=== PATIENT | female | born 1955 | race Caucasian/White ===

== ENCOUNTER 2019-11-04 17:05 | Inpatient (IN) | payer MEDICARE ==
--- NOTE | 2019-11-04 20:03 | ER Document Report ---
ED General - General Chief Complaint: Altered Mental Status Stated Complaint: NAUSEA VOMITTING DIARRHEA Time Seen by Provider: 11/04/19 19:54 Mode of Arrival: Ambulatory Information source: Patient TRAVEL OUTSIDE OF THE [place] IN LAST 30 DAYS: No - HPI Onset: Other - over the last several days Onset/Duration: Gradual Severity: Moderate Pain Level: 1 Associated symptoms: Diarrhea, Nausea, Vomiting, Weakness, Other - confusion Exacerbated by: Denies Relieved by: Denies Similar symptoms previously: No Recently seen / treated by doctor: No Notes: 64 year old female with a history of DM, HTN, COPD presents to the ER for nausea, vomiting, diarrhea, weakness, confusion for the last several days. The patient's daughter apparently told nursing staff the patient is not ever confused so this is very different for her. The patient is able to answer questions but will frequently tell me she just feels sick. The patient denies known sick contacts or recent travel. Past Medical History - General Information source: Patient Cannot obtain history due to: Altered mental status - Social History Smoking Status: Current Every Day Smoker Frequency of alcohol use: None Drug Abuse: None Lives with: Family Family History: Reviewed & Not Pertinent - Past Medical History Cardiac Medical History: Reports: Hx Hypertension Pulmonary Medical History: Reports: Hx COPD Endocrine Medical History: Reports: Hx Diabetes Mellitus Type 2 Psychiatric Medical History: Reports: Hx Depression Past Surgical History: Reports: Hx Cholecystectomy, Hx Hysterectomy - Immunizations Hx Diphtheria, Pertussis, Tetanus Vaccination: No Review of Systems - Review of Systems Constitutional: Weakness, Other - confusion EENT: No symptoms reported Cardiovascular: No symptoms reported Respiratory: No symptoms reported Gastrointestinal: Diarrhea, Nausea, Vomiting Genitourinary: No symptoms reported Female Genitourinary: No symptoms reported Musculoskeletal: No symptoms reported Skin: No symptoms reported Hematologic/Lymphatic: No symptoms reported Neurological/Psychological: Confusion -: Yes All other systems reviewed and negative Physical Exam - Vital signs Vitals: Temp Pulse Resp BP Pulse Ox 98.2 F 113 H 20 131/64 H 91 L 11/04/19 19:08 11/04/19 19:08 11/04/19 19:08 11/04/19 19:08 11/04/19 19:08 - Notes Notes: GENERAL: Somewhat ill-appearing, well-nourished, somewhat confused HEAD: Atraumatic, normocephalic. EYES: Pupils equal round and reactive to light, extraocular movements intact, sclera anicteric, conjunctiva are normal. ENT: External ears normal, nares patent, oropharynx clear without exudates. Moist mucous membranes. NECK: Normal range of motion, supple without lymphadenopathy or JVD. LUNGS: Breath sounds clear to auscultation bilaterally and equal. No wheezes rales or rhonchi. HEART: Regular rate and rhythm without murmurs, rubs or gallops. ABDOMEN: Soft, nontender, normoactive bowel sounds. No guarding, no rebound. No masses appreciated. EXTREMITIES: Normal range of motion, no pitting or edema. No clubbing or cyanosis. NEUROLOGICAL: Oriented to person, place but not to time. Cranial nerves II through XII grossly intact. Normal speech, normal gait. PSYCH: Normal mood, normal affect. SKIN: Warm, Dry, normal turgor, no rashes or lesions noted. Course - Re-evaluation Re-evalutation: 11/05/19 00:29 The patient was found to have hyperglycemia, hypercalcemia, and possible m etastatic changes of the skull on head CT. Patient was is somewhat altered in the ER but her vital signs of fairly stable. Patient treated with IV fluids and an insulin infusion. I had the ICU midlevel provider evaluate the patient due to her hyperglycemia and hypercalcemia and he did so. The ICU midlevel provider feels the patient can be safely managed on the IMCU floor. Dr. Singh was therefore consulted and he accepted the patient. Critical care time was spent speaking to consultants, managing the patient's treatment, and frequent re- evaluations. - Vital Signs Vital signs: Temp Pulse Resp BP Pulse Ox 98.2 F 80 25 H 166/87 H 94 11/04/19 19:56 11/04/19 23:00 11/04/19 23:05 11/04/19 23:05 11/04/19 23:05 - Laboratory Result Diagrams: 11/04/19 20:07 11/04/19 21:27 Laboratory results interpreted by me: 11/04/19 11/04/19 11/04/19 20:07 20:07 21:27 WBC 17.9 H RDW 16.7 H Plt Count 104 L Seg Neuts % (Manual) 95 H Lymphocytes % (Manual) 4 L Monocytes % (Manual) 1 L Abs Neuts (Manual) 17.0 H Sodium 130.1 L Chloride 89 L BUN 37 H Creatinine 1.78 H Est GFR ( Amer) 35 L Est GFR (MDRD) Non-Af 29 L Glucose 578 H* Lactic Acid 3.7 H Calcium 18.9 H* Alkaline Phosphatase 160 H Total Protein 6.2 L - Diagnostic Test Radiology reviewed: Image reviewed, Reports reviewed - EKG Interpretation by Me EKG shows normal: Sinus rhythm, [place], Intervals, QRS Complexes, ST-T Waves Rate: Tachycardia Rhythm: NSR Additional EKG results interpreted by me: 11/04/19 20:13 LVH, borderline inferior q waves Discharge - Discharge Clinical Impression: Hypercalcemia, Hyperglycemia Altered mental status Qualifiers: Altered mental status type: unspecified Qualified Code(s): R41.82 - Altered mental status, unspecified Condition: Stable Disposition: ADMITTED INPATIENT Admitting Provider: Samantha (Hospitalist) Unit Admitted: [facility]
[2019-11-04 20:37] LABS: HEMOGLOBIN 13.1 g/dL (12.0-15.5); MEAN CORPUSCULAR HGB CONC 32.8 g/dL (32.0-36.0); MEAN CORPUSCULAR VOLUME 86 fl (80-97); PLATELET COUNT 104 10^3/uL (150-450); RED BLOOD COUNT 4.68 10^6/uL (3.72-5.28); RED CELL DISTRIBUTION WIDTH 16.7 % (11.5-14.0); WHITE BLOOD COUNT 17.9 10^3/uL (4.0-10.5)
--- NOTE | 2019-11-04 20:43 | RADIOLOGY REPORT (SQ) ---
EXAM DESCRIPTION: CT HEAD WITHOUT IV CONTRAST COMPLETED DATE/TME: 11/04/2019 00:00 CLINICAL HISTORY: 64 years, Female, AMS COMPARISON: None. TECHNIQUE: Noncontrast CT head was acquired. Coronal and sagittal reformations were created. Images stored on PACS. All CT scanners at this facility use dose modulation, iterative reconstruction, and/or weight based dosing when appropriate to reduce radiation dose to as low as reasonably achievable (ALARA). [facility]: Dose Right [facility]: CareDose [facility]: Dose Right [facility]: Teradose 4D [facility]: CURRENT LIMITATIONS: None. FINDINGS: Evaluation of the brain parenchyma reveals mild periventricular and patchy subcortical white matter low attenuation. A more focal area of hypodensity is noted about the anterior aspect of the left lentiform nucleus extending into the myles radiata. No acute intracranial hemorrhage, mass effect, or extra-axial fluid is seen. Ventricles and sulcal spaces are normal in size and configuration. The sella is nearly completely empty. Globes and orbits show no acute abnormality. Paranasal sinuses and mastoid air cells are clear. Innumerable lucent foci are noted throughout the calvarium and skull base. This includes the clivus. In addition, these findings are most conspicuous on the sagittal reformations. IMPRESSION: No acute intracranial hemorrhage or mass effect. Mild chronic microvascular ischemic change with remote lacunar infarct about the anterior aspect of the left lentiform nucleus extending into the myles radiata. Widespread lucent lesions throughout the calvarium and skull base, concerning for either metastatic disease or multiple myeloma. Correlate. TECHNICAL DOCUMENTATION: Quality ID # 436: Final reports with documentation of one or more dose reduction techniques (e.g., Automated exposure control, adjustment of the mA and/or kV according to patient size, use of iterative reconstruction technique) copyright 2011 [employer]- All Rights Reserved
--- NOTE | 2019-11-04 20:48 | RADIOLOGY REPORT (SQ) ---
EXAM DESCRIPTION: XR CHEST 1 VIEW COMPLETED DATE/TME: 11/04/2019 20:01 CLINICAL HISTORY: 64 years, Female, eval for pneumonia COMPARISON: Prior study from 06/13/2014 NUMBER OF VIEWS: One TECHNIQUE: Single frontal view of the chest was obtained portably LIMITATIONS: None. FINDINGS: Cardiac and mediastinal contours are stable. Lungs are clear. No pleural effusion or pneumothorax. The descending thoracic aorta is tortuous. IMPRESSION: No acute disease. copyright 2010 [employer]- All Rights Reserved
[2019-11-04 21:02] LABS: ABSOLUTE LYMPHOCYTES# (MANUAL) 0.7 10^3/uL (0.5-4.7); ABSOLUTE MONOCYTES # (MANUAL) 0.2 10^3/uL (0.1-1.4); BASOPHILS % (MANUAL) 0 % (0-2); EOSINOPHILS % (MANUAL) 0 % (0-6); LYMPHOCYTES % (MANUAL) 4 % (13-45); MONOCYTES % (MANUAL) 1 % (3-13); SEGMENTED NEUTROPHILS % (MAN) 95 % (42-78); TOTAL CELLS COUNTED 100
[2019-11-04 21:03] LABS: ANISOCYTOSIS 1+; POIKILOCYTOSIS 1+
[2019-11-04 21:04] LABS: OVALOCYTES 1+; PLATELET COMMENT DECREASED
[2019-11-04] MEDS: NORMAL SALINE 1000 ML 1,000 ML IV PRN ×2 (21:17→22:47)
[2019-11-04 22:09] LABS: ALBUMIN 3.5 g/dL (3.5-5.0); ALKALINE PHOSPHATASE 160 U/L (38-126); ANION GAP 11 (5-19); ASPARTATE AMINO TRANSFERASE 30 U/L (14-36); BILIRUBIN,DIRECT 0.3 mg/dL (0.0-0.4); BILIRUBIN,TOTAL 1.2 mg/dL (0.2-1.3); BLOOD UREA NITROGEN 37 mg/dL (7-20); CARBON DIOXIDE 30 mmol/L (22-30); CHLORIDE 89 mmol/L (98-107); POTASSIUM 3.8 mmol/L (3.6-5.0); TOTAL PROTEIN 6.2 g/dL (6.3-8.2)
[2019-11-04 22:23] LABS: ALCOHOL < 10 mg/dL (NONE DETECTED); CALCIUM 18.9 mg/dL (8.4-10.2)
[2019-11-04] MEDS ORDERED: DEXTROSE 40% GEL 15 GM TUBE PO PRN ×2 (22:32)
[2019-11-04] MEDS ORDERED: DEXTROSE 50%-WATER 25 GM/50 ML DISP.SYRIN IV PRN ×2 (22:32)
[2019-11-04] MEDS ORDERED: NORMAL SALINE 100 ML with INSULIN REGULAR, HUMAN 100 UNIT IV PRN ×2 (22:32)
[2019-11-04] MEDS ORDERED: GLUCAGON,HUMAN RECOMB 1 MG INJ IM PRN (22:32)
[2019-11-04] MEDS ORDERED: INSULIN REG, HUMAN 100 UNIT/ML 3 ML VIAL (PYX) ONE (23:27)
[2019-11-05] MEDS ORDERED: MAGNESIUM HYDROXIDE SUSP 30 ML UDCUP PO PRN (00:31)
[2019-11-05] MEDS ORDERED: LEVALBUTEROL HCL NEB 0.63 MG/3 ML AMPUL NEB PRN (00:31)
[2019-11-05] MEDS ORDERED: MAG HYDROX/AL HYDROX/SIMETH SUSP 30 ML UDCUP PO PRN (00:31)
[2019-11-05] MEDS ORDERED: PROMETHAZINE HCL INJ 25 MG/1 ML VIAL IV PRN (00:31)
[2019-11-05] MEDS ORDERED: HYDRALAZINE HCL INJ/PF 20 MG/1 ML SDV IV PRN (00:40)
[2019-11-05] MEDS ORDERED: LORAZEPAM INJ 2 MG/1 ML VIAL IV PRN (00:40)
[2019-11-05] MEDS ORDERED: ACETAMINOPHEN 325 MG TABLET PO PRN ×2 (00:40→23:46)
[2019-11-05] MEDS ORDERED: GUAIFENESIN SYRP 200 MG/10 ML UDC PO PRN (00:40)
[2019-11-05] MEDS ORDERED: ACETAMINOPHEN 650 MG SUPP.RECT PR PRN (00:40)
[2019-11-05] MEDS ORDERED: DEXTROSE 40% GEL 15 GM TUBE PO PRN ×2 (00:41)
[2019-11-05] MEDS ORDERED: NORMAL SALINE 100 ML with INSULIN REGULAR, HUMAN 100 UNIT IV PRN ×2 (00:41)
[2019-11-05] MEDS ORDERED: DEXTROSE 50%-WATER 25 GM/50 ML DISP.SYRIN IV PRN ×2 (00:41)
[2019-11-05] MEDS ORDERED: GLUCAGON,HUMAN RECOMB 1 MG INJ IM PRN (00:41)
[2019-11-05 03:33] LABS: FREE T3 1.99 pg/mL (2.77-5.27)
--- NOTE | 2019-11-05 03:37 | PDOC H&P ---
History of Present Illness Admission Date/PCP: 11/05/2019 00:01 INES HUNT MD Patient complains of: Altered mental status History of Present Illness: MELISSA SAM is a 64 year old female who presented to the emergency room with her family complaining of a 5-day history of altered mental status. Patient's daughter admitted the patient's mental status has gradually worsened over the l ast 5 days to the point where she is now continuously moderately confused. The patient is pleasant and affable, but confused and unable to provide any input into her medical history. Her altered mental status has been associated with nausea, vomiting and diarrhea over the same 5-day interval. Her altered mental status has been accompanied by generalized weakness and lethargy. Her daughter denies any additional associated or accompanying signs and symptoms. Her daughter denies prior similar episodes. Her daughter has not identified any aggravating or ameliorating factors for her mother's altered mental status. In the emergency room she was found to have a leukocytosis, hyperglycemia, severe hypercalcemia and an acute kidney injury. She was subsequently admitted to the hospital for further evaluation treatment. Past Medical History Past Medical History: Patient is unable to provide medical history due to her acute confusion. The information presented for past medical history, past surgical history, social history and family medical history are obtained from the best available reliable source. Cardiac Medical History: Reports: Hypertension Denies: Coronary Artery Disease, Myocardial Infarction, Hyperlipidema Pulmonary Medical History: Reports: Chronic Obstructive Pulmonary Disease (COPD) Denies: Asthma, Pneumonia EENT Medical History: Denies: Cataracts, Ears - Hearing aids Neurological Medical History: Denies: Hemorrhagic CVA, Ischemic CVA, Seizures Endocrine Medical History: Reports: Diabetes Mellitus Type 2 Denies: Diabetes Mellitus Type 1, Hyperthyroidism, Hypothyroidism Renal/ Medical History: Denies: Chronic Kidney Disease, Nephrolithiasis Malignancy Medical History: Reports: None GI Medical History: Denies: Cirrhosis, Hepatitis Musculoskeltal Medical History: Denies: Arthritis, Fibromyalgia Skin Medical History: Denies: Eczema, Psoriasis Psychiatric Medical History: Reports: Depression, Tobacco Dependency Denies: Alcohol Dependency, Substance Abuse Traumatic Medical History: Reports: None Hematology: Denies: Anemia, Bleeding Tendencies Infectious Medical History: Reports: None Past Surgical History Past Surgical History: Patient is unable to provide medical history due to her acute confusion. The information presented for past medical history, past surgical history, social history and family medical history are obtained from the best available reliable source. Past Surgical History: Reports: Cholecystectomy, Hysterectomy Social History Information Source: Relative Lives with: Family, Spouse/Significant other Smoking Status: Current Every Day Smoker Electronic Cigarette use?: No Frequency of Alcohol Use: None Hx Recreational Drug Use: No Drugs: None Hx Prescription Drug Abuse: No Past Social History Note: Patient is unable to provide medical history due to her acute confusion. The information presented for past medical history, past surgical history, social history and family medical history are obtained from the best available reliable source. - Advance Directive Resuscitation Status: Full Code Surrogate healthcare decision maker:: Leonadr Sam Family History Family History: No family medical history information is available in the medical record. Parental Family History Reviewed: No Children Family History Reviewed: No Sibling(s) Family History Reviewed.: No Medication/Allergy Home Medications: Azithromycin [Zithromax 250 mg Tablet] 250 mg PO ASDIR PRN #6 tablet 08/01/12 Hydrocodone Bit/Homatropine [Hycodan Syrup 5-1.5 mg/ 5 ml Ud Cup] 5 ml PO ASDIR PRN #100 ml 08/01/12 Polymyxin B Sulfate/Tmp [Polytrim Oph Soln 10 Ml Bottle] 1 drop OD QID #1 bottle 08/01/12 Review of Systems ROS unobtainable: Due to mental status - Acute confusion Physical Exam Vital Signs: Temp Pulse Resp BP Pulse Ox 98.2 F 80 25 H 166/87 H 94 11/04/19 19:56 11/04/19 23:00 11/04/19 23:05 11/04/19 23:05 11/04/19 23:05 Intake & Output 11/02/19 11/03/19 11/04/19 23:59 23:59 23:59 Intake Total 1000 Balance 1000 General appearance: PRESENT: no acute distress, cooperative, other - Confused Head exam: PRESENT: atraumatic, normocephalic Eye exam: PRESENT: conjunctiva pink. ABSENT: conjunctival injection, scleral icterus Ear exam: PRESENT: normal external ear exam. ABSENT: bleeding, drainage Mouth exam: PRESENT: dry mucosa, neck supple Neck exam: ABSENT: thyromegaly, tracheal deviation Respiratory exam: PRESENT: prolonged expiratory phas - Minimally prolonged expiratory phase noted in all gaspar, symmetrical, unlabored, wheezes - Minimal expiratory wheezes noted throughout all gaspar Cardiovascular exam: PRESENT: RRR. ABSENT: clicks, gallop, rubs Pulses: PRESENT: normal radial pulses, normal dorsalis pedis pul Vascular exam: PRESENT: normal capillary refill. ABSENT: pallor GI/Abdominal exam: PRESENT: normal bowel sounds, soft Rectal exam: PRESENT: deferred Extremities exam: ABSENT: joint swelling, pedal edema Musculoskeletal exam: ABSENT: deformity, dislocation Neurological exam: PRESENT: altered - Mental confusion with mild lethargy, somewhat irritable when initially aroused. Psychiatric exam: PRESENT: other - Confused, irritability noted on arousal Skin exam: PRESENT: dry, intact, warm. ABSENT: jaundice, rash, urticaria Results Laboratory Results: 11/04/19 20:07 11/04/19 21:27 11/04/19 11/04/19 11/04/19 20:07 20:07 20:07 WBC 17.9 H RBC 4.68 Hgb 13.1 Hct 40.0 MCV 86 MCH 28.0 MCHC 32.8 RDW 16.7 H Plt Count 104 L Seg Neutrophils % Not Reportable Sodium Cancelled Potassium Cancelled Chloride Cancelled Carbon Dioxide Cancelled Anion Gap Cancelled BUN Cancelled Creatinine Cancelled Est GFR ( Amer) Cancelled Est GFR (Non-Af Amer) Cancelled Glucose Cancelled Lactic Acid 3.7 H Calcium Cancelled Magnesium Cancelled Total Bilirubin Cancelled AST Cancelled Alkaline Phosphatase Cancelled Total Protein Cancelled Albumin Cancelled 11/04/19 21:27 WBC RBC Hgb Hct MCV MCH MCHC RDW Plt Count Seg Neutrophils % Sodium 130.1 L Potassium 3.8 Chloride 89 L Carbon Dioxide 30 Anion Gap 11 BUN 37 H Creatinine 1.78 H Est GFR ( Amer) 35 L Est GFR (Non-Af Amer) Glucose 578 H* Lactic Acid Calcium 18.9 H* Magnesium 1.9 Total Bilirubin 1.2 AST 30 Alkaline Phosphatase 160 H Total Protein 6.2 L Albumin 3.5 Impressions: Head CT 11/04/19 00:00 IMPRESSION: No acute intracranial hemorrhage or mass effect. Mild chronic microvascular ischemic change with remote lacunar infarct about the anterior aspect of the left lentiform nucleus extending into the myles radiata. Widespread lucent lesions throughout the calvarium and skull base, concerning for either metastatic disease or multiple myeloma. Correlate. TECHNICAL DOCUMENTATION: Quality ID # 436: Final reports with documentation of one or more dose reduction techniques (e.g., Automated exposure control, adjustment of the mA and/or kV according to patient size, use of iterative reconstruction technique) copyright 2011 [email or web address]- All Rights Reserved Chest X-Ray 11/04/19 20:01 IMPRESSION: No acute disease. copyright 2011 [email or web address]- All Rights Reserved Assessment and Plan - Diagnosis (2) Acute kidney injury (nontraumatic) Is this a current diagnosis for this admission?: Yes (3) Hypercalcemia Is this a current diagnosis for this admission?: Yes (4) Hyperglycemia Is this a current diagnosis for this admission?: Yes (5) Leukocytosis Qualifiers: Leukocytosis type: unspecified Qualified Code(s): D72.829 - Elevated white blood cell count, unspecified Is this a current diagnosis for this admission?: Yes (6) Diabetes mellitus type 2 in nonobese Is this a current diagnosis for this admission?: Yes (7) Hypertension Is this a current diagnosis for this admission?: Yes (8) Chronic obstructive pulmonary disease Is this a current diagnosis for this admission?: Yes (9) Tobacco use disorder, severe, dependence Is this a current diagnosis for this admission?: Yes - Plan Summary Summary: Patient is admitted to [facility] where she will receive routine supportive and symptomatic cares. She will be on continuous telemetry monitoring. She will receive high-volume IV fluids, as well as a titrated IV insulin infusion per protocol. Her renal function and electrolytes will be monitored closely with serial basic metabolic profiles and magnesium levels. She will receive Ativan 1 mg IV every 4 hours as needed for anxiety or restlessness. She will be on a cardiac and diabetic restricted diet. Her usual medications will be continued, as appropriate, once her medication list has been verified and reconciled. CBCs and other laboratory and/or radiographic evaluations will be obtained as appropriate. A nicotine replacement patch will be available for the patient's use, if desired. - Time Time Spent with patient: Less than 15 minutes Medications reviewed and adjusted accordingly: Yes Anticipated discharge: Home with Homehealth - Inpatient Certification Based on my medical assessment, after consideration of the patient's comorbi dities, presenting symptoms, or acuity I expect that the services needed warrant INPATIENT care.: Yes I certify that my determination is in accordance with my understanding of Medicare's requirements for reasonable and necessary INPATIENT services [42 CFR 412.3e].: Yes Medical Necessity: Need Close Monitoring Due to Risk of Patient Decompensation, Need For IV Fluids, Need For Continuous Telemetry Monitoring, Need for Neurological Checks, Risk of Complication if Not Cared For in Hospital
[2019-11-05 03:47] LABS: THYROID STIMULATING HORMONE 0.67 uIU/mL (0.47-4.68)
[2019-11-05 04:01] LABS: ARTERIAL BLOOD BASE EXCESS -1.7 mmol/L; ARTERIAL BLOOD FIO2 3L; ARTERIAL BLOOD H2CO3 1.15 mmol/L (1.05-1.35); ARTERIAL BLOOD HCO3 22.8 mmol/L (20-24); ARTERIAL BLOOD O2 SATURATION 92.5 % (94-98); ARTERIAL BLOOD PCO2 38.1 mmHg (35-45); ARTERIAL BLOOD PO2 64.2 mmHg (80-100)
[2019-11-05] MEDS: POTASSI CL 20 MEQ/NS 1L 1,000 ML IV PRN ×2 (04:05→08:28)
[2019-11-05] MEDS ORDERED: POTASSIUM CHLORIDE 20 MEQ/50 ML RTU IV ONE (05:30)
[2019-11-05] MEDS ORDERED: DILTIAZEM HCL INJ 25 MG/5 ML VIAL IV ONE ×2 (05:30→07:00)
[2019-11-05 05:39] LABS: HEMATOCRIT 37.6 % (36.0-47.0); HEMOGLOBIN 12.5 g/dL (12.0-15.5); MEAN CORPUSCULAR HEMOGLOBIN 27.8 pg (27.0-33.4); MEAN CORPUSCULAR HGB CONC 33.2 g/dL (32.0-36.0); MEAN CORPUSCULAR VOLUME 84 fl (80-97); RED BLOOD COUNT 4.49 10^6/uL (3.72-5.28); RED CELL DISTRIBUTION WIDTH 16.8 % (11.5-14.0); WHITE BLOOD COUNT 14.1 10^3/uL (4.0-10.5)
[2019-11-05] MEDS: HEPARIN SOD (PORCINE) 5,000 UNIT/ML 1 ML VIAL SUBCUT SCH ×3 (05:39→23:38)
[2019-11-05 05:50] LABS: ANION GAP 9 (5-19); BLOOD UREA NITROGEN 36 mg/dL (7-20); CARBON DIOXIDE 26 mmol/L (22-30); CHLORIDE 99 mmol/L (98-107); GLUCOSE 376 mg/dL (75-110); PHOSPHORUS 3.6 mg/dL (2.5-4.5); POTASSIUM 3.7 mmol/L (3.6-5.0)
[2019-11-05 05:50] LABS: APPEARANCE,URINE SLIGHTLY-CLOUDY; BILIRUBIN,URINE NEGATIVE (NEGATIVE); COLOR,URINE YELLOW; GLUCOSE, URINE >=500 mg/dL (NEGATIVE); KETONES,URINE NEGATIVE (NEGATIVE); PROTEIN,URINE 30 mg/dL (NEGATIVE); URINE SPECIFIC GRAVITY 1.014; UROBILINOGEN,URINE NEGATIVE mg/dL (<2.0)
[2019-11-05 05:58] LABS: PLATELET COUNT 84 10^3/uL (150-450)
[2019-11-05 06:36] LABS: CALCIUM 18.9 mg/dL (8.4-10.2)
[2019-11-05] MEDS: DILTIAZEM HCL/D5W 125 MG/125 ML RTUINJ IV PRN ×3 (07:30→10:02)
[2019-11-05] MEDS ORDERED: ZOLEDRONIC ACID 4 MG/100 ML RTU IV ONE ×3 (07:35→08:00)
--- NOTE | 2019-11-05 07:48 | EKG REPORT ---
SEVERITY:- ABNORMAL ECG - SINUS TACHYCARDIA PROBABLE LEFT ATRIAL ABNORMALITY LVH WITH SECONDARY REPOLARIZATION ABNORMALITY BORDERLINE INFERIOR Q WAVES : Confirmed by: Noble Kelley MD 05-Nov-2019 07:47:46
[2019-11-05] MEDS ORDERED: METOCLOPRAMIDE HCL INJ/PF 10 MG/2 ML SDV IV SCH (08:00)
[2019-11-05] MEDS ORDERED: CALCITONIN,SALMON,SYNTHETIC 400 UNIT/2 ML VIAL IM ONE ×2 (08:15→18:00)
[2019-11-05] MEDS ORDERED: NORMAL SALINE 1000 ML 1,000 ML IV ONE (08:41)
[2019-11-05] MEDS ORDERED: NORMAL SALINE 1000 ML 1,000 ML IV PRN (08:41)
[2019-11-05] MEDS ORDERED: INSULIN NPH (ISOPHANE), HUMAN 100 UNIT/ML 3 ML SUBCUT ONE (09:00)
[2019-11-05] MEDS ORDERED: DILTIAZEM HCL/D5W 125 MG/125 ML RTUINJ IV ONE (09:33)
[2019-11-05 09:42] LABS: ARTERIAL BLOOD BASE EXCESS 1.2 mmol/L; ARTERIAL BLOOD H2CO3 1.21 mmol/L (1.05-1.35); ARTERIAL BLOOD HCO3 25.7 mmol/L (20-24); ARTERIAL BLOOD O2 SATURATION 99.2 % (94-98); ARTERIAL BLOOD PCO2 40.3 mmHg (35-45); ARTERIAL BLOOD PH 7.42 (7.35-7.45); ARTERIAL BLOOD PO2 173.2 mmHg (80-100)
[2019-11-05 09:43] LABS: ARTERIAL BLOOD FIO2 15L
[2019-11-05] MEDS ORDERED: DEXAMETHASONE SOD PHOS INJ 10 MG/1 ML VIAL IV ONE (10:00)
[2019-11-05] MEDS ORDERED: PANTOPRAZOLE SODIUM 40 MG VIAL IV SCH (10:00)
[2019-11-05] MEDS ORDERED: DOCUSATE SODIUM 100 MG CAPSULE PO SCH (10:00)
--- NOTE | 2019-11-05 10:13 | RADIOLOGY REPORT (SQ) ---
EXAM DESCRIPTION: CHEST SINGLE VIEW IMAGES COMPLETED DATE/TIME: 11/05/2019 10:04 am REASON FOR STUDY: hypoxia COMPARISON: 11/04/2019. EXAM PARAMETERS: NUMBER OF VIEWS: One view. TECHNIQUE: Single frontal radiographic view of the chest acquired. RADIATION DOSE: NA LIMITATIONS: None. FINDINGS: LUNGS AND PLEURA: No opacities, masses or pneumothorax. No pleural effusion. MEDIASTINUM AND HILAR STRUCTURES: No masses. Contour normal. HEART AND VASCULAR STRUCTURES: Mild cardiomegaly. Mild vascular prominence. BONES: No acute findings. HARDWARE: None in the chest. OTHER: No other significant finding. IMPRESSION: STABLE APPEARANCE. MILD CARDIOMEGALY AND MILD VASCULAR PROMINENCE. TECHNICAL DOCUMENTATION: JOB ID: [id number] 2010 [email or web address]- All Rights Reserved Reading location - IP/workstation name: [email or web address]
--- NOTE | 2019-11-05 12:03 | PDOC CONSULTATION ---
Consultation Consult Date: 11/05/19 Provider Consulted: Jayden HERNANDEZ Consult reason:: hypercalcemia and MELA History of Present Illness Admission Date/PCP: 11/05/19 00:00 INES HUNT MD History of Present Illness: MELISSA SAM is a 64 year old female with unknown past medical history was as ked to be seen by the hospitalist for evaluation of her hypercalcemia and MELA. The patient is currently sleeping or rather unresponsive even to loud oral commands and shaking. She is breathing normally and looks comfortable. She does respond to painful stimuli. History was also gathered by discussions with the treating nurse as well as review of chart. As per chart review the patient was brought to the emergency room by her family complaining of a 5-day history of altered mental status. Patient's daughter admitted the patient's mental status has gradually worsened over the last 5 days to the point where she is now continuously moderately confused. Her altered mental status has been associated with nausea, vomiting and diarrhea over the same 5-day interval. Her altered mental status has been accompanied by generalized weakness and lethargy. Her daughter denies any additional asso ciated or accompanying signs and symptoms. Her daughter denies prior similar episodes. Her daughter has not identified any aggravating or ameliorating factors for her mother's altered mental status. In the emergency room she was found to have a leukocytosis, hyperglycemia, severe hypercalcemia of 18.9, slightly elevated ALP of 160, low PTH of 9.9, and an acute kidney injury with a creatinine of 1.7 which has dropped to 1.2 as of this AM. She has been begun on IV fluid resuscitation along with administration of calcitonin and bisphosphonates. She is making relatively good amounts of barrera k-colored urine. Other relevant labs and studies shows that her sugars were high and A1c was 9.9, CO2 was 30 and has dropped down to [address] hydration and a CT scan done showed multiple translucent lesions in the skull. Past Medical History Cardiac Medical History: Denies: Coronary Artery Disease, Hyperlipidemia, Myocardial Infarction Pulmonary Medical History: Reports: Chronic Obstructive Pulmonary Disease (COPD) Denies: Asthma, Pneumonia EENT Medical History: Denies: Cataracts, Ears - Hearing aids Neurological Medical History: Denies: Hemorrhagic CVA, Ischemic CVA, Seizures Endocrine Medical History: Reports: Diabetes Mellitus Type 2 Denies: Diabetes Mellitus Type 1, Hyperthyroidism, Hypothyroidism Complications of Diabetes: Reports: None Renal/ Medical History: Denies: Nephrolithiasis Malignancy Medical History: Reports: None GI Medical History: Denies: Cirrhosis, Hepatitis Musculoskeltal Medical History: Denies: Arthritis, Fibromyalgia Skin Medical History: Denies: Eczema, Psoriasis Psychiatric Medical History: Reports: Depression, Tobacco Dependency Denies: Alcohol Dependency, Substance Abuse Traumatic Medical History: Reports: None Infectious Medical History: Reports: None Past Surgical History Past Surgical History: Reports: Cholecystectomy, Hysterectomy Social History Lives with: Family, Spouse/Significant other Smoking Status: Current Every Day Smoker Electronic Cigarette use?: No Frequency of Alcohol Use: None Hx Recreational Drug Use: No Drugs: None Hx Prescription Drug Abuse: No - Advance Directive Resuscitation Status: Full Code Family History Parental Family History Reviewed: No Children Family History Reviewed: No Sibling(s) Family History Reviewed.: No Medication/Allergy Home Medications: Azithromycin [Zithromax 250 mg Tablet] 250 mg PO ASDIR PRN #6 tablet 08/01/12 Hydrocodone Bit/Homatropine [Hycodan Syrup 5-1.5 mg/ 5 ml Ud Cup] 5 ml PO ASDIR PRN #100 ml 08/01/12 Polymyxin B Sulfate/Tmp [Polytrim Oph Soln 10 Ml Bottle] 1 drop OD QID #1 bottle 08/01/12 Allergies/Adverse Reactions: No Known Allergies Allergy (Unverified 11/05/19 03:41) Review of Systems ROS unobtainable: Due to mental status Physical Exam Vital Signs: Temp Pulse Resp BP Pulse Ox 100.2 F 104 H 19 127/71 H 86 L 11/05/19 08:05 11/05/19 09:56 11/05/19 08:05 11/05/19 09:56 11/05/19 08:05 Intake & Output 11/04/19 11/05/19 11/06/19 06:59 06:59 06:59 Intake Total 2018 1974 Balance 2018 1974 Weight 86.4 kg Exam: She is not responding to loud oral commands but responds to painful stimuli. She is breathing comfortably and looks in no distress. Eye exam: PRESENT: EOMI, PERRLA. ABSENT: scleral icterus Ear exam: PRESENT: normal external ear exam Neck exam: ABSENT: lymphadenopathy, meningismus, tenderness, thyromegaly, tracheal deviation Respiratory exam: PRESENT: clear to auscultation paula, decreased breath sounds. ABSENT: crackles Cardiovascular exam: PRESENT: +S1, +S2 GI/Abdominal exam: PRESENT: normal bowel sounds, soft. ABSENT: organomegaly, tenderness Extremities exam: ABSENT: pedal edema Neurological exam: PRESENT: altered Skin exam: PRESENT: dry. ABSENT: cyanosis, erythema, mottled, rash Results Laboratory Results: 11/05/19 05:14 11/05/19 05:14 11/04/19 11/04/19 11/04/19 20:07 20:07 20:07 WBC 17.9 H RBC 4.68 Hgb 13.1 Hct 40.0 MCV 86 MCH 28.0 MCHC 32.8 RDW 16.7 H Plt Count 104 L Seg Neutrophils % Not Reportable Carbonic Acid HCO3/H2CO3 Ratio ABG pH ABG pCO2 ABG pO2 ABG HCO3 ABG O2 Saturation ABG Base Excess FiO2 Sodium Cancelled Potassium Cancelled Chloride Cancelled Carbon Dioxide Cancelled Anion Gap Cancelled BUN Cancelled Creatinine Cancelled Est GFR ( Amer) Cancelled Est GFR (Non-Af Amer) Cancelled Glucose Cancelled Lactic Acid 3.7 H Calcium Cancelled Phosphorus Magnesium Cancelled Total Bilirubin Cancelled AST Cancelled Alkaline Phosphatase Cancelled Ammonia Total Protein Cancelled Albumin Cancelled TSH Free T4 Free T3 pg/mL PTH Intact Urine Color Urine Appearance Urine pH Ur Specific [place] Urine Protein Urine Glucose (UA) Urine Ketones Urine Blood Urine RBC (Auto) 11/04/19 11/04/19 11/05/19 21:27 21:27 02:05 WBC RBC Hgb Hct MCV MCH MCHC RDW Plt Count Seg Neutrophils % Carbonic Acid HCO3/H2CO3 Ratio ABG pH ABG pCO2 ABG pO2 ABG HCO3 ABG O2 Saturation ABG Base Excess FiO2 Sodium 130.1 L Potassium 3.8 Chloride 89 L Carbon Dioxide 30 Anion Gap 11 BUN 37 H Creatinine 1.78 H Est GFR ( Amer) 35 L Est GFR (Non-Af Amer) Glucose 578 H* Lactic Acid Calcium 18.9 H* Phosphorus Magnesium 1.9 Total Bilirubin 1.2 AST 30 Alkaline Phosphatase 160 H Ammonia Total Protein 6.2 L Albumin 3.5 TSH 0.67 Free T4 Free T3 pg/mL 1.99 L PTH Intact Urine Color YELLOW Urine Appearance SLIGHTLY-CLOUDY Urine pH 5.0 Ur Specific [place] 1.014 Urine Protein 30 H Urine Glucose (UA) >=500 H Urine Ketones NEGATIVE Urine Blood SMALL H Urine RBC (Auto) 0 11/05/19 11/05/19 11/05/19 03:20 03:52 05:14 WBC 14.1 H RBC 4.49 Hgb 12.5 Hct 37.6 MCV 84 MCH 27.8 MCHC 33.2 RDW 16.8 H Plt Count 84 L Seg Neutrophils % Carbonic Acid Cancelled 1.15 HCO3/H2CO3 Ratio Cancelled 19:1 ABG pH Cancelled 7.40 ABG pCO2 Cancelled 38.1 ABG pO2 Cancelled 64.2 L ABG HCO3 Cancelled 22.8 ABG O2 Saturation Cancelled 92.5 L ABG Base Excess Cancelled -1.7 FiO2 Cancelled 3L Sodium Potassium Chloride Carbon Dioxide Anion Gap BUN Creatinine Est GFR ( Amer) Est GFR (Non-Af Amer) Glucose Lactic Acid Calcium Phosphorus Magnesium Total Bilirubin AST Alkaline Phosphatase Ammonia Total Protein Albumin TSH Free T4 Free T3 pg/mL PTH Intact Urine Color Urine Appearance Urine pH Ur Specific [place] Urine Protein Urine Glucose (UA) Urine Ketones Urine Blood Urine RBC (Auto) 11/05/19 11/05/19 11/05/19 05:14 05:14 08:59 WBC RBC Hgb Hct MCV MCH MCHC RDW Plt Count Seg Neutrophils % Carbonic Acid HCO3/H2CO3 Ratio ABG pH ABG pCO2 ABG pO2 ABG HCO3 ABG O2 Saturation ABG Base Excess FiO2 Sodium 134.1 L Potassium 3.7 Chloride 99 Carbon Dioxide 26 Anion Gap 9 BUN 36 H Creatinine 1.29 H Est GFR ( Amer) 50 L Est GFR (Non-Af Amer) Glucose 376 H Lactic Acid 3.2 H 2.3 H Calcium 18.9 H* Phosphorus 3.6 Magnesium 2.0 Total Bilirubin AST Alkaline Phosphatase Ammonia Total Protein Albumin TSH Free T4 Free T3 pg/mL PTH Intact Urine Color Urine Appearance Urine pH Ur Specific [place] Urine Protein Urine Glucose (UA) Urine Ketones Urine Blood Urine RBC (Auto) 11/05/19 11/05/19 11/05/19 08:59 08:59 09:25 WBC RBC Hgb Hct MCV MCH MCHC RDW Plt Count Seg Neutrophils % Carbonic Acid 1.21 HCO3/H2CO3 Ratio 21:1 ABG pH 7.42 ABG pCO2 40.3 ABG pO2 173.2 H ABG HCO3 25.7 H ABG O2 Saturation 99.2 H ABG Base Excess 1.2 FiO2 15L Sodium Potassium Chloride Carbon Dioxide Anion Gap BUN Creatinine Est GFR ( Amer) Est GFR (Non-Af Amer) Glucose Lactic Acid Calcium Phosphorus Magnesium Total Bilirubin AST Alkaline Phosphatase Ammonia Total Protein Albumin TSH Free T4 1.07 Free T3 pg/mL PTH Intact 9.9 L Urine Color Urine Appearance Urine pH Ur Specific [place] Urine Protein Urine Glucose (UA) Urine Ketones Urine Blood Urine RBC (Auto) 11/05/19 10:00 WBC RBC Hgb Hct MCV MCH MCHC RDW Plt Count Seg Neutrophils % Carbonic Acid HCO3/H2CO3 Ratio ABG pH ABG pCO2 ABG pO2 ABG HCO3 ABG O2 Saturation ABG Base Excess FiO2 Sodium Potassium Chloride Carbon Dioxide Anion Gap BUN Creatinine Est GFR ( Amer) Est GFR (Non-Af Amer) Glucose Lactic Acid Calcium Phosphorus Magnesium Total Bilirubin AST Alkaline Phosphatase Ammonia 10.4 Total Protein Albumin TSH Free T4 Free T3 pg/mL PTH Intact Urine Color Urine Appearance Urine pH Ur Specific [place] Urine Protein Urine Glucose (UA) Urine Ketones Urine Blood Urine RBC (Auto) 11/05/19 08:59 NT-Pro-B Natriuret Pep 2270 H Impressions: Head CT 11/04/19 00:00 IMPRESSION: No acute intracranial hemorrhage or mass effect. Mild chronic microvascular ischemic change with remote lacunar infarct about the anterior aspect of the left lentiform nucleus extending into the myles radiata. Widespread lucent lesions throughout the calvarium and skull base, concerning for either metastatic disease or multiple myeloma. Correlate. TECHNICAL DOCUMENTATION: Quality ID # 436: Final reports with documentation of one or more dose reduction techniques (e.g., Automated exposure control, adjustment of the mA and/or kV according to patient size, use of iterative reconstruction technique) copyright 2011 [employer]- All Rights Reserved Chest X-Ray 11/05/19 00:00 IMPRESSION: STABLE APPEARANCE. MILD CARDIOMEGALY AND MILD VASCULAR PROMINENCE. Assessment & Plan - Diagnosis (1) Hypercalcemia Is this a current diagnosis for this admission?: Yes Plan: She has very severe hypercalcemia of 18.9 with a low PTH, slightly elevated alkaline phosphatase and multiple trans-lucencies in the skull on CT scan.Differential diagnosis would be leading with multiple myeloma followed by other malignancies especially cancer of the breast,lungs etc. However, surprisingly her hemoglobin is normal even though this could be partly from hemoconcentration. Currently her renal compromise which is mild has responded very well to the fluid resuscitation and she is making relatively good amounts of urine. She has also been administered IV calcitonin and bisphosphonates. At this moment, I do not see the need for hemodialysis. I would follow-up with serial labs and see how she does over the next 24 hours. (2) Acute kidney injury (nontraumatic) Is this a current diagnosis for this admission?: Yes Plan: Nonoliguric. Seems to be responding to IV fluid resuscitation. Monitor. (3) Acute metabolic encephalopathy Plan: Secondary to severe hypercalcemia.See how she responds to current measures that has been instituted.I would avoid sedatives as much as possible. (4) Diabetes mellitus type 2 in nonobese Is this a current diagnosis for this admission?: Yes Plan: As per hospitalist. (5) Tobacco use disorder, severe, dependence Is this a current diagnosis for this admission?: Yes Plan: Which brings in the possibility of malignancy even higher.
[2019-11-05 12:21] LABS: ANION GAP 5 (5-19); BLOOD UREA NITROGEN 38 mg/dL (7-20); CARBON DIOXIDE 25 mmol/L (22-30); CHLORIDE 105 mmol/L (98-107); GLUCOSE 230 mg/dL (75-110); POTASSIUM 3.8 mmol/L (3.6-5.0)
--- NOTE | 2019-11-05 12:25 | EKG REPORT ---
SEVERITY:- ABNORMAL ECG - ATRIAL FIBRILLATION LVH WITH SECONDARY REPOLARIZATION ABNORMALITY INFERIOR INFARCT, AGE INDETERMINATE (NEW) : Confirmed by: Noble Kelley MD 05-Nov-2019 12:23:42
[2019-11-05 12:57] LABS: CALCIUM 18.2 mg/dL (8.4-10.2)
[2019-11-05] MEDS: NORMAL SALINE 1000 ML 1,000 ML IV PRN ×2 (13:27→21:15)
--- NOTE | 2019-11-05 13:27 | PDOC PROGRESS REPORT ---
Subjective Progress Note for:: 11/05/19 Subjective:: Unable to obtain subjective due to mental status Reason For Visit: HYPERCALCEMIA,ACUTE METABOLIC ENCEPHALOPATHY, Physical Exam Vital Signs: Temp Pulse Resp BP Pulse Ox 100.6 F H 102 H 24 H 111/51 L 94 11/05/19 11:19 11/05/19 11:39 11/05/19 11:19 11/05/19 11:39 11/05/19 11:19 Intake & Output 11/04/19 11/05/19 11/06/19 06:59 06:59 06:59 Intake Total 2018 1974 Balance 2018 1974 Weight 86.4 kg General appearance: PRESENT: mild distress. ABSENT: cooperative Neck exam: ABSENT: JVD - Hard to appreciate given patient's body habitus Respiratory exam: PRESENT: clear to auscultation paula, symmetrical, tachypnea, unlabored. ABSENT: crackles, wheezes Cardiovascular exam: PRESENT: irregular rhythm, +S1, +S2, tachycardia GI/Abdominal exam: PRESENT: soft. ABSENT: rebound, rigid, tenderness Extremities exam: PRESENT: pedal edema Neurological exam: PRESENT: altered - Obtunded during time of encounter. GCS T8 E1 V2 M5. ABSENT: alert, awake, CN II-XII grossly intact Results Laboratory Results: 11/05/19 05:14 11/05/19 11:50 11/04/19 11/04/19 11/04/19 20:07 20:07 20:07 WBC 17.9 H RBC 4.68 Hgb 13.1 Hct 40.0 MCV 86 MCH 28.0 MCHC 32.8 RDW 16.7 H Plt Count 104 L Seg Neutrophils % Not Reportable Carbonic Acid HCO3/H2CO3 Ratio ABG pH ABG pCO2 ABG pO2 ABG HCO3 ABG O2 Saturation ABG Base Excess FiO2 Sodium Cancelled Potassium Cancelled Chloride Cancelled Carbon Dioxide Cancelled Anion Gap Cancelled BUN Cancelled Creatinine Cancelled Est GFR ( Amer) Cancelled Est GFR (Non-Af Amer) Cancelled Glucose Cancelled Lactic Acid 3.7 H Calcium Cancelled Phosphorus Magnesium Cancelled Total Bilirubin Cancelled AST Cancelled Alkaline Phosphatase Cancelled Ammonia Total Protein Cancelled Albumin Cancelled TSH Free T4 Free T3 pg/mL PTH Intact Urine Color Urine Appearance Urine pH Ur Specific [place] Urine Protein Urine Glucose (UA) Urine Ketones Urine Blood Urine RBC (Auto) 11/04/19 11/04/19 11/05/19 21:27 21:27 02:05 WBC RBC Hgb Hct MCV MCH MCHC RDW Plt Count Seg Neutrophils % Carbonic Acid HCO3/H2CO3 Ratio ABG pH ABG pCO2 ABG pO2 ABG HCO3 ABG O2 Saturation ABG Base Excess FiO2 Sodium 130.1 L Potassium 3.8 Chloride 89 L Carbon Dioxide 30 Anion Gap 11 BUN 37 H Creatinine 1.78 H Est GFR ( Amer) 35 L Est GFR (Non-Af Amer) Glucose 578 H* Lactic Acid Calcium 18.9 H* Phosphorus Magnesium 1.9 Total Bilirubin 1.2 AST 30 Alkaline Phosphatase 160 H Ammonia Total Protein 6.2 L Albumin 3.5 TSH 0.67 Free T4 Free T3 pg/mL 1.99 L PTH Intact Urine Color YELLOW Urine Appearance SLIGHTLY-CLOUDY Urine pH 5.0 Ur Specific [place] 1.014 Urine Protein 30 H Urine Glucose (UA) >=500 H Urine Ketones NEGATIVE Urine Blood SMALL H Urine RBC (Auto) 0 11/05/19 11/05/19 11/05/19 03:20 03:52 05:14 WBC 14.1 H RBC 4.49 Hgb 12.5 Hct 37.6 MCV 84 MCH 27.8 MCHC 33.2 RDW 16.8 H Plt Count 84 L Seg Neutrophils % Carbonic Acid Cancelled 1.15 HCO3/H2CO3 Ratio Cancelled 19:1 ABG pH Cancelled 7.40 ABG pCO2 Cancelled 38.1 ABG pO2 Cancelled 64.2 L ABG HCO3 Cancelled 22.8 ABG O2 Saturation Cancelled 92.5 L ABG Base Excess Cancelled -1.7 FiO2 Cancelled 3L Sodium Potassium Chloride Carbon Dioxide Anion Gap BUN Creatinine Est GFR ( Amer) Est GFR (Non-Af Amer) Glucose Lactic Acid Calcium Phosphorus Magnesium Total Bilirubin AST Alkaline Phosphatase Ammonia Total Protein Albumin TSH Free T4 Free T3 pg/mL PTH Intact Urine Color Urine Appearance Urine pH Ur Specific [place] Urine Protein Urine Glucose (UA) Urine Ketones Urine Blood Urine RBC (Auto) 11/05/19 11/05/19 11/05/19 05:14 05:14 08:59 WBC RBC Hgb Hct MCV MCH MCHC RDW Plt Count Seg Neutrophils % Carbonic Acid HCO3/H2CO3 Ratio ABG pH ABG pCO2 ABG pO2 ABG HCO3 ABG O2 Saturation ABG Base Excess FiO2 Sodium 134.1 L Potassium 3.7 Chloride 99 Carbon Dioxide 26 Anion Gap 9 BUN 36 H Creatinine 1.29 H Est GFR ( Amer) 50 L Est GFR (Non-Af Amer) Glucose 376 H Lactic Acid 3.2 H 2.3 H Calcium 18.9 H* Phosphorus 3.6 Magnesium 2.0 Total Bilirubin AST Alkaline Phosphatase Ammonia Total Protein Albumin TSH Free T4 Free T3 pg/mL PTH Intact Urine Color Urine Appearance Urine pH Ur Specific [place] Urine Protein Urine Glucose (UA) Urine Ketones Urine Blood Urine RBC (Auto) 11/05/19 11/05/19 11/05/19 08:59 08:59 09:25 WBC RBC Hgb Hct MCV MCH MCHC RDW Plt Count Seg Neutrophils % Carbonic Acid 1.21 HCO3/H2CO3 Ratio 21:1 ABG pH 7.42 ABG pCO2 40.3 ABG pO2 173.2 H ABG HCO3 25.7 H ABG O2 Saturation 99.2 H ABG Base Excess 1.2 FiO2 15L Sodium Potassium Chloride Carbon Dioxide Anion Gap BUN Creatinine Est GFR ( Amer) Est GFR (Non-Af Amer) Glucose Lactic Acid Calcium Phosphorus Magnesium Total Bilirubin AST Alkaline Phosphatase Ammonia Total Protein Albumin TSH Free T4 1.07 Free T3 pg/mL PTH Intact 9.9 L Urine Color Urine Appearance Urine pH Ur Specific [place] Urine Protein Urine Glucose (UA) Urine Ketones Urine Blood Urine RBC (Auto) 11/05/19 11/05/19 10:00 11:50 WBC RBC Hgb Hct MCV MCH MCHC RDW Plt Count Seg Neutrophils % Carbonic Acid HCO3/H2CO3 Ratio ABG pH ABG pCO2 ABG pO2 ABG HCO3 ABG O2 Saturation ABG Base Excess FiO2 Sodium 134.7 L Potassium 3.8 Chloride 105 Carbon Dioxide 25 Anion Gap 5 BUN 38 H Creatinine 1.41 H Est GFR ( Amer) 45 L Est GFR (Non-Af Amer) Glucose 230 H Lactic Acid Calcium 18.2 H* Phosphorus Magnesium 1.9 Total Bilirubin AST Alkaline Phosphatase Ammonia 10.4 Total Protein Albumin TSH Free T4 Free T3 pg/mL PTH Intact Urine Color Urine Appearance Urine pH Ur Specific [place] Urine Protein Urine Glucose (UA) Urine Ketones Urine Blood Urine RBC (Auto) 11/05/19 08:59 NT-Pro-B Natriuret Pep 2270 H Impressions: Head CT 11/04/19 00:00 IMPRESSION: No acute intracranial hemorrhage or mass effect. Mild chronic microvascular ischemic change with remote lacunar infarct about the anterior aspect of the left lentiform nucleus extending into the myles radiata. Widespread lucent lesions throughout the calvarium and skull base, concerning for either metastatic disease or multiple myeloma. Correlate. TECHNICAL DOCUMENTATION: Quality ID # 436: Final reports with documentation of one or more dose reduction techniques (e.g., Automated exposure control, adjustment of the mA and/or kV according to patient size, use of iterative reconstruction technique) copyright 2011 [employer]- All Rights Reserved Chest X-Ray 11/05/19 00:00 IMPRESSION: STABLE APPEARANCE. MILD CARDIOMEGALY AND MILD VASCULAR PROMINENCE. Assessment and Plan - Diagnosis (1) Acute metabolic encephalopathy Is this a current diagnosis for this admission?: Yes Plan: Patient obtunded during encounter this morning. GCS T8 E1 V2 M5 initially this morning but starting to show only mild improvement with treatment. Suspect metabolic encephalopathy secondary to severe hypercalcemia. Will aggressively treat patient's hypercalcemia will continue to monitor patient's mental status. She will need close monitoring in the ICU and her level of care has been upgraded. (2) Hypercalcemia Is this a current diagnosis for this admission?: Yes Plan: Etiology unknown. Multiple calvarium lesions noted on head CT raises my suspicion for multiple myeloma. Calcitonin 300 administered IM and zoledronic acid 4 mg given. Also received Decadron. Aggressive IV fluid hydration. Lasix IV 40 mg will be given especially in light of cardiomegaly on chest x-ray. Will check serial metabolic panels. Next CMP at 2 PM. May consider repeating calcitonin administration later today if no significant change. Vitamin D 25 is appropriately low. Work-up for etiology sent including SPEP w/ SU, UPEP, free light chains, vitamin D 125, PTH, PTH RP and vitamin A. (3) Atrial fibrillation with RVR Is this a current diagnosis for this admission?: Yes Plan: No prior history of atrial fibrillation. May be due to electrolyte disturbances. Currently on diltiazem drip. Continue to monitor on telemetry. Echocardiogram order placed. Will need to get more history from family to determine true chads vasc score but seems to be at least 2. Likely will require anticoagulation however best to follow-up with family first about any prior history of bleeding especially given thrombocytopenia. (4) HHNC (hyperglycemic hyperosmolar nonketotic coma) Is this a current diagnosis for this admission?: Yes Plan: Hemoglobin A1c of 9.9 indicating of diabetes. Was initially placed on an insulin drip which have discontinued this morning given improvement of her blood sugars. No ketosis, acidosis or anion gap noted on admission. I I have given NPH 15 units this morning has overlap therapy. Uncertain if patient has been taking any diabetic meds at home but her medic reconciliation by pharmacy does not seem to indicate such. Plan to start her on Lantus tonight. Sliding scale and Accu-Cheks every 6 hours. (5) Fever Is this a current diagnosis for this admission?: Yes Plan: Low-grade fever began suddenly while patient was in the hospital. Absent unit patient. Chest x-ray shows no evidence of pneumonia. Urinalysis is negative. Unclear if there is any intra-abdominal etiology but patient does not seem to flinch much upon palpation of her abdomen. May need further evaluation with CT if no clear cause can be ascertained. Check blood cultures now. Another possible etiology could be occult underlying malignancy. Will discuss with family further about recent events. (6) Cardiomegaly Is this a current diagnosis for this admission?: Yes Plan: Chest x-ray reveals cardiomegaly. BNP also elevated. Given that we are administering high amounts of IV fluid for hypercalcemia, I will order an echo to evaluate for any underlying cardiomyopathy. Patient's daughter states that she has no history of CHF. (7) Acute kidney injury (nontraumatic) Is this a current diagnosis for this admission?: Yes Plan: Elevated creatinine may be secondary to MELA versus CKD. Baseline unknown for patient. Monitor response to IV fluids. (8) Nausea vomiting and diarrhea Is this a current diagnosis for this admission?: Yes Plan: Per documentation, this was her initial presentation at home. Her GI symptoms may be a manifestation of her hypercalcemia. I doubt that her severe hypercalcemia is as a result of dehydration from this. (9) Skull lesion Is this a current diagnosis for this admission?: Yes Plan: Multiple lesions noted incidentally on CT. Plan as above. - Time Time Spent with patient: 35 or more minutes
[2019-11-05] MEDS ORDERED: FUROSEMIDE INJ/PF 40 MG/4 ML SDV IV ONE (13:30)
[2019-11-05 14:52] LABS: ALBUMIN 2.7 g/dL (3.5-5.0); ALKALINE PHOSPHATASE 123 U/L (38-126); ANION GAP 8 (5-19); ASPARTATE AMINO TRANSFERASE 33 U/L (14-36); BILIRUBIN,DIRECT 0.2 mg/dL (0.0-0.4); BILIRUBIN,TOTAL 1.1 mg/dL (0.2-1.3); BLOOD UREA NITROGEN 37 mg/dL (7-20); CARBON DIOXIDE 24 mmol/L (22-30); CHLORIDE 104 mmol/L (98-107); GLUCOSE 307 mg/dL (75-110); POTASSIUM 3.9 mmol/L (3.6-5.0); TOTAL PROTEIN 5.3 g/dL (6.3-8.2)
[2019-11-05 15:07] LABS: CALCIUM 17.9 mg/dL (8.4-10.2)
[2019-11-05] MEDS: INSULIN LISPRO 100 UNIT/ML 3 ML VIAL SUBCUT SCH (18:08)
[2019-11-05 18:25] LABS: ANION GAP 8 (5-19); BLOOD UREA NITROGEN 40 mg/dL (7-20); CARBON DIOXIDE 25 mmol/L (22-30); CHLORIDE 103 mmol/L (98-107); GLUCOSE 379 mg/dL (75-110); POTASSIUM 3.8 mmol/L (3.6-5.0)
[2019-11-05 18:38] LABS: CALCIUM 16.8 mg/dL (8.4-10.2)
[2019-11-05] MEDS ORDERED: INSULIN GLARGINE,HUM.REC.ANLOG 1,000 UNIT/10 ML VIAL SUBCUT SCH (22:00)
[2019-11-05] MEDS ORDERED: ACETAMINOPHEN 325 MG SUPP.RECT PR ONE ×2 (23:32→23:40)
[2019-11-06] MEDS: NORMAL SALINE 1000 ML 1,000 ML IV PRN ×2 (03:35→12:46)
[2019-11-06] MEDS: INSULIN LISPRO 100 UNIT/ML 3 ML VIAL SUBCUT SCH ×2 (03:35→17:43)
[2019-11-06] MEDS: DILTIAZEM HCL/D5W 125 MG/125 ML RTUINJ IV PRN ×2 (03:36→17:43)
[2019-11-06] MEDS ORDERED: INSULIN GLARGINE,HUM.REC.ANLOG 1,000 UNIT/10 ML VIAL SUBCUT SCH ×2 (06:00→10:00)
[2019-11-06] MEDS: HEPARIN SOD (PORCINE) 5,000 UNIT/ML 1 ML VIAL SUBCUT SCH ×3 (06:24→23:06)
[2019-11-06] MEDS ORDERED: INSULIN REG, HUMAN 100 UNIT/ML 3 ML VIAL (PYX) ONE (06:40)
[2019-11-06] MEDS: INSULIN REG, HUMAN 100 UNIT/ML 3 ML VIAL (PYX) SUBCUT SCH ×4 (06:49→23:59)
[2019-11-06 06:55] LABS: HEMATOCRIT 34.7 % (36.0-47.0); HEMOGLOBIN 11.6 g/dL (12.0-15.5); MEAN CORPUSCULAR HGB CONC 33.4 g/dL (32.0-36.0); MEAN CORPUSCULAR VOLUME 84 fl (80-97); RED BLOOD COUNT 4.14 10^6/uL (3.72-5.28); RED CELL DISTRIBUTION WIDTH 16.6 % (11.5-14.0); WHITE BLOOD COUNT 12.2 10^3/uL (4.0-10.5)
[2019-11-06 07:13] LABS: PLATELET COUNT 80 10^3/uL (150-450)
[2019-11-06 07:19] LABS: ANION GAP 6 (5-19); BLOOD UREA NITROGEN 39 mg/dL (7-20); CARBON DIOXIDE 27 mmol/L (22-30); CHLORIDE 108 mmol/L (98-107); GLUCOSE 372 mg/dL (75-110); PHOSPHORUS 2.3 mg/dL (2.5-4.5); POTASSIUM 3.4 mmol/L (3.6-5.0)
[2019-11-06 07:32] LABS: CALCIUM 14.4 mg/dL (8.4-10.2)
[2019-11-06] MEDS ORDERED: METOPROLOL TARTRATE PF/INJ 5 MG/5 ML SDV IV PRN (08:01)
[2019-11-06] MEDS ORDERED: KETOROLAC TROMETHAMINE INJ/PF 30 MG/1 ML SDV ONE (08:38)
[2019-11-06] MEDS ORDERED: FUROSEMIDE INJ/PF 40 MG/4 ML SDV IV ONE (08:43)
[2019-11-06] MEDS ORDERED: KETOROLAC TROMETHAMINE INJ/PF 30 MG/1 ML SDV IV ONE (08:45)
[2019-11-06] MEDS ORDERED: VANCOMYCIN HCL INJ 1000 MG VIAL IV SCH (08:45)
[2019-11-06] MEDS ORDERED: FUROSEMIDE INJ/PF 40 MG/4 ML SDV ONE (08:45)
--- NOTE | 2019-11-06 08:50 | RADIOLOGY REPORT (SQ) ---
EXAM DESCRIPTION: CHEST SINGLE VIEW IMAGES COMPLETED DATE/TIME: 11/06/2019 8:30 am REASON FOR STUDY: hypoxia COMPARISON: AP view of the chest from 11/05/2019. EXAM PARAMETERS: NUMBER OF VIEWS: One view. TECHNIQUE: An AP view of the chest was obtained. RADIATION DOSE: NA LIMITATIONS: None. FINDINGS: LUNGS AND PLEURA: Unchanged radiographic appearance of the lungs and pleura. MEDIASTINUM AND HILAR STRUCTURES: Stable mediastinal and hilar contours. HEART AND VASCULAR STRUCTURES: Stable enlarged cardiac silhouette. BONES: No acute findings. HARDWARE: None in the chest. OTHER: No other finding. IMPRESSION: Unchanged radiographic appearance of the chest. TECHNICAL DOCUMENTATION: JOB ID: [id number] 2010 [employer]- All Rights Reserved Reading location - IP/workstation name: [email or web address]
--- NOTE | 2019-11-06 09:17 | XCELERA REPORT ---
[address] [address] Transthoracic Echocardiogram Report Name: MELISSA SAM Age: 64 yrs Gender: Female : 1955 Patient Status: Inpatient Patient Location: [address] [place] [address] Study Date: 11/05/2019 01:16 PM Height: 68 in Weight: 190 lb BSA: 2.0 m2 Procedure: A complete two-dimensional transthoracic echocardiogram was performed (2D, M-mode, spectral and color flow Doppler). Study Quality: Fair. The study was technically limited with all images being suboptimal in quality. The patient was in sinus tachycardia during the study. Reason For Study: cardiomegaly. Cardiomyopathy? Ordering Physician: IDALIA WADE Performed By: Adenike Rodriguez Interpretation Summary The patient was in sinus tachycardia during the study. Cannot comment on MR, doppler interrogation of the valve was suboptimal. The left ventricle is normal in size, thickness and function. Left ventricular systolic function is normal. The Ejection Fraction estimate is 60-65%. The left ventricle is hyperdynamic. Doppler measurements suggest impaired left ventricular relaxation, which is associated with grade I/IV or mild diastolic dysfunction. Trace TR. Pulmonic and mitral valves not well visualized. No prior studies for comparison. MMode/2D Measurements & Calculations RVDd: 2.7 cm LVIDd: 5.7 cm FS: 31.1 % Ao root diam: 2.6 cm IVSd: 1.0 cm LVIDs: 3.9 cm EDV(Teich): 159.6 ml Ao root area: 5.5 cm2 LVPWd: 1.1 cm ESV(Teich): 66.9 ml EF(Teich): 58.1 % Doppler Measurements & Calculations MV E max fortunato: MV dec slope: Ao V2 max: LV V1 max P.4 cm/sec 571.6 cm/sec2 181.2 cm/sec 4.7 mmHg MV A max fortunato: MV dec time: 0.17 secAo max PG: LV V1 max: 141.0 cm/sec 13.1 mmHg 108.3 cm/sec MV E/A: 0.67 PA V2 max: TR max fortunato: 126.1 cm/sec 262.9 cm/sec PA max P.4 mmHg TR max P.6 mmHg Left Ventricle The left ventricle is normal in size, thickness and function. Left ventricular systolic function is normal. The Ejection Fraction estimate is 60-65%. The left ventricle is hyperdynamic. Doppler measurements suggest impaired left ventricular relaxation, which is associated with grade I/IV or mild diastolic dysfunction. Right Ventricle The right ventricle is normal in size, thickness and function. The right ventricular systolic function is normal. Atria The right atrium is normal in size. The left atrium is mildly dilated. The interatrial septum is intact with no evidence for an atrial septal defect. Mitral Valve The mitral valve is not well visualized. Cannot comment on MR, doppler interrogation of the valve was suboptimal. Aortic Valve The aortic valve is normal in structure and functions normally. There is no aortic valve stenosis. No aortic regurgitation is present. Tricuspid Valve The tricuspid valve is not well visualized secondary to technical limitations. There is a trace or physiologic amount of tricuspid regurgitation. Pulmonic Valve The pulmonic valve is not well visualized. Effusions There is no pericardial effusion. There is no pleural effusion. : IDALIA WADE Antonio
[2019-11-06] MEDS: INSULIN GLARGINE,HUM.REC.ANLOG 1,000 UNIT/10 ML VIAL SUBCUT SCH ×2 (09:20→17:48)
[2019-11-06] MEDS ORDERED: VANCOMYCIN HCL 750 MG in DEXTROSE 5%-WATER 250 ML IV SCH (10:00)
--- NOTE | 2019-11-06 10:40 | PDOC CONSULTATION ---
Consultation Consult Date: 11/06/19 Attending physician:: IDALIA WADE Provider Consulted: KARON GALVAN Consult reason:: A-fib History of Present Illness Admission Date/PCP: 11/05/19 00:00 INES HUNT MD History of Present Illness: Please note that the patient is unable to give any history as she does not respond to verbal commands or nonpainful stimuli. All the history is obtained from chart review. She is a 64 year old female with a history of DM, HTN, COPD who presented to our emergency department for nausea, vomiting, diarrhea, weakness, confusion for at least 5 days. The patient's daughter apparently told nursing staff the patient is not ever confused so this is very different for her. During her evaluation she was noted to be extremely hypercalcemic and with acute kidney injury. Since admission she had been fluid resuscitated and developed rapid atrial fibrillation reason why she was begun on a diltiazem drip. She is currently in sinus tachycardia on maximum doses of diltiazem infusion. She is obtunded and not able to answer any questions although she grimaces to the touch. She is also followed by nephrology. Physical exam on 11/06/2019: GENERAL: Disheveled. Unresponsive to verbal commands or nonpainful stimuli. HEENT: Normocephalic, atraumatic. Pupils equal. Sclerae anicteric. Oropharynx is dry. NECK: No JVD. No carotid bruits. LUNGS: Clear to auscultation bilaterally. Normal respiratory effort without the use of accessory muscles or intercostal retractions. CARDIOVASCULAR: Regular rate and rhythm, tachycardic, normal S1 and S2 without murmurs, rubs, or gallops. PMI not displaced. ABDOMEN: No masses or tenderness to palpation. No bruit. No splenomegaly or hepatomegaly. No abdominal aorta bruit noted. EXTREMITIES: No edema, no cyanosis, no clubbing. +2 pulses femoral and pedal pulses bilaterally. SKIN: No lesions or rashes. MUSCULOSKELETAL: No chest tenderness to palpation. NEUROLOGIC: Nonfocal. No gross sensory or motor deficits bilateral upper or lower extremities. Past Medical History Cardiac Medical History: Reports: Hypertension Denies: Coronary Artery Disease, Myocardial Infarction, Hyperlipidema Pulmonary Medical History: Reports: Chronic Obstructive Pulmonary Disease (COPD) Denies: Asthma, Pneumonia EENT Medical History: Denies: Cataracts, Ears - Hearing aids Neurological Medical History: Denies: Hemorrhagic CVA, Ischemic CVA, Seizures Endocrine Medical History: Reports: Diabetes Mellitus Type 2 Denies: Diabetes Mellitus Type 1, Hyperthyroidism, Hypothyroidism Renal/ Medical History: Denies: Chronic Kidney Disease, Nephrolithiasis Malignancy Medical History: Reports: None GI Medical History: Denies: Cirrhosis, Hepatitis Musculoskeltal Medical History: Denies: Arthritis, Fibromyalgia Skin Medical History: Denies: Eczema, Psoriasis Psychiatric Medical History: Reports: Depression, Tobacco Dependency Denies: Alcohol Dependency, Substance Abuse Traumatic Medical History: Reports: None Hematology: Denies: Anemia, Bleeding Tendencies Infectious Medical History: Reports: None Past Surgical History Past Surgical History: Reports: Cholecystectomy, Hysterectomy Social History Lives with: Family, Spouse/Significant other Smoking Status: Current Every Day Smoker Electronic Cigarette use?: No Frequency of Alcohol Use: None Hx Recreational Drug Use: No Drugs: None Hx Prescription Drug Abuse: No - Advance Directive Resuscitation Status: Full Code Family History Family History: Reviewed & Not Pertinent Parental Family History Reviewed: Yes Children Family History Reviewed: Yes Sibling(s) Family History Reviewed.: Yes Medication/Allergy Home Medications: Amlodipine Besylate/Benazepril [Amlodipine-Benazepril 10-40 mg] 1 cap PO QPM 11/05/19 Gabapentin [Neurontin] 800 mg PO Q8 11/05/19 Hydrocodone/Acetaminophen [[place] 10-325 mg Tablet] 2 tab PO Q8 11/05/19 Lorazepam [Ativan 1 mg Tablet] 2 mg PO Q6HP PRN 11/05/19 Sulfamethoxazole/Trimethoprim [Bactrim Ds Tablet] 1 tab PO BID 11/05/19 Allergies/Adverse Reactions: No Known Allergies Allergy (Unverified 11/05/19 03:41) Physical Exam Vital Signs: Temp Pulse Resp BP Pulse Ox 100.7 F H 107 H 22 H 129/61 H 96 11/06/19 08:04 11/06/19 09:31 11/06/19 09:31 11/06/19 08:04 11/06/19 09:31 Intake & Output 11/05/19 11/06/19 11/07/19 06:59 06:59 06:59 Intake Total 2018 76 Output Total 5034 Balance 2018 Weight 86.4 kg 85.6 kg Results Laboratory Results: 11/06/19 05:53 11/06/19 05:53 11/05/19 11/05/19 11/05/19 10:00 11:50 14:21 WBC RBC Hgb Hct MCV MCH MCHC RDW Plt Count Sodium 134.7 L 135.8 L Potassium 3.8 3.9 Chloride 105 104 Carbon Dioxide 25 24 Anion Gap 5 8 BUN 38 H 37 H Creatinine 1.41 H 1.41 H Est GFR ( Amer) 45 L 45 L Glucose 230 H 307 H Lactic Acid Calcium 18.2 H* 17.9 H* Phosphorus Magnesium 1.9 Total Bilirubin 1.1 AST 33 Alkaline Phosphatase 123 Ammonia 10.4 Total Protein 5.3 L Albumin 2.7 L 11/05/19 11/05/19 11/06/19 14:21 17:48 05:53 WBC 12.2 H RBC 4.14 Hgb 11.6 L Hct 34.7 L MCV 84 MCH 28.0 MCHC 33.4 RDW 16.6 H Plt Count 80 L Sodium 136.3 L Potassium 3.8 Chloride 103 Carbon Dioxide 25 Anion Gap 8 BUN 40 H Creatinine 1.41 H Est GFR ( Amer) 45 L Glucose 379 H Lactic Acid 1.1 Calcium 16.8 H* Phosphorus Magnesium 1.7 Total Bilirubin AST Alkaline Phosphatase Ammonia Total Protein Albumin 11/06/19 05:53 WBC RBC Hgb Hct MCV MCH MCHC RDW Plt Count Sodium 140.7 Potassium 3.4 L Chloride 108 H Carbon Dioxide 27 Anion Gap 6 BUN 39 H Creatinine 1.18 Est GFR ( Amer) 56 L Glucose 372 H Lactic Acid Calcium 14.4 H* Phosphorus 2.3 L Magnesium Total Bilirubin AST Alkaline Phosphatase Ammonia Total Protein Albumin 11/05/19 08:59 NT-Pro-B Natriuret Pep 2270 H Impressions: Head CT 11/04/19 00:00 IMPRESSION: No acute intracranial hemorrhage or mass effect. Mild chronic microvascular ischemic change with remote lacunar infarct about the anterior aspect of the left lentiform nucleus extending into the myles radiata. Widespread lucent lesions throughout the calvarium and skull base, concerning for either metastatic disease or multiple myeloma. Correlate. TECHNICAL DOCUMENTATION: Quality ID # [id number]: Final reports with documentation of one or more dose reduction techniques (e.g., Automated exposure control, adjustment of the mA and/or kV according to patient size, use of iterative reconstruction technique) copyright 2011 [employer]- All Rights Reserved Chest X-Ray 11/06/19 08:04 IMPRESSION: Unchanged radiographic appearance of the chest. 11/06/19 05:53 11/06/19 05:53 MCV 84 fl (80-97) 11/06/19 05:53 MCH 28.0 pg (27.0-33.4) 11/06/19 05:53 MCHC 33.4 g/dL (32.0-36.0) 11/06/19 05:53 RDW 16.6 % (11.5-14.0) H 11/06/19 05:53 Seg Neutrophils % Not Reportable 11/04/19 20:07 Carbonic Acid 1.21 mmol/L (1.05-1.35) 11/05/19 09:25 HCO3/H2CO3 Ratio 21:1 11/05/19 09:25 ABG pH 7.42 (7.35-7.45) 11/05/19 09:25 ABG pCO2 40.3 mmHg (35-45) 11/05/19 09:25 ABG pO2 173.2 mmHg (80-100) H 11/05/19 09:25 ABG HCO3 25.7 mmol/L (20-24) H 11/05/19 09:25 ABG O2 Saturation 99.2 % (94-98) H 11/05/19 09:25 ABG Base Excess 1.2 mmol/L 11/05/19 09:25 FiO2 15L 11/05/19 09:25 Chloride 108 mmol/L (98-107) H 11/06/19 05:53 Carbon Dioxide 27 mmol/L (22-30) 11/06/19 05:53 Anion Gap 6 (5-19) 11/06/19 05:53 Est GFR ( Amer) 56 (>60) L 11/06/19 05:53 Est GFR (Non-Af Amer) Cancelled 11/04/19 20:07 Glucose 372 mg/dL (75-110) H 11/06/19 05:53 Lactic Acid 1.1 mmol/L (0.7-2.1) 11/05/19 14:21 Calcium 14.4 mg/dL (8.4-10.2) H* 11/06/19 05:53 Phosphorus 2.3 mg/dL (2.5-4.5) L 11/06/19 05:53 Magnesium 1.7 mg/dL (1.6-2.3) 11/05/19 17:48 Total Bilirubin 1.1 mg/dL (0.2-1.3) 11/05/19 14:21 AST 33 U/L (14-36) 11/05/19 14:21 Alkaline Phosphatase 123 U/L (38-126) 11/05/19 14:21 Ammonia 10.4 umol/L (9-33) 11/05/19 10:00 Total Protein 5.3 g/dL (6.3-8.2) L 11/05/19 14:21 Albumin 2.7 g/dL (3.5-5.0) L 11/05/19 14:21 TSH 0.67 uIU/mL (0.47-4.68) 11/04/19 21:27 Free T4 1.07 ng/dL (0.78-2.19) 11/05/19 08:59 Free T3 pg/mL 1.99 pg/mL (2.77-5.27) L 11/04/19 21:27 PTH Intact 9.9 pg/mL (10.0-65.0) L 11/05/19 08:59 Urine Color YELLOW 11/05/19 02:05 Urine Appearance SLIGHTLY-CLOUDY 11/05/19 02:05 Urine pH 5.0 (5.0-9.0) 11/05/19 02:05 Ur Specific [place] 1.014 11/05/19 02:05 Urine Protein 30 mg/dL (NEGATIVE) H 11/05/19 02:05 Urine Glucose (UA) >=500 mg/dL (NEGATIVE) H 11/05/19 02:05 Urine Ketones NEGATIVE mg/dL (NEGATIVE) 11/05/19 02:05 Urine Blood SMALL (NEGATIVE) H 11/05/19 02:05 Urine RBC (Auto) 0 /HPF 11/05/19 02:05 11/05/19 08:59 NT-Pro-B Natriuret Pep 2270 H Current Medication List Generic Name Dose Route Start Last Admin Trade Name Freq PRN Reason Stop Dose Admin Acetaminophen 650 mg 11/05/19 23:46 Tylenol 325 Mg Tablet PO 12/05/19 23:45 Q4HP PRN FOR PAIN OR TEMP Acetaminophen 650 mg 11/05/19 23:47 Tylenol 650 Mg Supp VT 12/05/19 23:46 Q4HP PRN FOR PAIN OR TEMP Dextrose 12.5 gm 11/05/19 00:41 Dextrose Inj 50% Syringe (25 Gm/50 Ml) IV 12/05/19 00:40 PRN PRN FOR BG 50-69 IN ALERT PATIENT Protocol Dextrose 25 gm 11/05/19 00:41 Dextrose Inj 50% Syringe (25 Gm/50 Ml) IV 12/05/19 00:40 PRN PRN PER PROTOCOL Protocol Glucagon 1 mg 11/05/19 00:41 Glucagen Inj 1 Mg Vial IM 12/05/19 00:40 PRN PRN Evaluate for BG < 70 Protocol Glucose 15 gm 11/05/19 00:41 Glutose 40% Gel 15 Gm Tube PO 12/05/19 00:40 PRN PRN FOR BG 50-69 IN ALERT PATIENT Protocol Glucose 30 gm 11/05/19 00:41 Glutose 40% Gel 15 Gm Tube PO 12/05/19 00:40 PRN PRN FOR BG < 50 IN ALERT PATIENT Protocol Guaifenesin 200 mg 11/05/19 00:40 Robitussin Syrup 200 Mg/10 Ml Ud Cup PO 12/05/19 00:39 Q4HP PRN COUGH Heparin Sodium (Porcine) 5,000 unit 11/05/19 06:00 11/06/19 06:24 Heparin Inj 5,000 Units/Ml 1 Ml Vial SUBCUT 12/05/19 05:59 Not Given Q8 MONTSE Hydralazine HCl 20 mg 11/05/19 00:40 Apresoline Inj/Pf 20 Mg/1 Ml Sdv IV 12/05/19 00:39 Q4HP PRN Give For Sbp > 160 / Dbp > 100 Diltiazem HCl 125 mg in 125 mls @ 0 mls/hr 11/05/19 10:37 11/06/19 03:36 Cardizem Rtu Inj 125 Mg-D5w 125 Ml Premix IV 12/05/19 10:36 5 mls/hr CONTINUOUS PRN 5 mls/hr THIS MED IS NOT "PRN" Administration Protocol Titrate Sodium Chloride 1,000 mls @ 150 mls/hr 11/05/19 12:58 11/06/19 03:35 Nacl 0.9% 1000 Ml Iv Soln IV 12/05/19 08:40 150 mls/hr CONTINUOUS PRN Administration THIS MED IS NOT "PRN" Potassium Chloride/Water 20 meq in 50 mls @ 25 mls/hr 11/06/19 09:00 Potassium Chloride Thierry 20 Meq/50 Ml IV 11/06/19 12:59 Q2H MONTSE Vancomycin HCl 750 mg/ 250 mls @ 166.667 mls/hr 11/06/19 10:00 11/06/19 09:22 Dextrose IV 11/13/19 09:59 166.67 mls/hr Q12 MONTSE 166.67 mls/hr Administration Insulin Glargine 20 unit 11/06/19 08:10 11/06/19 09:20 Lantus Insulin 100 Unit/1 Ml 10 Ml SUBCUT 12/06/19 08:09 20 unit Q12A MONTSE Administration Insulin Human Regular 0 - 30 unit 11/06/19 06:00 11/06/19 06:49 Humulin R (Pyxis) Insulin 100 Unit/Ml 3ml SUBCUT 12/06/19 05:59 25 unit Q6 MONTSE Administration Protocol Levalbuterol HCl 0.63 mg 11/05/19 00:31 Xopenex Neb 0.63 Mg/3 Ml Ampul NEB 12/05/19 00:30 RTQ2HP PRN SHORTNESS OF BREATH Metoprolol Tartrate 5 mg 11/06/19 08:01 Lopressor Inj/Pf 5 Mg/5 Ml Sdv IV 12/06/19 08:00 Q6HP PRN GIVE FOR HR > [] Nicotine 1 each 11/05/19 00:40 Nicoderm 21 Mg/24 Hr Transderm Patch TD 12/05/19 00:39 DAILYP PRN WITHDRAWAL SYMPTOMS Piperacillin Sod/Tazobactam Sod 3.375 gm 11/06/19 08:45 Zosyn Inj 3.375 Gm Vial IV 11/13/19 08:44 Q8 MONTSE Sodium Chloride 2.5 ml 11/05/19 06:00 11/05/19 23:38 Saline Flush 2.5 Ml Monoject Prefil Syrin IV 12/05/19 05:59 2.5 ml Q8 MONTSE Administration Discontinued Medications Generic Name Dose Route Start Last Admin Trade Name Freq PRN Reason Stop Dose Admin Acetaminophen 650 mg 11/05/19 00:40 Tylenol 325 Mg Tablet PO 07/18/20 00:39 Q4HP PRN For headache, pain or fever Acetaminophen 650 mg 11/05/19 00:40 Tylenol 650 Mg Supp VT 12/05/19 00:39 Q4HP PRN For headache, pain or fever Acetaminophen Confirm 11/05/19 23:32 11/05/19 23:39 Tylenol 325 Mg Supp Administered 11/05/19 23:33 325 mg Dose Administration 325 mg VT .STK-MED ONE Acetaminophen Confirm 11/05/19 23:40 11/05/19 23:39 Tylenol 325 Mg Supp Administered 11/05/19 23:41 325 mg Dose Administration 325 mg VT .STK-MED ONE Al Hydrox/Mg Hydrox/Simethicone 30 ml 11/05/19 00:31 Maalox Plus Susp 30 Udcup PO 12/05/19 00:30 Q6HP PRN HEARTBURN Calcitonin 300 unit 11/05/19 08:15 11/05/19 08:50 Miacalcin Inj 200 Unit/1 Ml 2 Ml Vial IM 11/05/19 08:16 300 unit STAT ONE Administration Calcitonin 400 unit 11/05/19 18:00 11/05/19 18:04 Miacalcin Inj 200 Unit/1 Ml 2 Ml Vial IM 11/05/19 18:01 400 unit ROCAEL ONE Administration Dexamethasone Sodium Phosphate 10 mg 11/05/19 10:00 11/05/19 10:01 Decadron Inj 10 Mg/1 Ml Vial IV 11/05/19 10:01 10 mg NOW ONE Administration Dextrose 12.5 gm 11/04/19 22:32 Dextrose Inj 50% Syringe (25 Gm/50 Ml) IV 12/04/19 22:31 PRN PRN FOR BG 50-69 IN ALERT PATIENT Protocol Dextrose 25 gm 11/04/19 22:32 Dextrose Inj 50% Syringe (25 Gm/50 Ml) IV 12/04/19 22:31 PRN PRN PER PROTOCOL Protocol Diltiazem HCl 20 mg 11/05/19 05:30 11/05/19 05:36 Cardizem Inj 25 Mg/5 Ml Vial IV 11/05/19 05:31 20 mg NOW ONE Administration Diltiazem HCl 10 mg 11/05/19 07:00 Cardizem Inj 25 Mg/5 Ml Vial IV 11/05/19 07:01 NOW ONE Docusate Sodium 100 mg 11/05/19 10:00 11/05/19 09:12 Colace 100 Mg Capsule PO 12/05/19 09:59 Not Given BID MONTSE Furosemide 40 mg 11/05/19 13:30 11/05/19 13:26 Lasix Inj/Pf 40 Mg/4 Ml Sdv IV 11/05/19 13:31 40 mg NOW ONE Administration Furosemide 40 mg 11/06/19 08:43 11/06/19 08:50 Lasix Inj/Pf 40 Mg/4 Ml Sdv IV 11/06/19 08:44 40 mg NOW ONE Administration Furosemide Confirm 11/06/19 08:45 11/06/19 08:56 Lasix Inj/Pf 40 Mg/4 Ml Sdv Administered 11/06/19 08:46 Not Given Dose 40 mg .ROUTE .STK-MED ONE Glucagon 1 mg 11/04/19 22:32 Glucagen Inj 1 Mg Vial IM 12/04/19 22:31 PRN PRN Evaluate for BG < 70 Protocol Glucose 15 gm 11/04/19 22:32 Glutose 40% Gel 15 Gm Tube PO 12/04/19 22:31 PRN PRN FOR BG 50-69 IN ALERT PATIENT Protocol Glucose 30 gm 11/04/19 22:32 Glutose 40% Gel 15 Gm Tube PO 12/04/19 22:31 PRN PRN FOR BG < 50 IN ALERT PATIENT Protocol Sodium Chloride 1,000 mls @ 0 mls/hr 11/04/19 20:03 11/04/19 23:48 Nacl 0.9% 1000 Ml Iv Soln IV Infused X 2 BAGS PRN Infusion THIS MED IS NOT "PRN" Wide Open Insulin Human Regular 100 unit 101 mls @ 0 mls/hr 11/04/19 22:32 11/05/19 01:26 / Sodium Chloride IV 12/04/19 22:31 3.1 mls/hr CONTINUOUS PRN 3.1 mls/hr THIS MED IS NOT "PRN" Titration Protocol Titrate Potassium Chloride/Sodium Chloride 1,000 mls @ 250 mls/hr 11/05/19 00:31 11/05/19 09:13 Nacl 0.9% 1000 Ml/Kcl 20 Meq Premix Bag IV Infused CONTINUOUS PRN Infusion THIS MED IS NOT "PRN" Insulin Human Regular 100 unit 101 mls @ 0 mls/hr 11/05/19 00:41 11/05/19 08:00 / Sodium Chloride IV 12/05/19 00:40 Infused CONTINUOUS PRN Titration THIS MED IS NOT "PRN" Protocol Titrate Potassium Chloride/Water 20 meq in 50 mls @ 25 mls/hr 11/05/19 05:30 11/05/19 08:02 Potassium Chloride Thierry 20 Meq/50 Ml IV 11/05/19 07:29 Infused NOW ONE Infusion Diltiazem HCl 125 mg in 125 mls @ 0 mls/hr 11/05/19 06:57 11/05/19 10:43 Cardizem Rtu Inj 125 Mg-D5w 125 Ml Premix IV 12/05/19 06:56 Infused CONTINUOUS PRN Titration THIS MED IS NOT "PRN" Protocol Titrate Zoledronic Acid 4 mg in 100 mls @ 400 mls/hr 11/05/19 08:00 11/05/19 08:54 Zometa Rtu 4 Mg/100 Ml Infus..Btl IV 11/05/19 08:14 400 mls/hr NOW ONE Administration Sodium Chloride 1,000 mls @ 200 mls/hr 11/05/19 08:41 11/05/19 13:28 Nacl 0.9% 1000 Ml Iv Soln IV 12/05/19 08:40 Infused CONTINUOUS PRN Infusion THIS MED IS NOT "PRN" Sodium Chloride 1,000 mls @ 0 mls/hr 11/05/19 08:41 11/05/19 09:55 Nacl 0.9% 1000 Ml Iv Soln IV 11/05/19 08:42 Infused BOLUS ONE Infusion Wide Open Diltiazem HCl Confirm 11/05/19 09:33 11/05/19 10:03 Cardizem Rtu Inj 125 Mg-D5w 125 Ml Premix Administered 11/05/19 09:34 Not Given Dose 125 mg in 125 mls @ ud IV .STK-MED ONE Insulin Glargine 10 unit 11/05/19 22:00 11/05/19 23:35 Lantus Insulin 100 Unit/1 Ml 10 Ml SUBCUT 12/05/19 21:59 10 unit Q12 MONTSE Administration Insulin Glargine 20 unit 11/06/19 06:00 Lantus Insulin 100 Unit/1 Ml 10 Ml SUBCUT 12/06/19 05:59 Q12A MONT[facility] Insulin Glargine 20 unit 11/06/19 10:00 Lantus Insulin 100 Unit/1 Ml 10 Ml SUBCUT 12/06/19 09:59 Q12 [facility] Insulin Human Lispro 0 - 12 unit 11/05/19 18:00 11/06/19 03:35 Humalog Insulin 100 Unit/1 Ml 3 Ml Vial SUBCUT 12/05/19 17:59 10 unit Q6 [facility] Administration Protocol Insulin Human NPH 15 unit 11/05/19 09:00 11/05/19 09:27 Humulin N (Nph) Insulin 100 Unit/1 Ml 3 Ml SUBCUT 11/05/19 09:01 15 unit ROCAEL ONE Administration Insulin Human Regular Confirm 11/04/19 23:27 Humulin R (Pyxis) Insulin 100 Unit/Ml 3ml Administered 11/04/19 23:28 Dose 1 unit .ROUTE .STK-MED ONE Insulin Human Regular Confirm 11/06/19 06:40 Humulin R (Pyxis) Insulin 100 Unit/Ml 3ml Administered 11/06/19 06:41 Dose 1 unit .ROUTE .STK-MED ONE Ketorolac Tromethamine 15 mg 11/06/19 08:45 11/06/19 08:35 Toradol Inj/Pf 30 Mg/1 Ml Sdv IV 11/06/19 08:46 15 mg NOW ONE Administration Ketorolac Tromethamine Confirm 11/06/19 08:38 11/06/19 08:53 Toradol Inj/Pf 30 Mg/1 Ml Sdv Administered 11/06/19 08:39 Not Given Dose 30 mg .ROUTE .STK-MED ONE Lorazepam 1 mg 11/05/19 00:40 Ativan Inj 2 Mg/1 Ml Vial IV 11/12/19 00:39 Q4HP PRN ANXIETY/AGITATION Magnesium Hydroxide 30 ml 11/05/19 00:31 Milk Of Magnesia 30 Ml Udcup PO 12/05/19 00:30 HSP PRN FOR CONSTIPATION Metoclopramide HCl 5 mg 11/05/19 08:00 11/05/19 09:21 Reglan Inj/Pf 10 Mg/2 Ml Sdv IV 12/05/19 07:59 Not Given ACHS [facility] Pantoprazole Sodium 40 mg 11/05/19 10:00 Protonix Iv Inj 40 Mg Vial IV 06/25/20 09:59 Q12 [facility] Promethazine HCl 12.5 mg 11/05/19 00:31 Phenergan Inj 25 Mg/1 Ml Vial IV 12/05/19 00:30 Q4HP PRN FOR NAUSEA/VOMITING Assessment & Plan - Diagnosis (1) Atrial fibrillation with RVR Is this a current diagnosis for this admission?: Yes Plan: Likely secondary to her underlying illness, multiple electrolyte abnormalities. Fortunately enough she spontaneously converted to sinus tachycardia. Her echocardiogram yesterday demonstrated a normal left ventricular systolic function among other findings however there was no significant pathology that could explain her atrial fibrillation. Recommendations: -Agree with withholding anticoagulation given her thrombocytopenia of unclear etiology. -Given her hypotension and the presence of sinus rhythm now may start weaning off diltiazem drip. -Continue to treat underlying medical illness as well as replacing electrolytes. -May consider amiodarone IV load followed by p.o. amiodarone if the atrial fibrillation recurs. -We will sign off the case for now, please reconsult as deemed necessary. (2) Acute kidney injury (nontraumatic) Is this a current diagnosis for this admission?: Yes Plan: Now resolving. She has been followed by nephrology. Further recommendations per nephrology and primary team. (3) Acute metabolic encephalopathy Is this a current diagnosis for this admission?: Yes Plan: Further treatment recommendations per primary team.
[2019-11-06] MEDS: POTASSI CL 20 MEQ/50 ML RIDER 20 MEQ/50 ML RTUPB IV SCH ×2 (11:30→12:48)
[2019-11-06] MEDS: ACETAMINOPHEN 650 MG SUPP.RECT PR PRN ×3 (11:31→23:58)
[2019-11-06] MEDS: PIPERACILLIN/TAZOBACTAM 3.375 GM VIAL IV SCH ×2 (11:32→17:44)
[2019-11-06] MEDS ORDERED: CALCITONIN,SALMON,SYNTHETIC 400 UNIT/2 ML VIAL IM ONE (12:00)
--- NOTE | 2019-11-06 12:46 | CRITICAL CARE ADMISSION REPORT ---
HPI Date:: 11/06/19 Time:: 12:00 Reason for ICU Reason:: Septic, obtunded, intubation risk, hypocalcemia. Admission Date/Time & PCP: Admission Date/Time: 11/05/19 00:00 Primary Care Provider: INES HUNT MD HPI: This patient is a 64 yo woman with afib and DM-II who has been septic since admission. Initially treated with fluids and then antibiotics. She was, and is, hypercalcemic to 14.1 further confusing the picture. She has a 1cmm X 1cmm perirectal decubitus with a significant inturation and purpulish discoloration around this site about 10cm in diameter. This was unroofed and cultured draining several cc of anearobic smelling pus. Dr. Mario is consulted surgically. She is febrile to 103.4, tachycardic to 125 on a cardizem drip. BG is 325 and on lantus. Her obtundation is such that she is protecting her airway but is both an aspiration risk and an intubation risk. The decubitus likely needs surgical intervention at least leyla debride. Less likely this could be a perirectal abcess for which the OR may be indicated. She has multiple abnormalities, least of all is her hypercalcemia of 14.1 History obtained from:: Dr. Morgan. Chart review. - Diagnosis/Plan (1) Sepsis Qualifiers: Sepsis acute organ dysfunction status: with acute organ dysfunction Severe sepsis acute organ dysfunction type: encephalopathy Severe sepsis shock status: without septic shock Is this a current diagnosis for this admission?: Yes Plan: Continue IVF and antibiotics. Dr. Mario to see in surgical consult. May need OR. (2) Decubitus skin ulcer Qualifiers: Pressure injury location: buttock Pressure injury stage: unspecified pressure injury stage Laterality: left Qualified Code(s): L89.329 - Pressure ulcer of left buttock, unspecified stage Is this a current diagnosis for this admission?: Yes Plan: This has been cultured and has been opened up somewhat draining foul smelling anaerobic pus. Needs further work perhaps in OR. (3) Altered mental status Qualifiers: Altered mental status type: delirium Qualified Code(s): R41.0 - Disorientation, unspecified Is this a current diagnosis for this admission?: Yes Plan: This is from sepsis and hypercalcemia. (4) Atrial fibrillation with RVR Is this a current diagnosis for this admission?: Yes Plan: She is on cardizem but I do not believe this will come under control until we get her sepsis under control. (5) Diabetes mellitus type 2 in nonobese Is this a current diagnosis for this admission?: Yes Plan: This is making the severity of the decubitus perhaps worse than it seems. (6) Fever Qualifiers: Fever type: due to other condition Qualified Code(s): R50.81 - Fever presenting with conditions classified elsewhere Is this a current diagnosis for this admission?: Yes Plan: This is part of the septic syndrome. (7) Leukocytosis Qualifiers: Leukocytosis type: unspecified Qualified Code(s): D72.829 - Elevated white blood cell count, unspecified Is this a current diagnosis for this admission?: Yes Plan: Again part of the septic picture. Plan Summary: She is best served in the ICU with so many dysfunctions and possible need for intubation. Past Medical History Cardiac Medical History: Reports: Hypertension Denies: Coronary Artery Disease, Myocardial Infarction, Hyperlipidema Pulmonary Medical History: Reports: Chronic Obstructive Pulmonary Disease (COPD) Denies: Asthma, Pneumonia EENT Medical History: Denies: Cataracts, Ears - Hearing aids Neurological Medical History: Denies: Hemorrhagic CVA, Ischemic CVA, Seizures Endocrine Medical History: Reports: Diabetes Mellitus Type 2 Denies: Diabetes Mellitus Type 1, Hyperthyroidism, Hypothyroidism Renal/ Medical History: Denies: Chronic Kidney Disease, Nephrolithiasis Malignancy Medical History: Reports: None GI Medical History: Denies: Cirrhosis, Hepatitis Musculoskeltal Medical History: Denies: Arthritis, Fibromyalgia Skin Medical History: Denies: Eczema, Psoriasis Psychiatric Medical History: Reports: Depression, Tobacco Dependency Denies: Alcohol Dependency, Substance Abuse Traumatic Medical History: Reports: None Hematology: Denies: Anemia, Bleeding Tendencies Infectious Medical History: Reports: None Past Surgical History Past Surgical History: Reports: Cholecystectomy, Hysterectomy Social/Family History - Social History Lives with: Family, Spouse/Significant other Smoking Status: Current Every Day Smoker Frequency of Alcohol Use: None Hx Recreational Drug Use: No Drugs: None Hx Prescription Drug Abuse: No - Medication/Allergies Home Medications: Amlodipine Besylate/Benazepril [Amlodipine-Benazepril 10-40 mg] 1 cap PO QPM 11/05/19 Gabapentin [Neurontin] 800 mg PO Q8 11/05/19 Hydrocodone/Acetaminophen [[place] 10-325 mg Tablet] 2 tab PO Q8 11/05/19 Lorazepam [Ativan 1 mg Tablet] 2 mg PO Q6HP PRN 11/05/19 Sulfamethoxazole/Trimethoprim [Bactrim Ds Tablet] 1 tab PO BID 11/05/19 Allergies/Adverse Reactions: No Known Allergies Allergy (Unverified 11/05/19 03:41) Review of Systems ROS unobtainable: Due to mental status Physical Exam Vital Signs: Temp Pulse Resp BP Pulse Ox 100.7 F H 107 H 22 H 129/61 H 96 11/06/19 08:04 11/06/19 09:31 11/06/19 09:31 11/06/19 08:04 11/06/19 09:31 Intake & Output 11/05/19 11/06/19 11/07/19 06:59 06:59 06:59 Intake Total 2018 47 Output Total 5027 Balance 2019 -993 Weight 86.4 kg 85.6 kg Weight/Height Weight 85.6 kg Height 5 ft 8 in General appearance: PRESENT: disheveled, other - Obtunded Head exam: PRESENT: atraumatic, normocephalic Eye exam: PRESENT: conjunctiva pink, EOMI, PERRLA. ABSENT: scleral icterus Ear exam: PRESENT: normal external ear exam Mouth exam: PRESENT: dry mucosa Respiratory exam: PRESENT: clear to auscultation paula, decreased breath sounds. ABSENT: rales, rhonchi, wheezes Cardiovascular exam: PRESENT: irregular rhythm, tachycardia GI/Abdominal exam: PRESENT: normal bowel sounds, soft. ABSENT: distended, guarding, mass, organolmegaly, rebound, tenderness Rectal exam: PRESENT: tenderness, other - No obvious perirectal involvement Gentrourinary exam: PRESENT: indwelling catheter Extremities exam: PRESENT: other - L buttock with small 1 X 1 cm eschar unroffed in room to express several cc of anaerobic smelling pus. 10 X 10 cm area of induration. Neurological exam: PRESENT: other - Obtunded. Skin exam: PRESENT: other Laboratory/Radiographs Laboratory Results: 11/06/19 05:53 11/06/19 05:53 11/05/19 11/05/19 11/05/19 11:50 14:21 14:21 WBC RBC Hgb Hct MCV MCH MCHC RDW Plt Count Sodium 134.7 L 135.8 L Potassium 3.8 3.9 Chloride 105 104 Carbon Dioxide 25 24 Anion Gap 5 8 BUN 38 H 37 H Creatinine 1.41 H 1.41 H Est GFR ( Amer) 45 L 45 L Glucose 230 H 307 H Lactic Acid 1.1 Calcium 18.2 H* 17.9 H* Phosphorus Magnesium 1.9 Total Bilirubin 1.1 AST 33 Alkaline Phosphatase 123 Total Protein 5.3 L Albumin 2.7 L 11/05/19 11/06/19 11/06/19 17:48 05:53 05:53 WBC 12.2 H RBC 4.14 Hgb 11.6 L Hct 34.7 L MCV 84 MCH 28.0 MCHC 33.4 RDW 16.6 H Plt Count 80 L Sodium 136.3 L 140.7 Potassium 3.8 3.4 L Chloride 103 108 H Carbon Dioxide 25 27 Anion Gap 8 6 BUN 40 H 39 H Creatinine 1.41 H 1.18 Est GFR ( Amer) 45 L 56 L Glucose 379 H 372 H Lactic Acid Calcium 16.8 H* 14.4 H* Phosphorus 2.3 L Magnesium 1.7 Total Bilirubin AST Alkaline Phosphatase Total Protein Albumin 11/05/19 08:59 NT-Pro-B Natriuret Pep 2270 H Impressions: Head CT 11/04/19 00:00 IMPRESSION: No acute intracranial hemorrhage or mass effect. Mild chronic microvascular ischemic change with remote lacunar infarct about the anterior aspect of the left lentiform nucleus extending into the myles radiata. Widespread lucent lesions throughout the calvarium and skull base, concerning for either metastatic disease or multiple myeloma. Correlate. TECHNICAL DOCUMENTATION: Quality ID # 436: Final reports with documentation of one or more dose reduction techniques (e.g., Automated exposure control, adjustment of the mA and/or kV according to patient size, use of iterative reconstruction technique) copyright 2011 [employer]- All Rights Reserved Chest X-Ray 11/06/19 08:04 IMPRESSION: Unchanged radiographic appearance of the chest. All labs, radiographs, diagnostic studies and EKGs were personally reviewed: Yes In addition, reports of radiographic and diagnostic studies were read: Yes Critical Time Critical Time (minutes): 40 -: The care of a critically ill patient is dynamic. This note represents a static moment in the admission process. Orders and treatments may be given simultaneously and urgently, and time is not player services representative of the treatment process. This patient requires Critical Care secondary to life threatening organ or limb dysfunction. Without Critical Care services, the patient is at risk for increased mortality and morbidity.
[2019-11-06] MEDS ORDERED: DEXAMETHASONE SOD PHOSPHATE INJ 4 MG/1 ML VIAL IV SCH (14:00)
--- NOTE | 2019-11-06 14:04 | PDOC PROGRESS REPORT ---
Subjective Progress Note for:: 11/06/19 Reason For Visit: Patient seen today on the floor. She is very obtunded and not responsive to either oral commands or very little to painful stimuli. Discussions were done with the treating nurse Brie as well as the treating hospitalist. Labs and medications were reviewed. Current creatinine dropped to 1.1 from 1.7 on admission and her calcium is now down to 14.4, phosphorus 2.3. I am also been told that she is got foul-smelling sacral decubitus ulcer that is been referred to surgical us for further evaluation. She has been begun on IV antibiotics after cultures. She has made good urine output and is actually net negative balance. Physical Exam Vital Signs: Temp Pulse Resp BP Pulse Ox 100.4 F 99 32 H 140/64 H 96 11/06/19 12:31 11/06/19 12:14 11/06/19 12:14 11/06/19 12:00 11/06/19 12:14 Intake & Output 11/05/19 11/06/19 11/07/19 06:59 06:59 06:59 Intake Total 2018 4726 1332 Output Total 5021 Balance 2019 -349 1332 Weight 86.4 kg 85.6 kg 102 kg General appearance: PRESENT: no acute distress, disheveled Exam: She is quite obtunded and does not respond to loud oral commands. She grimaces to painful stimuli. Eye exam: PRESENT: EOMI, PERRLA. ABSENT: scleral icterus Ear exam: PRESENT: normal external ear exam Mouth exam: PRESENT: moist Neck exam: ABSENT: lymphadenopathy, meningismus, tenderness, thyromegaly, tracheal deviation Respiratory exam: PRESENT: clear to auscultation paula, decreased breath sounds. ABSENT: crackles Cardiovascular exam: PRESENT: +S1, +S2 GI/Abdominal exam: PRESENT: normal bowel sounds, soft. ABSENT: organomegaly, tenderness Extremities exam: ABSENT: pedal edema Neurological exam: PRESENT: altered. ABSENT: awake Skin exam: ABSENT: cyanosis, intact, rash Results Laboratory Results: 11/06/19 05:53 11/06/19 05:53 11/05/19 11/05/19 11/05/19 14:21 14:21 17:48 WBC RBC Hgb Hct MCV MCH MCHC RDW Plt Count Sodium 135.8 L 136.3 L Potassium 3.9 3.8 Chloride 104 103 Carbon Dioxide 24 25 Anion Gap 8 8 BUN 37 H 40 H Creatinine 1.41 H 1.41 H Est GFR ( Amer) 45 L 45 L Glucose 307 H 379 H Lactic Acid 1.1 Calcium 17.9 H* 16.8 H* Phosphorus Magnesium 1.7 Total Bilirubin 1.1 AST 33 Alkaline Phosphatase 123 Total Protein 5.3 L Albumin 2.7 L 11/06/19 11/06/19 05:53 05:53 WBC 12.2 H RBC 4.14 Hgb 11.6 L Hct 34.7 L MCV 84 MCH 28.0 MCHC 33.4 RDW 16.6 H Plt Count 80 L Sodium 140.7 Potassium 3.4 L Chloride 108 H Carbon Dioxide 27 Anion Gap 6 BUN 39 H Creatinine 1.18 Est GFR ( Amer) 56 L Glucose 372 H Lactic Acid Calcium 14.4 H* Phosphorus 2.3 L Magnesium Total Bilirubin AST Alkaline Phosphatase Total Protein Albumin 11/05/19 08:59 NT-Pro-B Natriuret Pep 2270 H Impressions: Head CT 11/04/19 00:00 IMPRESSION: No acute intracranial hemorrhage or mass effect. Mild chronic microvascular ischemic change with remote lacunar infarct about the anterior aspect of the left lentiform nucleus extending into the myles radiata. Widespread lucent lesions throughout the calvarium and skull base, concerning for either metastatic disease or multiple myeloma. Correlate. TECHNICAL DOCUMENTATION: Quality ID # 436: Final reports with documentation of one or more dose reduction techniques (e.g., Automated exposure control, adjustment of the mA and/or kV according to patient size, use of iterative reconstruction technique) copyright 2011 [employer]- All Rights Reserved Chest X-Ray 11/06/19 08:04 IMPRESSION: Unchanged radiographic appearance of the chest. Assessment & Plan - Diagnosis (1) Hypercalcemia Is this a current diagnosis for this admission?: Yes Plan: Current calcium is now down to 14.4 from yesterday of close to 19. She is making good amounts of urine output as of MELA has resolved. Please monitor for her magnesium and phosphorus. I note that the phosphorus is dropped down to 2.3 and she might need that replaced. Suggest frequent phosphorus monitoring. (2) Acute kidney injury (nontraumatic) Is this a current diagnosis for this admission?: Yes Plan: Doing nicely. Nonoliguric. Advised cutting down the fluids to 150/hour. (3) Acute metabolic encephalopathy Is this a current diagnosis for this admission?: Yes Plan: Patient still quite obtunded and hardly responding to even painful stimuli. Discussed various differentials with hospitalist. Monitor for respiratory failure. (4) Diabetes mellitus type 2 in nonobese Is this a current diagnosis for this admission?: Yes Plan: Being managed by hospitalist (5) Tobacco use disorder, severe, dependence Is this a current diagnosis for this admission?: Yes Plan: Monitor later for nicotine withdrawal
[2019-11-06 14:12] LABS: VITAMIN D 1,25 DIHYDROXY 7.2 pg/mL (19.9-79.3)
--- NOTE | 2019-11-06 15:07 | Progress Note ---
Provider Note Provider Note: Patient remains obtunded today despite improvement in her calcium level to 14.4. She has been receiving a lot of IV fluids but she has diuresed very effectively. She is now spiking high fevers. We discovered the patient has a significantly indurated region in her decubitus region with significant fluctuance and purulent drainage. Persistent metabolic encephalopathy may be complicated by septic picture. Chest x-ray is, urinalysis were both negative for any infection. Blood cultures obtained yesterday also negative at 24 hours. I started patient on vancomycin and Zosyn. Also consulted surgery for incision and debridement. Ordered 1 dose of calcitonin today. Patient has received zoledronate yesterday so I expect calcium will continue to drop appreciably. Diagnostic labs including SPEP, UPEP, urine free light chains, PTH related peptide, vitamin D 125 and vitamin A as still pending. Vitamin D 25 and intact PTH levels appropriately low. High suspicion for multiple myeloma given calvarium lesions. I have discussed case with personnel security assistant Dr. Pagan this morning who has accepted patient for upgrade to ICU level care.
[2019-11-06 15:14] LABS: ALBUMIN 2.6 g/dL (3.5-5.0); ALKALINE PHOSPHATASE 100 U/L (38-126); ANION GAP 6 (5-19); ASPARTATE AMINO TRANSFERASE 37 U/L (14-36); BILIRUBIN,DIRECT 0.2 mg/dL (0.0-0.4); BILIRUBIN,TOTAL 0.8 mg/dL (0.2-1.3); BLOOD UREA NITROGEN 37 mg/dL (7-20); CARBON DIOXIDE 28 mmol/L (22-30); CHLORIDE 110 mmol/L (98-107); GLUCOSE 265 mg/dL (75-110); PHOSPHORUS 1.8 mg/dL (2.5-4.5); POTASSIUM 3.4 mmol/L (3.6-5.0); TOTAL PROTEIN 5.2 g/dL (6.3-8.2)
[2019-11-06 15:26] LABS: CALCIUM 13.3 mg/dL (8.4-10.2)
[2019-11-06 15:31] LABS: GLUCOSE 578 mg/dL (75-110)
--- NOTE | 2019-11-06 16:04 | PDOC CONSULTATION ---
Consultation Consult Date: 11/06/19 Provider Consulted: PATRICIA RUBIO Consult reason:: Evaluate buttocks abscess History of Present Illness Admission Date/PCP: 11/05/19 00:00 INES HUNT MD Patient complains of: Patient noted with mental status changes History of Present Illness: MELISSA SAM is a 64 year old female currently in the hospital for work-up of mental status changes along with diarrhea and nausea and vomiting. Noted with a left buttocks abscess with the drainage of foul-smelling material. She has been febrile in the hospital. Patient cannot give a history due to her mental status and it is uncertain how long she has had this process. She does have diabetes. Past Medical History Cardiac Medical History: Reports: Hypertension Denies: Coronary Artery Disease, Myocardial Infarction, Hyperlipidema Pulmonary Medical History: Reports: Chronic Obstructive Pulmonary Disease (COPD) Denies: Asthma, Pneumonia EENT Medical History: Denies: Cataracts, Ears - Hearing aids Neurological Medical History: Denies: Hemorrhagic CVA, Ischemic CVA, Seizures Endocrine Medical History: Reports: Diabetes Mellitus Type 2 Denies: Diabetes Mellitus Type 1, Hyperthyroidism, Hypothyroidism Renal/ Medical History: Denies: Chronic Kidney Disease, Nephrolithiasis Malignancy Medical History: Reports: None GI Medical History: Denies: Cirrhosis, Hepatitis Musculoskeltal Medical History: Denies: Arthritis, Fibromyalgia Skin Medical History: Denies: Eczema, Psoriasis Psychiatric Medical History: Reports: Depression, Tobacco Dependency Denies: Alcohol Dependency, Substance Abuse Traumatic Medical History: Reports: None Hematology: Denies: Anemia, Bleeding Tendencies Infectious Medical History: Reports: None Past Surgical History Past Surgical History: Reports: Cholecystectomy, Hysterectomy Social History Lives with: Family, Spouse/Significant other Smoking Status: Current Every Day Smoker Electronic Cigarette use?: No Frequency of Alcohol Use: None Hx Recreational Drug Use: No Drugs: None Hx Prescription Drug Abuse: No - Advance Directive Resuscitation Status: Full Code Family History Family History: Reviewed & Not Pertinent Parental Family History Reviewed: No Children Family History Reviewed: No Sibling(s) Family History Reviewed.: No Medication/Allergy Home Medications: Amlodipine Besylate/Benazepril [Amlodipine-Benazepril 10-40 mg] 1 cap PO QPM 11/05/19 Gabapentin [Neurontin] 800 mg PO Q8 11/05/19 Hydrocodone/Acetaminophen [[place] 10-325 mg Tablet] 2 tab PO Q8 11/05/19 Lorazepam [Ativan 1 mg Tablet] 2 mg PO Q6HP PRN 11/05/19 Sulfamethoxazole/Trimethoprim [Bactrim Ds Tablet] 1 tab PO BID 11/05/19 Allergies/Adverse Reactions: No Known Allergies Allergy (Unverified 11/05/19 03:41) Review of Systems ROS unobtainable: Due to mental status Physical Exam Vital Signs: Temp Pulse Resp BP Pulse Ox 100.4 F 99 34 H 135/64 H 96 11/06/19 12:31 11/06/19 12:14 11/06/19 14:47 11/06/19 14:47 11/06/19 14:47 Intake & Output 11/05/19 11/06/19 11/07/19 06:59 06:59 06:59 Intake Total 2018 6428 1331 Output Total 5066 Balance 2019 -834 1337 Weight 86.4 kg 85.6 kg 102 kg Respiratory exam: PRESENT: clear to auscultation paula Cardiovascular exam: PRESENT: RRR GI/Abdominal exam: PRESENT: other - Soft, nondistended, no apparent tenderness to palpation. Skin exam: PRESENT: other - At her left buttocks several centimeters away from the anus there is a approximately 4 x 8 cm region of fluctuance with overlying erythema with a small opening with some foul-smelling drainage. There is apparently some tenderness in this region. On digital rectal exam I am unable to feel any perianal fluctuance. Results Laboratory Results: 11/06/19 05:53 11/06/19 14:25 11/04/19 11/05/19 11/06/19 21:27 17:48 05:53 WBC 12.2 H RBC 4.14 Hgb 11.6 L Hct 34.7 L MCV 84 MCH 28.0 MCHC 33.4 RDW 16.6 H Plt Count 80 L Sodium 136.3 L Potassium 3.8 Chloride 103 Carbon Dioxide 25 Anion Gap 8 BUN 40 H Creatinine 1.41 H Est GFR ( Amer) 45 L Glucose 578 H* 379 H Calcium 16.8 H* Phosphorus Magnesium 1.7 Total Bilirubin AST Alkaline Phosphatase Total Protein Albumin 11/06/19 11/06/19 05:53 14:25 WBC RBC Hgb Hct MCV MCH MCHC RDW Plt Count Sodium 140.7 143.6 Potassium 3.4 L 3.4 L Chloride 108 H 110 H Carbon Dioxide 27 28 Anion Gap 6 6 BUN 39 H 37 H Creatinine 1.18 1.16 Est GFR ( Amer) 56 L 57 L Glucose 372 H 265 H Calcium 14.4 H* 13.3 H* Phosphorus 2.3 L 1.8 L Magnesium 1.3 L Total Bilirubin 0.8 AST 37 H Alkaline Phosphatase 100 Total Protein 5.2 L Albumin 2.6 L 11/05/19 08:59 NT-Pro-B Natriuret Pep 2270 H Impressions: Head CT 11/04/19 00:00 IMPRESSION: No acute intracranial hemorrhage or mass effect. Mild chronic microvascular ischemic change with remote lacunar infarct about the anterior aspect of the left lentiform nucleus extending into the myles radiata. Widespread lucent lesions throughout the calvarium and skull base, concerning for either metastatic disease or multiple myeloma. Correlate. TECHNICAL DOCUMENTATION: Quality ID # 436: Final reports with documentation of one or more dose reduction techniques (e.g., Automated exposure control, adjustment of the mA and/or kV according to patient size, use of iterative reconstruction technique) copyright 2011 [employer]- All Rights Reserved Chest X-Ray 11/06/19 08:04 IMPRESSION: Unchanged radiographic appearance of the chest. Assessment & Plan - Diagnosis (1) Abscess of left buttock Is this a current diagnosis for this admission?: Yes Plan: Patient will need surgical debridement in the OR. I will attempt to talk to her since patient is not able to provide consent with her mental status. I will discuss with him risk and benefits of the procedure including risk of infection, bleeding, prolonged wound healing and recurrence as well as cardiopulmonary risks. Provided he agrees to let me proceed I will plan this procedure tonight.
[2019-11-06 17:36] LABS: FREE KAPPA LIGHT CHAINS 5.7 mg/L (3.3-19.4); FREE LAMBDA LIGHT CHAINS 324.3 mg/L (5.7-26.3)
[2019-11-06] MEDS: PIPERACILLIN SODIUM/TAZOBACTAM 3.375 GM in NORMAL SALINE 100 ML IV SCH (17:41)
[2019-11-06] MEDS: NICOTINE 21 MG/24 HR PATCH.TD24 TD PRN (17:43)
--- NOTE | 2019-11-06 18:44 | Progress Note ---
Provider Note Provider Note: COVID test returned as negative.
[2019-11-06] MEDS ORDERED: BUPIVACAINE HCL 0.25 % INJ/PF (2.5 MG/1 ML) 30 ML VIAL ONE (19:29)
[2019-11-06] MEDS ORDERED: LIDOCAINE 2% INJ-PF (20 MG/ML) 10 ML AMPUL ONE (19:29)
[2019-11-06] MEDS ORDERED: LIDOCAINE 1% INJ-PF (10 MG/ML) 30 ML SDV ONE (19:29)
[2019-11-06] MEDS ORDERED: PROPOFOL INJ 200 MG/20 ML VIAL IV ONE (19:30)
[2019-11-06] MEDS ORDERED: ONDANSETRON HCL INJ/PF 4 MG/2 ML SDV ONE (19:30)
[2019-11-06] MEDS ORDERED: MIDAZOLAM 2 MG/2 ML INJ ONE (19:30)
[2019-11-06] MEDS ORDERED: FENTANYL CITRATE INJ/PF 100 MCG/2 ML AMPUL ONE (19:30)
[2019-11-06] MEDS ORDERED: DEXAMETHASONE SOD PHOSPHATE INJ 4 MG/1 ML VIAL ONE (19:30)
--- NOTE | 2019-11-06 20:19 | EKG REPORT ---
SEVERITY:- ABNORMAL ECG - SINUS RHYTHM PROBABLE LEFT ATRIAL ABNORMALITY LVH WITH SECONDARY REPOLARIZATION ABNORMALITY CONSIDER ANTERIOR INFARCT : Confirmed by: Noble Kelley MD 06-Nov-2019 20:18:39
[2019-11-06] MEDS ORDERED: DEXMEDETOMIDINE INJ 80 MCG/20 ML VIAL IV ONE (23:54)
[2019-11-07] MEDS ORDERED: FENTANYL CITRATE INJ/PF 100 MCG/2 ML AMPUL IV PRN ×3 (00:47)
[2019-11-07] MEDS ORDERED: MEPERIDINE HCL/PF INJ 25 MG/1 ML DISP.SYRIN IV PRN (00:47)
[2019-11-07] MEDS ORDERED: MORPHINE SULFATE 10 MG/ML INJ IV PRN (00:47)
[2019-11-07] MEDS ORDERED: PROMETHAZINE HCL INJ 25 MG/1 ML VIAL IV PRN ×2 (00:47)
[2019-11-07] MEDS ORDERED: OXYCODONE-ACETAMINOPHEN 5-325 MG TABLET PO PRN ×2 (00:47)
[2019-11-07] MEDS ORDERED: CLINDAMYCIN 600 MG/D5W RTU 600 MG/50 ML RTUPB IV ONE (00:47)
[2019-11-07] MEDS ORDERED: ONDANSETRON HCL INJ/PF 4 MG/2 ML SDV IV PRN (00:47)
[2019-11-07] MEDS ORDERED: DIPHENHYDRAMINE HCL 50 MG/ML VIAL IV PRN (00:47)
[2019-11-07] MEDS ORDERED: BACITRACIN INJ 50,000 UNIT VIAL ONE ×2 (01:36→01:46)
[2019-11-07] MEDS ORDERED: FENTANYL CITRATE INJ/PF 100 MCG/2 ML AMPUL ONE (01:39)
--- NOTE | 2019-11-07 02:08 | Operative Report ---
Operative Report DATE OF SURGERY: 11/07/19 PREOPERATIVE DIAGNOSIS: Left buttocks abscess. POSTOPERATIVE DIAGNOSIS: Necrotizing fasciitis OPERATION: Excisional debridement of left buttocks, pair of vulvar region and groin. Approximately 20 cm x 10 cm surface area of necrotic tissue excised SURGEON: PATRICIA RUBIO ANESTHESIA: LMAC TISSUE REMOVED OR ALTERED: Necrotic tissue submitted for Gram stain and culture COMPLICATIONS: None ESTIMATED BLOOD LOSS: 200 cc INTRAOPERATIVE FINDINGS: Evidence of necrotizing fasciitis with foul-smelling dishwater appearing fluid tracking along fascial planes with necrotic tissue. PROCEDURE: Informed consent was obtained. Patient was brought to the operating room placed on operating table in the supine position. Procedure was done of the LMAC. She was placed in the lithotomy position and her buttocks and perineum and groin were prepped and draped in usual sterile fashion. At her left buttocks several centimeters away from the perianal region there was open wound with foul- smelling drainage. This area was infiltrated with a local anesthetic. Of note copious amount of local anesthetic was used during the case. The wound was widened with a scalpel and I noted necrotic tissue with foul-smelling dishwater appearing drainage. Therefore the wound was widened. Again local anesthetic was administered as I progressed through the case. I encountered more necrotic tissue that appeared to track cephalad and somewhat laterally along tissue candice emmanuel. All of these necrotic planes were sharply excised with scissors. All necrotic tissue was excised. In the end the wound had to be extended cephalad at the delfin-vulvar region and up to the groin, with the wound length being about 20 cm long. I felt the track going to the left groin and a counterincision was made over this region but visualization of this region demonstrated no necrotic tissue in this area. All tracts were explored to ensure that it was adequately drained and all necrotic tissue was excised. There was blood loss during the case. Hemostasis was achieved with electrocautery. Hemostasis appeared good at the end of the case. The operative field was irrigated with antibiotic impregnated water. The wound appears very clean at the end of the case. The wound was then packed with antibiotic soaked Kerlix. Patient tolerated procedure well with no apparent complications and was taken to the recovery area in stable condition.
[2019-11-07] MEDS: PIPERACILLIN SODIUM/TAZOBACTAM 3.375 GM in NORMAL SALINE 100 ML IV SCH ×3 (03:22→18:24)
[2019-11-07] MEDS: NORMAL SALINE 1000 ML 1,000 ML IV PRN ×4 (03:23→23:11)
[2019-11-07] MEDS: HEPARIN SOD (PORCINE) 5,000 UNIT/ML 1 ML VIAL SUBCUT SCH ×3 (05:12→21:06)
[2019-11-07 05:13] LABS: HEMATOCRIT 33.4 % (36.0-47.0); MEAN CORPUSCULAR HEMOGLOBIN 28.1 pg (27.0-33.4); MEAN CORPUSCULAR HGB CONC 32.8 g/dL (32.0-36.0); MEAN CORPUSCULAR VOLUME 86 fl (80-97); RED BLOOD COUNT 3.91 10^6/uL (3.72-5.28); RED CELL DISTRIBUTION WIDTH 17.3 % (11.5-14.0); WHITE BLOOD COUNT 9.5 10^3/uL (4.0-10.5)
[2019-11-07 05:31] LABS: PLATELET COUNT 67 10^3/uL (150-450)
[2019-11-07] MEDS: INSULIN GLARGINE,HUM.REC.ANLOG 1,000 UNIT/10 ML VIAL SUBCUT SCH ×2 (05:44→18:24)
[2019-11-07] MEDS: INSULIN REG, HUMAN 100 UNIT/ML 3 ML VIAL (PYX) SUBCUT SCH ×4 (05:45→23:27)
[2019-11-07] MEDS ORDERED: CLINDAMYCIN PHOSPHATE 1,200 MG in DEXTROSE 5%-WATER 100 ML IV ONE (06:45)
[2019-11-07] MEDS ORDERED: CLINDAMYCIN 600 MG/D5W RTU 1,200 MG/100 ML RTUPB IV ONE (07:16)
[2019-11-07 07:29] LABS: BLOOD UREA NITROGEN 41 mg/dL (7-20); CALCIUM 11.9 mg/dL (8.4-10.2); GLUCOSE 227 mg/dL (75-110); POTASSIUM 3.6 mmol/L (3.6-5.0)
[2019-11-07 07:34] LABS: ANION GAP 5 (5-19); CARBON DIOXIDE 26 mmol/L (22-30); CHLORIDE 115 mmol/L (98-107)
--- NOTE | 2019-11-07 08:31 | PDOC CRITICAL CARE PROG REPORT ---
General Date:: 11/07/19 ICU Day:: 2 Hospital Day:: 3 Resuscitation Status: Full Code Events in the past 12 to 24 Hours:: To the OR for debridement of necrotizing fasciitis. Review of systems relevant to events:: Neurologic, CV. Reason for ICU Addmission:: Septic, necrotizing fasciitis. To OR again today. - Medications: Medications reviewed and adjusted accordingly: Yes Vasopressors:: None Sedation:: None Physical Exam Vital Signs: Temp Pulse Resp BP Pulse Ox 100.6 F H 85 23 H 123/21 L 98 11/07/19 05:58 11/07/19 05:58 11/07/19 05:58 11/07/19 05:58 11/07/19 05:58 Intake & Output 11/06/19 11/07/19 11/08/19 06:59 06:59 06:59 Intake Total 4726 3126 Output Total 5075 1045 Balance -349 2081 Weight 85.6 kg 105.2 kg Weight/Height Weight 105.2 kg Height 5 ft 8 in General appearance: PRESENT: no acute distress, disheveled, other - Confused Head exam: PRESENT: atraumatic, normocephalic Eye exam: PRESENT: conjunctiva pink, EOMI, PERRLA. ABSENT: scleral icterus Ear exam: PRESENT: normal external ear exam Mouth exam: PRESENT: dry mucosa Respiratory exam: PRESENT: clear to auscultation paula, decreased breath sounds. ABSENT: rales, rhonchi, wheezes Cardiovascular exam: PRESENT: RRR. ABSENT: diastolic murmur, rubs, systolic murmur GI/Abdominal exam: PRESENT: normal bowel sounds, soft. ABSENT: distended, guarding, mass, organolmegaly, rebound, tenderness Gentrourinary exam: PRESENT: other - Surgical wound dressed. Extremities exam: PRESENT: full ROM. ABSENT: calf tenderness, clubbing, pedal edema Musculoskeletal exam: PRESENT: normal inspection Neurological exam: PRESENT: alert, altered Skin exam: PRESENT: dry, intact, warm. ABSENT: cyanosis, rash Laboratory/Radiographs Laboratory Results: 11/07/19 04:49 11/07/19 04:49 11/04/19 11/06/19 11/07/19 21:27 14:25 04:49 WBC 9.5 RBC 3.91 Hgb 11.0 L Hct 33.4 L MCV 86 MCH 28.1 MCHC 32.8 RDW 17.3 H Plt Count 67 L Sodium 143.6 Potassium 3.4 L Chloride 110 H Carbon Dioxide 28 Anion Gap 6 BUN 37 H Creatinine 1.16 Est GFR ( Amer) 57 L Glucose 578 H* 265 H Calcium 13.3 H* Phosphorus 1.8 L Magnesium 1.3 L Total Bilirubin 0.8 AST 37 H Alkaline Phosphatase 100 Total Protein 5.2 L Albumin 2.6 L 11/07/19 04:49 WBC RBC Hgb Hct MCV MCH MCHC RDW Plt Count Sodium 146.3 H Potassium 3.6 Chloride 115 H Carbon Dioxide 26 Anion Gap 5 BUN 41 H Creatinine 1.18 Est GFR ( Amer) 56 L Glucose 227 H Calcium 11.9 H Phosphorus Magnesium Total Bilirubin AST Alkaline Phosphatase Total Protein Albumin 11/05/19 08:59 NT-Pro-B Natriuret Pep 2270 H Impressions: Head CT 11/04/19 00:00 IMPRESSION: No acute intracranial hemorrhage or mass effect. Mild chronic microvascular ischemic change with remote lacunar infarct about the anterior aspect of the left lentiform nucleus extending into the myles radiata. Widespread lucent lesions throughout the calvarium and skull base, concerning for either metastatic disease or multiple myeloma. Correlate. TECHNICAL DOCUMENTATION: Quality ID # 436: Final reports with documentation of one or more dose reduction techniques (e.g., Automated exposure control, adjustment of the mA and/or kV according to patient size, use of iterative reconstruction technique) copyright 2011 [employer]- All Rights Reserved Chest X-Ray 11/06/19 08:04 IMPRESSION: Unchanged radiographic appearance of the chest. All labs, radiographs, diagnostic studies and EKGs were personally reviewed: Yes In addition, reports of radiographic and diagnostic studies were read: Yes Assessment and Plan - Diagnosis (1) Sepsis Qualifiers: Sepsis acute organ dysfunction status: with acute organ dysfunction Severe sepsis acute organ dysfunction type: encephalopathy Severe sepsis shock status: without septic shock Is this a current diagnosis for this admission?: Yes Plan: Her sepsis is resolving well on antibiotics with surgery. She is still somewhat febrile to 100.3. Tachypnic above 20. She will go back to the OR for further debridement later today. (2) Decubitus skin ulcer Qualifiers: Pressure injury location: buttock Pressure injury stage: unspecified pressure injury stage Laterality: left Qualified Code(s): L89.329 - Pressure ulcer of left buttock, unspecified stage Is this a current diagnosis for this admission?: Yes Plan: This is not a decubitus but necrotizing fasciitis. (3) Altered mental status Qualifiers: Altered mental status type: delirium Qualified Code(s): R41.0 - Disori entation, unspecified Is this a current diagnosis for this admission?: Yes Plan: She has a sepsis induced metabolic encephalopathy which is improving with treatment of her infection and hypercalcemia. (4) Atrial fibrillation with RVR Is this a current diagnosis for this admission?: Yes Plan: Cardizem drip turned down as HR is improved. (5) Diabetes mellitus type 2 in nonobese Is this a current diagnosis for this admission?: Yes Plan: Under much better control. (6) Fever Qualifiers: Fever type: due to other condition Qualified Code(s): R50.81 - Fever presenting with conditions classified elsewhere Is this a current diagnosis for this admission?: Yes Plan: Improved but still low grade fever but improved. Continue antibiotics, second debridement. (7) Leukocytosis Qualifiers: Leukocytosis type: unspecified Qualified Code(s): D72.829 - Elevated white blood cell count, unspecified Is this a current diagnosis for this admission?: Yes Plan: WBC back down to normal. (8) Hypercalcemia Is this a current diagnosis for this admission?: Yes Plan: Level within normal range today. Plan Summary: To OR today for second debridement. Still needs the ICU for another day and to recover from OR. Critical Time Critical Time (minutes): 35 Level of Care: ICU Anticipated discharge: SNF Within: Other -: 1. The care of a critical patient is a dynamic process. This note is a corporate representative synopsis but static in nature. The timeframe for treatments given in order is not necessarily the actual time these treatments may have been done. 2. This patient requires critical care secondary to ongoing requirements for therapy not offered or safe outside the critical care environment. Transfer to a lower level of care will result in altered life or limb morbidity and mortality. 3. Multidisciplinary rounds completed. 4. ABCDE bundle addressed.
[2019-11-07] MEDS: MORPHINE SULFATE 10 MG/ML INJ IV PRN ×4 (09:00→23:08)
[2019-11-07] MEDS: CLINDAMYCIN PHOSPHATE 1,200 MG in DEXTROSE 5%-WATER 100 ML IV SCH ×2 (09:23→18:24)
--- NOTE | 2019-11-07 09:26 | PDOC PROGRESS REPORT ---
Subjective Progress Note for:: 11/07/19 Subjective:: necrotizing fascitis Reason For Visit: HYPERCALCEMIA,ACUTE METABOLIC ENCEPHALOPATHY, Physical Exam Vital Signs: Temp Pulse Resp BP Pulse Ox 100.6 F H 85 23 H 123/21 L 98 11/07/19 05:58 11/07/19 05:58 11/07/19 05:58 11/07/19 05:58 11/07/19 05:58 Intake & Output 11/06/19 11/07/19 11/08/19 06:59 06:59 06:59 Intake Total 4726 3126 888 Output Total 5096 1045 Balance -349 2086 888 Weight 85.6 kg 105.2 kg General appearance: PRESENT: mild distress, morbidly obese Head exam: PRESENT: normocephalic Eye exam: PRESENT: EOMI Mouth exam: PRESENT: moist Neck exam: PRESENT: full ROM Respiratory exam: PRESENT: clear to auscultation paula Cardiovascular exam: PRESENT: RRR Breast: PRESENT: Normal GI/Abdominal exam: PRESENT: soft Rectal exam: PRESENT: other - left groin and buttock incision clean packing removed no evidence of puruent drainage. Extremities exam: PRESENT: full ROM Musculoskeletal exam: PRESENT: full ROM Neurological exam: PRESENT: altered, awake Psychiatric exam: PRESENT: unusual affect Skin exam: PRESENT: dry Results Laboratory Results: 11/07/19 04:49 11/07/19 04:49 11/04/19 11/06/19 11/07/19 21:27 14:25 04:49 WBC 9.5 RBC 3.91 Hgb 11.0 L Hct 33.4 L MCV 86 MCH 28.1 MCHC 32.8 RDW 17.3 H Plt Count 67 L Sodium 143.6 Potassium 3.4 L Chloride 110 H Carbon Dioxide 28 Anion Gap 6 BUN 37 H Creatinine 1.16 Est GFR ( Amer) 57 L Glucose 578 H* 265 H Calcium 13.3 H* Phosphorus 1.8 L Magnesium 1.3 L Total Bilirubin 0.8 AST 37 H Alkaline Phosphatase 100 Total Protein 5.2 L Albumin 2.6 L 11/07/19 04:49 WBC RBC Hgb Hct MCV MCH MCHC RDW Plt Count Sodium 146.3 H Potassium 3.6 Chloride 115 H Carbon Dioxide 26 Anion Gap 5 BUN 41 H Creatinine 1.18 Est GFR ( Amer) 56 L Glucose 227 H Calcium 11.9 H Phosphorus Magnesium Total Bilirubin AST Alkaline Phosphatase Total Protein Albumin 11/05/19 08:59 NT-Pro-B Natriuret Pep 2270 H Impressions: Head CT 11/04/19 00:00 IMPRESSION: No acute intracranial hemorrhage or mass effect. Mild chronic microvascular ischemic change with remote lacunar infarct about the anterior aspect of the left lentiform nucleus extending into the myles radiata. Widespread lucent lesions throughout the calvarium and skull base, concerning for either metastatic disease or multiple myeloma. Correlate. TECHNICAL DOCUMENTATION: Quality ID # 436: Final reports with documentation of one or more dose reduction techniques (e.g., Automated exposure control, adjustment of the mA and/or kV according to patient size, use of iterative reconstruction technique) copyright 2011 [employer]- All Rights Reserved Chest X-Ray 11/06/19 08:04 IMPRESSION: Unchanged radiographic appearance of the chest. Assessment & Plan - Plan Summary Plan Summary: s/p incision drainage of large perirectal/groin/buttock abscess/ necrotizing fascitis wound looks better this am will start wet to dry dressing changes.
[2019-11-07 11:56] LABS: KAPPA LAMBDA RATIO 0.02 (0.26-1.65)
[2019-11-07] MEDS: NICOTINE 21 MG/24 HR PATCH.TD24 TD PRN (13:20)
[2019-11-07] MEDS ORDERED: CLINDAMYCIN PHOSPHATE 1,200 MG in DEXTROSE 5%-WATER 100 ML IV SCH (14:00)
[2019-11-08] MEDS: CLINDAMYCIN PHOSPHATE 1,200 MG in DEXTROSE 5%-WATER 100 ML IV SCH ×2 (02:23→09:17)
[2019-11-08] MEDS: MORPHINE SULFATE 10 MG/ML INJ IV PRN ×5 (02:23→21:39)
[2019-11-08] MEDS: PIPERACILLIN SODIUM/TAZOBACTAM 3.375 GM in NORMAL SALINE 100 ML IV SCH ×3 (02:25→17:25)
[2019-11-08 04:46] LABS: BLOOD UREA NITROGEN 40 mg/dL (7-20); CALCIUM 10.5 mg/dL (8.4-10.2); GLUCOSE 166 mg/dL (75-110); POTASSIUM 3.3 mmol/L (3.6-5.0)
[2019-11-08 04:51] LABS: CARBON DIOXIDE 27 mmol/L (22-30); CHLORIDE 121 mmol/L (98-107)
[2019-11-08 04:52] LABS: ANION GAP 3 (5-19)
[2019-11-08 04:56] LABS: HEMATOCRIT 28.2 % (36.0-47.0); HEMOGLOBIN 9.6 g/dL (12.0-15.5); MEAN CORPUSCULAR HEMOGLOBIN 29.2 pg (27.0-33.4); MEAN CORPUSCULAR HGB CONC 33.9 g/dL (32.0-36.0); MEAN CORPUSCULAR VOLUME 86 fl (80-97); RED BLOOD COUNT 3.28 10^6/uL (3.72-5.28); RED CELL DISTRIBUTION WIDTH 17.4 % (11.5-14.0); WHITE BLOOD COUNT 7.3 10^3/uL (4.0-10.5)
[2019-11-08 05:17] LABS: PLATELET COUNT 65 10^3/uL (150-450)
[2019-11-08] MEDS: MORPHINE SULFATE 10 MG/ML INJ IV SCH ×2 (05:36→06:15)
[2019-11-08] MEDS: HEPARIN SOD (PORCINE) 5,000 UNIT/ML 1 ML VIAL SUBCUT SCH ×3 (06:04→21:00)
[2019-11-08] MEDS: INSULIN REG, HUMAN 100 UNIT/ML 3 ML VIAL (PYX) SUBCUT SCH ×4 (06:05→23:51)
[2019-11-08] MEDS: INSULIN GLARGINE,HUM.REC.ANLOG 1,000 UNIT/10 ML VIAL SUBCUT SCH ×2 (06:14→17:24)
[2019-11-08] MEDS: NORMAL SALINE 1000 ML 1,000 ML IV PRN ×2 (06:16→14:00)
[2019-11-08] MEDS: LORAZEPAM 1 MG TABLET PO PRN ×3 (09:16→23:38)
--- NOTE | 2019-11-08 09:24 | PDOC CRITICAL CARE PROG REPORT ---
General Date:: 11/08/19 ICU Day:: 2 Hospital Day:: 4 Resuscitation Status: Full Code Events in the past 12 to 24 Hours:: More awake. Somewhat confused at times. Extubated. Review of systems relevant to events:: Neuro. pulmonary Reason for ICU Addmission:: More awake, no pressors. Able to downgrade. - Medications: Medications reviewed and adjusted accordingly: Yes Vasopressors:: None Sedation:: None Physical Exam Vital Signs: Temp Pulse Resp BP Pulse Ox 98.6 F 74 16 150/61 H 90 L 11/08/19 06:00 11/08/19 06:00 11/08/19 06:00 11/08/19 06:00 11/08/19 06:00 Intake & Output 11/07/19 11/08/19 11/09/19 06:59 06:59 06:59 Intake Total 3126 4512 Output Total 1045 1915 Balance 2081 2597 Weight 105.2 kg 105.2 kg Weight/Height Weight 105.2 kg Height 5 ft 8 in General appearance: PRESENT: no acute distress, obese Head exam: PRESENT: atraumatic, normocephalic Eye exam: PRESENT: conjunctiva pink, EOMI, PERRLA. ABSENT: scleral icterus Ear exam: PRESENT: normal external ear exam Mouth exam: PRESENT: dry mucosa Neck exam: ABSENT: carotid bruit, JVD, lymphadenopathy, thyromegaly Respiratory exam: PRESENT: clear to auscultation paula, decreased breath sounds. ABSENT: rales, rhonchi, wheezes GI/Abdominal exam: PRESENT: normal bowel sounds, soft. ABSENT: distended, guarding, mass, organolmegaly, rebound, tenderness Rectal exam: PRESENT: deferred, other - Wound dressed sterilly. Gentrourinary exam: PRESENT: indwelling catheter Extremities exam: PRESENT: full ROM. ABSENT: calf tenderness, clubbing, pedal edema Musculoskeletal exam: PRESENT: normal inspection Neurological exam: PRESENT: alert, oriented to person, oriented to place Psychiatric exam: PRESENT: appropriate affect, normal mood. ABSENT: homicidal ideation, suicidal ideation Skin exam: PRESENT: dry, intact, warm. ABSENT: cyanosis, rash Laboratory/Radiographs Laboratory Results: 11/08/19 04:14 11/08/19 04:14 11/08/19 11/08/19 04:14 04:14 WBC 7.3 RBC 3.28 L Hgb 9.6 L Hct 28.2 L MCV 86 MCH 29.2 MCHC 33.9 RDW 17.4 H Plt Count 65 L Sodium 150.6 H Potassium 3.3 L Chloride 121 H Carbon Dioxide 27 Anion Gap 3 L BUN 40 H Creatinine 0.95 Est GFR ( Amer) > 60 Glucose 166 H Calcium 10.5 H 11/06/19 12:30 Buttocks - Left Gram Stain - Final 11/06/19 12:30 Buttocks - Left Wound Culture - Final Group F Beta Streptococcus Bacteroides Fragilis Group Anaerococcus (Peptostrep) Sp. 11/05/19 08:59 NT-Pro-B Natriuret Pep 2270 H Impressions: Head CT 11/04/19 00:00 IMPRESSION: No acute intracranial hemorrhage or mass effect. Mild chronic microvascular ischemic change with remote lacunar infarct about the anterior aspect of the left lentiform nucleus extending into the myles radiata. Widespread lucent lesions throughout the calvarium and skull base, concerning for either metastatic disease or multiple myeloma. Correlate. TECHNICAL DOCUMENTATION: Quality ID # 436: Final reports with documentation of one or more dose reduction techniques (e.g., Automated exposure control, adjustment of the mA and/or kV according to patient size, use of iterative reconstruction technique) copyright 2011 [employer]- All Rights Reserved Chest X-Ray 11/06/19 08:04 IMPRESSION: Unchanged radiographic appearance of the chest. All labs, radiographs, diagnostic studies and EKGs were personally reviewed: Yes In addition, reports of radiographic and diagnostic studies were read: Yes Assessment and Plan - Diagnosis (1) Sepsis Qualifiers: Sepsis acute organ dysfunction status: with acute organ dysfunction Severe sepsis acute organ dysfunction type: encephalopathy Severe sepsis shock status: without septic shock Is this a current diagnosis for this admission?: Yes Plan: Resolve. No fever, tachycardia, tachypnea, WBC 9. (2) Altered mental status Qualifiers: Altered mental status type: delirium Qualified Code(s): R41.0 - Disorientation, unspecified Is this a current diagnosis for this admission?: Yes Plan: Improved (3) Atrial fibrillation with RVR Is this a current diagnosis for this admission?: Yes Plan: Resolved (4) Diabetes mellitus type 2 in nonobese Is this a current diagnosis for this admission?: Yes Plan: Better controlled (5) Fever Qualifiers: Fever type: due to other condition Qualified Code(s): R50.81 - Fever presenting with conditions classified elsewhere Is this a current diagnosis for this admission?: Yes Plan: Resolved (6) Leukocytosis Qualifiers: Leukocytosis type: unspecified Qualified Code(s): D72.829 - Elevated white blood cell count, unspecified Is this a current diagnosis for this admission?: Yes Plan: Resolved (7) Hypercalcemia Is this a current diagnosis for this admission?: Yes Plan: Level now normal. Labs pending. Plan Summary: [place] [facility] [place]. Critical Time Critical Time (minutes): 30 Level of Care: [facility] Anticipated discharge: SNF Within: Other -: 1. The care of a critical patient is a dynamic process. This note is a rep resentative synopsis but static in nature. The timeframe for treatments given in order is not necessarily the actual time these treatments may have been done. 2. This patient requires critical care secondary to ongoing requirements for therapy not offered or safe outside the critical care environment. Transfer to a lower level of care will result in altered life or limb morbidity and mortality. 3. Multidisciplinary rounds completed. 4. ABCDE bundle addressed.
[2019-11-08] MEDS ORDERED: POTASSIUM CHLORIDE 10 MEQ TABLET.ER PO ONE ×2 (10:30→13:54)
[2019-11-08] MEDS: MAGNESIUM SULFATE/D5W 1 GM/100 ML RTUPB IV SCH ×2 (14:00→14:34)
[2019-11-08] MEDS ORDERED: MAGNESIUM SULFATE/D5W 1 GM/100 ML RTUPB IV ONE (14:42)
--- NOTE | 2019-11-08 14:50 | PDOC PROGRESS REPORT ---
Subjective Progress Note for:: 11/08/19 Subjective:: more awake and responsive today Reason For Visit: HYPERCALCEMIA,ACUTE METABOLIC ENCEPHALOPATHY, Physical Exam Vital Signs: Temp Pulse Resp BP Pulse Ox 98.6 F 74 16 150/61 H 90 L 11/08/19 06:00 11/08/19 06:00 11/08/19 06:00 11/08/19 06:00 11/08/19 06:00 Intake & Output 11/07/19 11/08/19 11/09/19 06:59 06:59 06:59 Intake Total 3126 4512 1501 Output Total 1045 1915 375 Balance 2083 2232 1126 Weight 105.2 kg 105.2 kg General appearance: PRESENT: mild distress Head exam: PRESENT: normocephalic Eye exam: PRESENT: EOMI Ear exam: PRESENT: normal external ear exam Mouth exam: PRESENT: moist Teeth exam: PRESENT: poor dentation Neck exam: PRESENT: full ROM Respiratory exam: PRESENT: clear to auscultation paula Cardiovascular exam: PRESENT: RRR GI/Abdominal exam: PRESENT: soft - on the left lower flank there is some fullness and mild cellulitis extending diagonal to the left labia incision pt c/o tnederness no flulctulence Rectal exam: PRESENT: deferred, other - the left perineal wound and labilal incision, being dressed w-dry iwth ns kerlix gauze reported dry with min necrosis per nurse. Psychiatric exam: PRESENT: agitated Skin exam: PRESENT: dry Results Laboratory Results: 11/08/19 04:14 11/08/19 04:14 11/08/19 11/08/19 11/08/19 04:14 04:14 04:14 WBC 7.3 RBC 3.28 L Hgb 9.6 L Hct 28.2 L MCV 86 MCH 29.2 MCHC 33.9 RDW 17.4 H Plt Count 65 L Sodium 150.6 H Potassium 3.3 L Chloride 121 H Carbon Dioxide 27 Anion Gap 3 L BUN 40 H Creatinine 0.95 Est GFR ( Amer) > 60 Glucose 166 H Calcium 10.5 H Magnesium 1.6 11/07/19 00:33 Buttocks - Left Gram Stain - Final 11/07/19 00:33 Buttocks - Left Wound Culture - Final Group F Beta Streptococcus Anaerococcus (Peptostrep) Sp. Bacteroides Fragilis Group 11/07/19 00:39 Buttocks - Left Gram Stain - Final 11/07/19 00:39 Buttocks - Left Wound Culture - Final Group F Beta Streptococcus Anaerococcus (Peptostrep) Sp. Bacteroides Fragilis Group 11/06/19 12:30 Buttocks - Left Gram Stain - Final 11/06/19 12:30 Buttocks - Left Wound Culture - Final Group F Beta Streptococcus Bacteroides Fragilis Group Anaerococcus (Peptostrep) Sp. 11/05/19 08:59 NT-Pro-B Natriuret Pep 2270 H Impressions: Head CT 11/04/19 00:00 IMPRESSION: No acute intracranial hemorrhage or mass effect. Mild chronic microvascular ischemic change with remote lacunar infarct about the anterior aspect of the left lentiform nucleus extending into the myles radiata. Widespread lucent lesions throughout the calvarium and skull base, concerning for either metastatic disease or multiple myeloma. Correlate. TECHNICAL DOCUMENTATION: Quality ID # 436: Final reports with documentation of one or more dose reduction techniques (e.g., Automated exposure control, adjustment of the mA and/or kV according to patient size, use of iterative reconstruction technique) copyright 2011 [employer]- All Rights Reserved Chest X-Ray 11/06/19 08:04 IMPRESSION: Unchanged radiographic appearance of the chest. Assessment & Plan - Plan Summary Plan Summary: left labial/perineal abscess, necrotizing fascitis s/p debridment now iwth some new left lateral flank streaking plan ct abd, non contrast today to r/o gas vs abscess.
--- NOTE | 2019-11-08 16:14 | RADIOLOGY REPORT (SQ) ---
EXAM DESCRIPTION: CT ABD/PELVIS NO ORAL OR IV IMAGES COMPLETED DATE/TIME: 11/08/2019 3:24 pm REASON FOR STUDY: S/P SURGICAL DEBRIDEMENT COMPARISON: None. TECHNIQUE: CT scan of the abdomen and pelvis performed without intravenous or oral contrast. Images reviewed with lung, soft tissue, and bone windows. Reconstructed coronal and sagittal MPR images revi ewed. All images stored on PACS. All CT scanners at this facility use dose modulation, iterative reconstruction, and/or weight based d osing when appropriate to reduce radiation dose to as low as reasonably achievable (ALARA). [facility]: Dose Right [facility]: CareDose [facility]: Dose Right [facility]: Teradose 4D [facility]: [employer] RADIATION DOSE: CT Rad equipment meets quality standard of care and radiation dose reduction techniq ues were employed. CTDIvol: 20.7 mGy. DLP: 1419 mGy-cm.mGy. LIMITATIONS: None. FINDINGS: LOWER CHEST: Bilateral lower lobe consolidation versus atelectasis. NON-CONTRASTED LIVER, SPLEEN, ADRENALS: Evaluation limited by lack of IV contrast. No identified sign ificant masses. PANCREAS: No masses. No peripancreatic inflammatory changes. GALLBLADDER: No identified stones by CT criteria. No inflammatory changes to suggest cholecystitis. RIGHT KIDNEY AND URETER: No suspicious masses. Assessment limited by lack of IV contrast. No signif icant calcifications. No hydronephrosis or hydroureter. LEFT KIDNEY AND URETER: No suspicious masses. Assessment limited by lack of IV contrast. Punctate n onobstructing nephrolith. No hydronephrosis or hydroureter. AORTA AND RETROPERITONEUM: No aneurysm. No retroperitoneal masses or adenopathy. BOWEL AND PERITONEAL CAVITY: No obvious masses or inflammatory changes. No free fluid. APPENDIX: Not visualized. PELVIS, BLADDER, AND ABDOMINAL WALL:Trace pelvic fat stranding is a nonspecific finding. The bladder is is normal ; a Puente catheter is in place. Subcutaneous fat stranding, slightly asymmetric to the left is likewise a nonspecific finding. Left labial skin defect with wound packing. No focal fluid collection. BONES: No significant findings. OTHER: No other significant finding. IMPRESSION: Left labial wound packing without evidence of complication or adverse trend. Bilateral flank subcutaneous fat stranding asymmetric to the left is a nonspecific finding. No focal fluid col lections/ abscesses. Other chronic and incidental findings as detailed above. COMMENT: Quality ID # 436: Final reports with documentation of one or more dose reduction techniques (e.g., Automated exposure control, adjustment of the mA and/or kV according to patient size, use of iterative reconstruction technique) TECHNICAL DOCUMENTATION: JOB ID: [id number] 2010 [email or web address]- All Rights Reserved Reading location - IP/workstation name: [email or web address]
[2019-11-08] MEDS: AMPICILLIN SODIUM/SULBACTAM NA 3 GM in NORMAL SALINE 100 ML IV SCH ×2 (16:38→20:49)
[2019-11-08] MEDS: RINGERS SOLUTION,LACTATED 1,000 ML IV PRN (20:15)
[2019-11-09] MEDS: MORPHINE SULFATE 10 MG/ML INJ IV PRN ×2 (00:57→08:56)
[2019-11-09] MEDS: PIPERACILLIN SODIUM/TAZOBACTAM 3.375 GM in NORMAL SALINE 100 ML IV SCH (01:51)
[2019-11-09] MEDS ORDERED: HYDROMORPHONE HCL INJ/PF 2 MG/ML AMPULE ONE (02:57)
[2019-11-09] MEDS: AMPICILLIN SODIUM/SULBACTAM NA 3 GM in NORMAL SALINE 100 ML IV SCH ×4 (03:03→21:54)
[2019-11-09 04:58] LABS: HEMATOCRIT 30.3 % (36.0-47.0); MEAN CORPUSCULAR HEMOGLOBIN 28.2 pg (27.0-33.4); MEAN CORPUSCULAR VOLUME 85 fl (80-97); RED BLOOD COUNT 3.56 10^6/uL (3.72-5.28); RED CELL DISTRIBUTION WIDTH 17.6 % (11.5-14.0)
[2019-11-09 05:16] LABS: BLOOD UREA NITROGEN 29 mg/dL (7-20); CALCIUM 9.6 mg/dL (8.4-10.2); GLUCOSE 97 mg/dL (75-110); PHOSPHORUS 1.6 mg/dL (2.5-4.5); POTASSIUM 3.3 mmol/L (3.6-5.0)
[2019-11-09 05:21] LABS: CARBON DIOXIDE 27 mmol/L (22-30); CHLORIDE 124 mmol/L (98-107)
[2019-11-09] MEDS: HEPARIN SOD (PORCINE) 5,000 UNIT/ML 1 ML VIAL SUBCUT SCH ×3 (05:24→21:19)
[2019-11-09 05:26] LABS: ANION GAP 3 (5-19)
[2019-11-09 05:34] LABS: PLATELET COUNT 82 10^3/uL (150-450)
[2019-11-09 05:36] LABS: ABSOLUTE LYMPHOCYTES# (MANUAL) 1.3 10^3/uL (0.5-4.7); ABSOLUTE MONOCYTES # (MANUAL) 0.3 10^3/uL (0.1-1.4); BAND NEUTROPHILS % (MANUAL) 2 % (3-5); BASOPHILS % (MANUAL) 0 % (0-2); EOSINOPHILS % (MANUAL) 0 % (0-6); LYMPHOCYTES % (MANUAL) 12 % (13-45); MONOCYTES % (MANUAL) 3 % (3-13); SEGMENTED NEUTROPHILS % (MAN) 83 % (42-78); TOTAL CELLS COUNTED 100
[2019-11-09 05:37] LABS: ANISOCYTOSIS 1+; OVALOCYTES SLIGHT; PLATELET COMMENT DECREASED; POIKILOCYTOSIS SLIGHT; TARGET CELLS SLIGHT
[2019-11-09] MEDS: INSULIN REG, HUMAN 100 UNIT/ML 3 ML VIAL (PYX) SUBCUT SCH ×3 (05:59→17:22)
[2019-11-09] MEDS: INSULIN GLARGINE,HUM.REC.ANLOG 1,000 UNIT/10 ML VIAL SUBCUT SCH ×2 (06:09→17:22)
[2019-11-09] MEDS: RINGERS SOLUTION,LACTATED 1,000 ML IV PRN (06:10)
[2019-11-09] MEDS ORDERED: POTASSIUM CHLORIDE 10 MEQ TABLET.ER PO ONE (06:14)
[2019-11-09] MEDS ORDERED: HYDROMORPHONE HCL INJ/PF 2 MG/ML AMPULE IV ONE (06:15)
[2019-11-09] MEDS: LORAZEPAM 1 MG TABLET PO PRN ×2 (09:21→09:28)
[2019-11-09] MEDS ORDERED: MORPHINE SULFATE 10 MG/ML INJ IV ONE (11:15)
[2019-11-09] MEDS ORDERED: POTASSIUM PHOS,M-BASIC-D-BASIC 60 MMOL in NORMAL SALINE 1000 ML 1,000 ML IV ONE (12:00)
[2019-11-09] MEDS ORDERED: 1/2 NORMAL SALINE 1,000 ML IV PRN (12:36)
--- NOTE | 2019-11-09 13:35 | PDOC PROGRESS REPORT ---
Subjective Progress Note for:: 11/09/19 Reason For Visit: HYPERCALCEMIA,ACUTE METABOLIC ENCEPHALOPATHY, Patient in the ICU, extubated, complaining of pain everywhere Physical Exam Vital Signs: Temp Pulse Resp BP Pulse Ox 100.2 F 83 19 132/63 H 95 11/09/19 12:00 11/09/19 12:00 11/09/19 12:00 11/09/19 12:00 11/09/19 12:00 Intake & Output 11/08/19 11/09/19 11/10/19 06:59 06:59 06:59 Intake Total 4512 3562 Output Total 1915 2555 700 Balance 2597 1007 -700 Weight 105.2 kg 105.8 kg General appearance: PRESENT: mild distress Rectal exam: PRESENT: other - Patient examined supine position and then in the right lateral cubitus position. All packing removed. Some soupiness to the deep recesses. Wound irrigated with saline, repacked with moistened gauze. Results Laboratory Results: 11/09/19 04:42 11/09/19 04:42 11/09/19 11/09/19 04:42 04:42 WBC 11.0 H RBC 3.56 L Hgb 10.0 L Hct 30.3 L MCV 85 MCH 28.2 MCHC 33.0 RDW 17.6 H Plt Count 82 L Seg Neutrophils % Not Reportable Sodium 154.0 H Potassium 3.3 L Chloride 124 H Carbon Dioxide 27 Anion Gap 3 L BUN 29 H Creatinine 0.83 Est GFR ( Amer) > 60 Glucose 97 Calcium 9.6 Phosphorus 1.6 L Magnesium 1.7 11/07/19 00:33 Buttocks - Left Gram Stain - Final 11/07/19 00:33 Buttocks - Left Wound Culture - Final Group F Beta Streptococcus Anaerococcus (Peptostrep) Sp. Bacteroides Fragilis Group 11/07/19 00:39 Buttocks - Left Gram Stain - Final 11/07/19 00:39 Buttocks - Left Wound Culture - Final Group F Beta Streptococcus Anaerococcus (Peptostrep) Sp. Bacteroides Fragilis Group 11/05/19 08:59 NT-Pro-B Natriuret Pep 2270 H Impressions: Head CT 11/04/19 00:00 IMPRESSION: No acute intracranial hemorrhage or mass effect. Mild chronic microvascular ischemic change with remote lacunar infarct about the anterior aspect of the left lentiform nucleus extending into the myles radiata. Widespread lucent lesions throughout the calvarium and skull base, concerning for either metastatic disease or multiple myeloma. Correlate. TECHNICAL DOCUMENTATION: Quality ID # 436: Final reports with documentation of one or more dose reduction techniques (e.g., Automated exposure control, adjustment of the mA and/or kV according to patient size, use of iterative reconstruction technique) copyright 2011 [employer]- All Rights Reserved Chest X-Ray 11/06/19 08:04 IMPRESSION: Unchanged radiographic appearance of the chest. Abdomen/Pelvis CT 11/08/19 00:00 IMPRESSION: Left labial wound packing without evidence of complication or adverse trend. Bilateral flank subcutaneous fat stranding asymmetric to the left is a nonspecific finding. No focal fluid collections/ abscesses. Other chronic and incidental findings as detailed above. Assessment & Plan - Diagnosis (1) Abscess of left buttock Is this a current diagnosis for this admission?: Yes Plan: Impression: Patient is 2 days status post aggressive left labial, and perineal debridement, with sepsis reasonably well controlled; no indication for further operative debridement at this time. Recommendations: 1. We will start dressing changes, continue intravenous antibiotics. 2. We will follow with you. - Time Time Spent: 30 to 50 Minutes
[2019-11-09 15:37] LABS: A/G RATIO. 1.1 (0.7-1.7); ALBUMIN 3 2.5 g/dL (2.9-4.4); ALPHA-1-GLOBULIN 0.4 g/dL (0.0-0.4); BETA GLOBULIN 1.2 g/dL (0.7-1.3); GAMMA GLOBULINS 0.2 g/dL (0.4-1.8); IMMUNOGLOBULIN A 485 mg/dL (87-352); MONOCLONAL-SPIKE 0.5 g/dL (Not Observ)
[2019-11-09 16:37] LABS: ALBUMIN UR 60.6 % (.); ALPHA-1-GLOBULIN URINE 0.1 % (.); ALPHA-2-GLOBULIN URINE 7.2 % (.); GAMMA GLOBULIN URINE 4.9 % (.); M-SPIKE % UR Not Observed % (Not Observ); PROTEIN TOTAL URINE 39.8 mg/dL (Not Estab.)
--- NOTE | 2019-11-09 17:24 | PDOC CRITICAL CARE PROG REPORT ---
General Date:: 11/09/19 Hospital Day:: 5 Resuscitation Status: Full Code Events in the past 12 to 24 Hours:: More awake. No abcess by CT Review of systems relevant to events:: ID. Neurologic-now resolved Reason for ICU Addmission:: More awake, no pressors. Able to downgrade. - Medications: Medications reviewed and adjusted accordingly: Yes Vasopressors:: None Sedation:: None Physical Exam Vital Signs: Temp Pulse Resp BP Pulse Ox 100.8 F H 88 20 132/68 H 94 11/09/19 08:00 11/09/19 08:00 11/09/19 08:00 11/09/19 08:00 11/09/19 08:38 Intake & Output 11/08/19 11/09/19 11/10/19 06:59 06:59 06:59 Intake Total 4512 3562 Output Total 1915 2555 225 Balance 2597 1007 -225 Weight 105.2 kg 105.8 kg Weight/Height Weight 105.8 kg Height 5 ft 8 in General appearance: PRESENT: no acute distress, morbidly obese Head exam: PRESENT: atraumatic, normocephalic Eye exam: PRESENT: conjunctiva pink, EOMI, PERRLA. ABSENT: scleral icterus Ear exam: PRESENT: normal external ear exam Mouth exam: PRESENT: dry mucosa Respiratory exam: PRESENT: clear to auscultation paula. ABSENT: rales, rhonchi, wheezes Cardiovascular exam: PRESENT: RRR. ABSENT: diastolic murmur, rubs, systolic murmur GI/Abdominal exam: PRESENT: normal bowel sounds, soft. ABSENT: distended, guarding, mass, organolmegaly, rebound, tenderness Rectal exam: PRESENT: deferred Gentrourinary exam: PRESENT: indwelling catheter, other - L perilabial surgical wound is clean but has some dry yellow fibrinous material toward the base. sOME SURROUNDING ERYTHEMA. Extremities exam: PRESENT: full ROM. ABSENT: calf tenderness, clubbing, pedal edema Musculoskeletal exam: PRESENT: normal inspection Neurological exam: PRESENT: alert, awake, oriented to person, oriented to place, oriented to time, oriented to situation, CN II-XII grossly intact. ABSENT: motor sensory deficit Psychiatric exam: PRESENT: anxious Skin exam: PRESENT: dry, intact, warm. ABSENT: cyanosis, rash Laboratory/Radiographs Laboratory Results: 11/09/19 04:42 11/09/19 04:42 11/09/19 11/09/19 04:42 04:42 WBC 11.0 H RBC 3.56 L Hgb 10.0 L Hct 30.3 L MCV 85 MCH 28.2 MCHC 33.0 RDW 17.6 H Plt Count 82 L Seg Neutrophils % Not Reportable Sodium 154.0 H Potassium 3.3 L Chloride 124 H Carbon Dioxide 27 Anion Gap 3 L BUN 29 H Creatinine 0.83 Est GFR ( Amer) > 60 Glucose 97 Calcium 9.6 Phosphorus 1.6 L Magnesium 1.7 11/07/19 00:33 Buttocks - Left Gram Stain - Final 11/07/19 00:33 Buttocks - Left Wound Culture - Final Group F Beta Streptococcus Anaerococcus (Peptostrep) Sp. Bacteroides Fragilis Group 11/07/19 00:39 Buttocks - Left Gram Stain - Final 11/07/19 00:39 Buttocks - Left Wound Culture - Final Group F Beta Streptococcus Anaerococcus (Peptostrep) Sp. Bacteroides Fragilis Group 11/05/19 08:59 NT-Pro-B Natriuret Pep 2270 H Impressions: Head CT 11/04/19 00:00 IMPRESSION: No acute intracranial hemorrhage or mass effect. Mild chronic microvascular ischemic change with remote lacunar infarct about the anterior aspect of the left lentiform nucleus extending into the myles radiata. Widespread lucent lesions throughout the calvarium and skull base, concerning for either metastatic disease or multiple myeloma. Correlate. TECHNICAL DOCUMENTATION: Quality ID # [id number]: Final reports with documentation of one or more dose reduction techniques (e.g., Automated exposure control, adjustment of the mA and/or kV according to patient size, use of iterative reconstruction technique) copyright 2011 [employer]- All Rights Reserved Chest X-Ray 11/06/19 08:04 IMPRESSION: Unchanged radiographic appearance of the chest. Abdomen/Pelvis CT 11/08/19 00:00 IMPRESSION: Left labial wound packing without evidence of complication or adverse trend. Bilateral flank subcutaneous fat stranding asymmetric to the left is a nonspecific finding. No focal fluid collections/ abscesses. Other chronic and incidental findings as detailed above. All labs, radiographs, diagnostic studies and EKGs were personally reviewed: Yes In addition, reports of radiographic and diagnostic studies were read: Yes Assessment and Plan - Diagnosis (1) Altered mental status Qualifiers: Altered mental status type: delirium Qualified Code(s): R41.0 - Disorientation, unspecified Is this a current diagnosis for this admission?: Yes Plan: Resolved (2) Sepsis Qualifiers: Sepsis acute organ dysfunction status: with acute organ dysfunction Severe sepsis acute organ dysfunction type: encephalopathy Severe sepsis shock status: without septic shock Is this a current diagnosis for this admission?: Yes Plan: No sepsis criteria, no WBC elevation, tachycardia, tachypnea. Slight fever at 100. resolved (3) Atrial fibrillation with RVR Is this a current diagnosis for this admission?: Yes Plan: Now in NSR at 83. Resolved (4) Diabetes mellitus type 2 in nonobese Is this a current diagnosis for this admission?: Yes Plan: Controlled (5) Fever Qualifiers: Fever type: due to other condition Qualified Code(s): R50.81 - Fever presenting with conditions classified elsewhere Is this a current diagnosis for this admission?: Yes Plan: Mild and is likely a residual of her fasciitis. (6) Leukocytosis Qualifiers: Leukocytosis type: unspecified Qualified Code(s): D72.829 - Elevated white blood cell count, unspecified Is this a current diagnosis for this admission?: Yes Plan: Monitor WBC level maribel 11 today. (7) Hypercalcemia Is this a current diagnosis for this admission?: Yes Plan: Light chain amount 324. Calcium level normal but lucencies in skull. Probable multiple myeloma. Dr. Rockwell to see this week. Plan Summary: Await[place] transfer to [facility] [facility] [place] Critical Time Critical Time (minutes): 30 Level of Care: [facility] Anticipated discharge: SNF Within: Other -: 1. The care of a critical patient is a dynamic process. This note is a manufacturers service representative synopsis but static in nature. The timeframe for treatments given in order is not necessarily the actual time these treatments may have been done. 2. This patient requires critical care secondary to ongoing requirements for therapy not offered or safe outside the critical care environment. Transfer to a lower level of care will result in altered life or limb morbidity and mortality. 3. Multidisciplinary rounds completed. 4. ABCDE bundle addressed.
[2019-11-10] MEDS: INSULIN REG, HUMAN 100 UNIT/ML 3 ML VIAL (PYX) SUBCUT SCH ×4 (00:30→18:03)
[2019-11-10] MEDS: MORPHINE SULFATE 10 MG/ML INJ IV PRN (02:05)
[2019-11-10] MEDS: AMPICILLIN SODIUM/SULBACTAM NA 3 GM in NORMAL SALINE 100 ML IV SCH ×4 (02:05→21:53)
[2019-11-10] MEDS: HEPARIN SOD (PORCINE) 5,000 UNIT/ML 1 ML VIAL SUBCUT SCH ×3 (05:16→21:55)
[2019-11-10 06:01] LABS: PHOSPHORUS 2.7 mg/dL (2.5-4.5)
[2019-11-10] MEDS: INSULIN GLARGINE,HUM.REC.ANLOG 1,000 UNIT/10 ML VIAL SUBCUT SCH ×2 (06:11→18:01)
[2019-11-10 08:23] LABS: ALBUMIN 2.4 g/dL (3.5-5.0); ALKALINE PHOSPHATASE 113 U/L (38-126); ASPARTATE AMINO TRANSFERASE 24 U/L (14-36); BILIRUBIN,DIRECT 0.1 mg/dL (0.0-0.4); BILIRUBIN,TOTAL 0.5 mg/dL (0.2-1.3); BLOOD UREA NITROGEN 17 mg/dL (7-20); CALCIUM 8.7 mg/dL (8.4-10.2); CARBON DIOXIDE 26 mmol/L (22-30); GLUCOSE 133 mg/dL (75-110); POTASSIUM 3.4 mmol/L (3.6-5.0); TOTAL PROTEIN 4.8 g/dL (6.3-8.2)
[2019-11-10 08:29] LABS: CHLORIDE 125 mmol/L (98-107)
[2019-11-10 08:30] LABS: ANION GAP 3 (5-19)
[2019-11-10 08:31] LABS: HEMATOCRIT 29.1 % (36.0-47.0); HEMOGLOBIN 9.5 g/dL (12.0-15.5); MEAN CORPUSCULAR HEMOGLOBIN 27.9 pg (27.0-33.4); MEAN CORPUSCULAR HGB CONC 32.6 g/dL (32.0-36.0); MEAN CORPUSCULAR VOLUME 86 fl (80-97); RED CELL DISTRIBUTION WIDTH 17.7 % (11.5-14.0); WHITE BLOOD COUNT 11.3 10^3/uL (4.0-10.5)
[2019-11-10 08:42] LABS: PLATELET COUNT 82 10^3/uL (150-450)
[2019-11-10 08:44] LABS: ABSOLUTE LYMPHOCYTES# (MANUAL) 0.9 10^3/uL (0.5-4.7); ABSOLUTE MONOCYTES # (MANUAL) 0.5 10^3/uL (0.1-1.4); BASOPHILS % (MANUAL) 0 % (0-2); EOSINOPHILS % (MANUAL) 0 % (0-6); LYMPHOCYTES % (MANUAL) 8 % (13-45); MONOCYTES % (MANUAL) 4 % (3-13); SEGMENTED NEUTROPHILS % (MAN) 88 % (42-78); TOTAL CELLS COUNTED 100
[2019-11-10 08:45] LABS: ANISOCYTOSIS 1+; OVALOCYTES SLIGHT; PLATELET COMMENT DECREASED; TEAR DROP CELLS SLIGHT
[2019-11-10 10:36] LABS: IMMUNOGLOBULIN G 239 mg/dL (586-1602); IMMUNOGLOBULIN M 21 mg/dL (26-217)
[2019-11-10] MEDS ORDERED: METOPROLOL TARTRATE 25 MG TABLET PO SCH (13:00)
[2019-11-10] MEDS ORDERED: DEXTROSE 5%-WATER 1000 ML 1,000 ML IV PRN ×2 (13:09→21:10)
--- NOTE | 2019-11-10 13:09 | PDOC PROGRESS REPORT ---
Subjective Progress Note for:: 11/10/19 Subjective:: Patient is awake today. She admits to pain in her buttocks. Denies any shortness of breath at this time. Denies any chest pain either. She is frustrated that she cannot see her and other family members. I have advised her that she can talk to them through the phone. Reason For Visit: HYPERCALCEMIA,ACUTE METABOLIC ENCEPHALOPATHY, Physical Exam Vital Signs: Temp Pulse Resp BP Pulse Ox 97.3 F 114 H 16 99/58 L 95 11/10/19 12:20 11/10/19 12:20 11/10/19 12:20 11/10/19 12:20 11/10/19 12:20 Intake & Output 11/09/19 11/10/19 11/11/19 06:59 06:59 06:59 Intake Total 3562 660 0 Output Total 2555 2750 Balance 1007 -2090 0 Weight 105.8 kg 105.3 kg General appearance: PRESENT: no acute distress, cooperative Neck exam: ABSENT: JVD Respiratory exam: PRESENT: clear to auscultation paula, unlabored. ABSENT: tachypnea, wheezes Cardiovascular exam: PRESENT: irregular rhythm, +S1, +S2. ABSENT: tachycardia GI/Abdominal exam: PRESENT: soft. ABSENT: rebound, rigid, tenderness Extremities exam: PRESENT: pedal edema Neurological exam: PRESENT: alert, awake, oriented to person, oriented to place, oriented to time Psychiatric exam: ABSENT: agitated, anxious Results Laboratory Results: 11/10/19 05:07 11/10/19 05:07 11/05/19 11/10/19 11/10/19 08:59 05:07 05:07 WBC 11.3 H RBC 3.40 L Hgb 9.5 L Hct 29.1 L MCV 86 MCH 27.9 MCHC 32.6 RDW 17.7 H Plt Count 82 L Seg Neutrophils % Not Reportable Sodium Potassium Chloride Carbon Dioxide Anion Gap BUN Creatinine Est GFR ( Amer) Glucose Calcium Phosphorus 2.7 Magnesium 1.5 L Total Bilirubin AST Alkaline Phosphatase Total Protein 5.0 L Albumin 11/10/19 05:07 WBC RBC Hgb Hct MCV MCH MCHC RDW Plt Count Seg Neutrophils % Sodium 154.1 H Potassium 3.4 L Chloride 125 H Carbon Dioxide 26 Anion Gap 3 L BUN 17 Creatinine 0.75 Est GFR ( Amer) > 60 Glucose 133 H Calcium 8.7 Phosphorus Magnesium Cancelled Total Bilirubin 0.5 AST 24 Alkaline Phosphatase 113 Total Protein 4.8 L Albumin 2.4 L 11/05/19 08:59 NT-Pro-B Natriuret Pep 2270 H Impressions: Head CT 11/04/19 00:00 IMPRESSION: No acute intracranial hemorrhage or mass effect. Mild chronic microvascular ischemic change with remote lacunar infarct about the anterior aspect of the left lentiform nucleus extending into the myles radiata. Widespread lucent lesions throughout the calvarium and skull base, concerning for either metastatic disease or multiple myeloma. Correlate. TECHNICAL DOCUMENTATION: Quality ID # 436: Final reports with documentation of one or more dose reduction techniques (e.g., Automated exposure control, adjustment of the mA and/or kV according to patient size, use of iterative reconstruction technique) copyright 2011 [employer]- All Rights Reserved Chest X-Ray 11/06/19 08:04 IMPRESSION: Unchanged radiographic appearance of the chest. Abdomen/Pelvis CT 11/08/19 00:00 IMPRESSION: Left labial wound packing without evidence of complication or adverse trend. Bilateral flank subcutaneous fat stranding asymmetric to the left is a nonspecific finding. No focal fluid collections/ abscesses. Other chronic and incidental findings as detailed above. Assessment and Plan - Diagnosis (1) Necrotizing fasciitis of pelvic region and thigh Is this a current diagnosis for this admission?: Yes Plan: Polymicrobial necrotizing fasciitis of her buttocks and perineal region. Status post aggressive left labial, and perineal debridement on 11/06/2019. Surgery is following and currently states no indication for further debridement. Wound culture is growing Bacteroides, Peptostreptococcus and group F beta strep all of which are recommended for treatment with Unasyn. We will continue Unasyn. Monitor leukocytosis. Severe sepsis seems to have resolved at this point. Wound dressing as per surgery. (2) Hypernatremia Is this a current diagnosis for this admission?: Yes Plan: Likely dehydrated state. No improvement on half-normal saline as sodium is 154 this morning. Patient was net -2 L yesterday. I will check urine sodium and urine potassium to calculate urine free water losses to help determine adequate hydration rate. Free to water deficit is 3 L. In the meantime, will discontinue half-normal saline and put patient on D5W at 165 cc/h and check frequent BMP. Adjust rate as needed. Goal correction of 10-12 /24hrs (3) Hypercalcemia Is this a current diagnosis for this admission?: Yes Plan: Hypercalcemia of 19 on admission. Calcium has normalized now after administration of zoledronic acid and salmon calcitonin during first 2 days of admission. Calvarium lesions noted on head CT raising high suspicion for multiple myeloma. SPEP and UPEP pending. Lambda free light chains elevated. I will consult oncology for their opinion. PTH, vitamin D 25, vitamin D 125 have been appropriately low. Vitamin A and PTH related peptide pending. (4) Uncontrolled type 2 diabetes mellitus Qualifiers: Glycemic state: with hyperglycemia Qualified Code(s): E11.65 - Type 2 diabetes mellitus with hyperglycemia Is this a current diagnosis for this admission?: Yes Plan: Initially presented with HHN K and was on insulin drip which has resolved. Currently blood sugars look better on Lantus 20 units twice a day. Continue sliding scale. Adjust insulin regimen as needed none the patient is on a diet. (5) Acute metabolic encephalopathy Is this a current diagnosis for this admission?: Yes Plan: Obtunded on admission secondary to hypercalcemia and severe sepsis. Currently resolved. Patient is fully awake and alert. (6) Atrial fibrillation with RVR Is this a current diagnosis for this admission?: Yes Plan: This is a one-time episode of paroxysmal atrial fibrillation that was aggravated by severe sepsis. No prior history and not longstanding. Currently resolved and patient is in sinus rhythm. Will defer on anticoagulation for now. (7) Cardiomegaly Is this a current diagnosis for this admission?: Yes Plan: Echo shows normal ejection fraction and no significant diastolic dysfunction. No history of CHF. (8) Acute kidney injury (nontraumatic) Is this a current diagnosis for this admission?: Yes Plan: Secondary to hypercalcemia and sepsis. Currently resolved. - Time Time Spent with patient: 15-24 minutes
--- NOTE | 2019-11-10 13:37 | PDOC PROGRESS REPORT ---
Subjective Progress Note for:: 11/10/19 Reason For Visit: HYPERCALCEMIA,ACUTE METABOLIC ENCEPHALOPATHY, Physical Exam Vital Signs: Temp Pulse Resp BP Pulse Ox 97.3 F 114 H 16 99/58 L 95 11/10/19 12:20 11/10/19 12:20 11/10/19 12:20 11/10/19 12:20 11/10/19 12:20 Intake & Output 11/09/19 11/10/19 11/11/19 06:59 06:59 06:59 Intake Total 3562 660 0 Output Total 2555 2750 Balance 1007 -2090 0 Weight 105.8 kg 105.3 kg Results Laboratory Results: 11/10/19 05:07 11/10/19 05:07 11/05/19 11/10/19 11/10/19 08:59 05:07 05:07 WBC 11.3 H RBC 3.40 L Hgb 9.5 L Hct 29.1 L MCV 86 MCH 27.9 MCHC 32.6 RDW 17.7 H Plt Count 82 L Seg Neutrophils % Not Reportable Sodium Potassium Chloride Carbon Dioxide Anion Gap BUN Creatinine Est GFR ( Amer) Glucose Calcium Phosphorus 2.7 Magnesium 1.5 L Total Bilirubin AST Alkaline Phosphatase Total Protein 5.0 L Albumin 11/10/19 05:07 WBC RBC Hgb Hct MCV MCH MCHC RDW Plt Count Seg Neutrophils % Sodium 154.1 H Potassium 3.4 L Chloride 125 H Carbon Dioxide 26 Anion Gap 3 L BUN 17 Creatinine 0.75 Est GFR ( Amer) > 60 Glucose 133 H Calcium 8.7 Phosphorus Magnesium Cancelled Total Bilirubin 0.5 AST 24 Alkaline Phosphatase 113 Total Protein 4.8 L Albumin 2.4 L 11/05/19 10:00 Blood Blood Culture - Final NO GROWTH IN 5 DAYS 11/05/19 08:59 NT-Pro-B Natriuret Pep 2270 H Impressions: Head CT 11/04/19 00:00 IMPRESSION: No acute intracranial hemorrhage or mass effect. Mild chronic microvascular ischemic change with remote lacunar infarct about the anterior aspect of the left lentiform nucleus extending into the myles radiata. Widespread lucent lesions throughout the calvarium and skull base, concerning for either metastatic disease or multiple myeloma. Correlate. TECHNICAL DOCUMENTATION: Quality ID # 436: Final reports with documentation of one or more dose reduction techniques (e.g., Automated exposure control, adjustment of the mA and/or kV according to patient size, use of iterative reconstruction technique) copyright 2011 [employer]- All Rights Reserved Chest X-Ray 11/06/19 08:04 IMPRESSION: Unchanged radiographic appearance of the chest. Abdomen/Pelvis CT 11/08/19 00:00 IMPRESSION: Left labial wound packing without evidence of complication or adverse trend. Bilateral flank subcutaneous fat stranding asymmetric to the left is a nonspecific finding. No focal fluid collections/ abscesses. Other chronic and incidental findings as detailed above. Assessment & Plan - Diagnosis (1) Abscess of left buttock Is this a current diagnosis for this admission?: Yes - Plan Summary Plan Summary: This is a 64-year-old diabetic female status post incision and drainage with debridement of a large left buttock and labial abscess. The patient is doing reasonably well today. I have changed her dressing at the bedside. The wound is without obvious necrosis or purulence. The patient will need twice daily damp to dry dressing changes at home. I will consult social work to arrange for this. The patient should follow-up with [facility] in 1 to 2 weeks. Surgery will sign off at this time. Please renotify with any questions or concerns.
[2019-11-10] MEDS ORDERED: 1/2 NORMAL SALINE 500 ML IV ONE (19:30)
[2019-11-10 20:04] LABS: BLOOD UREA NITROGEN 14 mg/dL (7-20); GLUCOSE 257 mg/dL (75-110)
[2019-11-10 20:10] LABS: CARBON DIOXIDE 28 mmol/L (22-30); CHLORIDE 117 mmol/L (98-107)
[2019-11-10 20:27] LABS: ANION GAP 3 (5-19)
[2019-11-10] MEDS ORDERED: POTASSIUM CHLORIDE 20 MEQ/50 ML RTU IV SCH (21:15)
[2019-11-10] MEDS: DEXTROSE 5%-WATER 1000 ML 1,000 ML with POTASSIUM CHLORIDE 20 MEQ IV PRN ×2 (21:53)
[2019-11-10] MEDS: POTASSI CL 20 MEQ/50 ML RIDER 20 MEQ/50 ML RTUPB IV SCH (21:54)
[2019-11-10] MEDS ORDERED: POTASSIUM CHLORIDE 10 MEQ TABLET.ER PO ONE (22:00)
[2019-11-11] MEDS: POTASSI CL 20 MEQ/50 ML RIDER 20 MEQ/50 ML RTUPB IV SCH (00:32)
[2019-11-11] MEDS: INSULIN REG, HUMAN 100 UNIT/ML 3 ML VIAL (PYX) SUBCUT SCH ×4 (00:32→22:45)
[2019-11-11] MEDS: AMPICILLIN SODIUM/SULBACTAM NA 3 GM in NORMAL SALINE 100 ML IV SCH ×4 (03:20→21:53)
[2019-11-11] MEDS: MORPHINE SULFATE 10 MG/ML INJ IV PRN (03:21)
[2019-11-11] MEDS: DEXTROSE 5%-WATER 1000 ML 1,000 ML with POTASSIUM CHLORIDE 20 MEQ IV PRN ×6 (04:22→17:13)
[2019-11-11] MEDS: INSULIN GLARGINE,HUM.REC.ANLOG 1,000 UNIT/10 ML VIAL SUBCUT SCH ×2 (06:00→22:45)
[2019-11-11] MEDS: HEPARIN SOD (PORCINE) 5,000 UNIT/ML 1 ML VIAL SUBCUT SCH ×3 (06:06→21:53)
[2019-11-11 07:05] LABS: VITAMIN A 13.2 ug/dL (22.0-69.5)
[2019-11-11 07:06] LABS: ABSOLUTE EOSINOPHILS # (AUTO) 0.1 10^3/uL (0.0-0.6); ABSOLUTE LYMPHOCYTES (AUTO) 1.2 10^3/uL (0.5-4.7); ABSOLUTE MONOCYTES (AUTO) 0.4 10^3/uL (0.1-1.4); ABSOLUTE NEUT (AUTO) 13.8 10^3/uL (1.7-8.2); BASOPHILS % (AUTO) 0.1 % (0-2); EOSINOPHILS % (AUTO) 0.7 % (0-6); HEMATOCRIT 27.3 % (36.0-47.0); LYMPHOCYTES % (AUTO) 7.8 % (13-45); MEAN CORPUSCULAR HEMOGLOBIN 27.9 pg (27.0-33.4); MEAN CORPUSCULAR VOLUME 85 fl (80-97); MONOCYTES % (AUTO) 2.7 % (3-13); RED BLOOD COUNT 3.23 10^6/uL (3.72-5.28); RED CELL DISTRIBUTION WIDTH 18.1 % (11.5-14.0); SEGMENTED NEUTROPHILS % (AUTO) 88.7 % (42-78); TOTAL CELLS COUNTED % (AUTO) 100 %; WHITE BLOOD COUNT 15.6 10^3/uL (4.0-10.5)
[2019-11-11 07:22] LABS: ALBUMIN 2.3 g/dL (3.5-5.0); ALKALINE PHOSPHATASE 105 U/L (38-126); ASPARTATE AMINO TRANSFERASE 20 U/L (14-36); BILIRUBIN,TOTAL 0.5 mg/dL (0.2-1.3); BLOOD UREA NITROGEN 11 mg/dL (7-20); CALCIUM 7.9 mg/dL (8.4-10.2); CARBON DIOXIDE 25 mmol/L (22-30); GLUCOSE 189 mg/dL (75-110); POTASSIUM 3.6 mmol/L (3.6-5.0); TOTAL PROTEIN 4.8 g/dL (6.3-8.2)
[2019-11-11 07:27] LABS: CHLORIDE 114 mmol/L (98-107)
[2019-11-11 07:32] LABS: ANION GAP 5 (5-19)
[2019-11-11 07:54] LABS: PLATELET COUNT 85 10^3/uL (150-450)
--- NOTE | 2019-11-11 09:07 | PDOC CONSULTATION ---
Consultation Consult Date: 11/11/19 Attending physician:: GWEN PANIAGUA Provider Consulted: RAMYA MCKOY Consult reason:: Likely multiple myeloma History of Present Illness Admission Date/PCP: 11/05/19 00:00 INES HUNT MD History of Present Illness: MELISSA SAM is a 64 year old female with likely multiple myeloma, she came in with confusion, lethargy was found out of it for 5 days prior to admission, initially was very confused and combative, had a small sore on the buttock, ultimately went into respiratory failure and other issues and was transferred to the ICU, unfortunately they are in the buttock region that small boil was slightly debrided and was much more extensive and ultimately was found to be necrotizing fasciitis. She had extensive debridement and has been followed closely by surgery and had a prolonged ICU stay because of that. Confusion has improved, prior to coming in she was not really talking in for several days through the admission she was quite obtunded. She is now talkative, and upon admission she had a CT of the head noncontrasted which showed multiple lytic bone lesions consistent with myeloma, she was hypercalcemic with calcium levels of 19, she was given bisphosphonate and IV fluids and now the calcium level is down to 8. She had a myeloma work-up done including SPEP which showed a M spike of 0.5, however light chain was 300. Past Medical History Cardiac Medical History: Reports: Hypertension Denies: Coronary Artery Disease, Myocardial Infarction, Hyperlipidema Pulmonary Medical History: Reports: Chronic Obstructive Pulmonary Disease (COPD) Denies: Asthma, Pneumonia EENT Medical History: Denies: Cataracts, Ears - Hearing aids Neurological Medical History: Denies: Hemorrhagic CVA, Ischemic CVA, Seizures Endocrine Medical History: Reports: Diabetes Mellitus Type 2 Denies: Diabetes Mellitus Type 1, Hyperthyroidism, Hypothyroidism Renal/ Medical History: Denies: Chronic Kidney Disease, Nephrolithiasis Malignancy Medical History: Reports: None GI Medical History: Denies: Cirrhosis, Hepatitis Musculoskeltal Medical History: Denies: Arthritis, Fibromyalgia Skin Medical History: Denies: Eczema, Psoriasis Psychiatric Medical History: Reports: Depression, Tobacco Dependency Denies: Alcohol Dependency, Substance Abuse Traumatic Medical History: Reports: None Hematology: Denies: Anemia, Bleeding Tendencies Infectious Medical History: Reports: None Past Surgical History Past Surgical History: Reports: Cholecystectomy, Hysterectomy Social History Lives with: Family, Spouse/Significant other Smoking Status: Current Every Day Smoker Electronic Cigarette use?: No Frequency of Alcohol Use: None Hx Recreational Drug Use: No Drugs: None Hx Prescription Drug Abuse: No - Advance Directive Resuscitation Status: Full Code Family History Family History: Reviewed & Not Pertinent Parental Family History Reviewed: Yes Children Family History Reviewed: Yes Sibling(s) Family History Reviewed.: Yes Medication/Allergy Home Medications: Amlodipine Besylate/Benazepril [Amlodipine-Benazepril 10-40 mg] 1 cap PO QPM 11/05/19 Gabapentin [Neurontin] 800 mg PO Q8 11/05/19 Hydrocodone/Acetaminophen [[place] 10-325 mg Tablet] 2 tab PO Q8 11/05/19 Lorazepam [Ativan 1 mg Tablet] 2 mg PO Q6HP PRN 11/05/19 Sulfamethoxazole/Trimethoprim [Bactrim Ds Tablet] 1 tab PO BID 11/05/19 Allergies/Adverse Reactions: No Known Allergies Allergy (Unverified 11/05/19 03:41) Review of Systems Constitutional: ABSENT: chills, fever(s), headache(s), weight gain, weight loss Eyes: ABSENT: visual disturbances Ears: ABSENT: hearing changes Cardiovascular: ABSENT: chest pain, dyspnea on exertion, edema, orthropnea, palpitations Respiratory: ABSENT: cough, hemoptysis Gastrointestinal: ABSENT: abdominal pain, constipation, diarrhea, hematemesis, hematochezia, nausea, vomiting Genitourinary: ABSENT: dysuria, hematuria Musculoskeletal: ABSENT: joint swelling Integumentary: ABSENT: rash, wounds Neurological: ABSENT: abnormal gait, abnormal speech, confusion, dizziness, focal weakness, syncope Psychiatric: ABSENT: anxiety, depression, homidical ideation, suicidal ideation Endocrine: ABSENT: cold intolerance, heat intolerance, polydipsia, polyuria Hematologic/Lymphatic: ABSENT: easy bleeding, easy bruising Physical Exam Vital Signs: Temp Pulse Resp BP Pulse Ox 97.8 F 69 20 139/88 H 95 11/11/19 03:04 11/11/19 07:00 11/11/19 03:04 11/11/19 03:04 11/11/19 03:04 Intake & Output 11/10/19 11/11/19 11/12/19 06:59 06:59 06:59 Intake Total 660 5739 Output Total 2750 2325 Balance -2090 1154 Weight 105.3 kg 109.9 kg General appearance: PRESENT: no acute distress, well-developed, well-nourished Head exam: PRESENT: atraumatic, normocephalic Eye exam: PRESENT: conjunctiva pink, EOMI, PERRLA. ABSENT: scleral icterus Ear exam: PRESENT: normal external ear exam Mouth exam: PRESENT: moist, tongue midline Neck exam: ABSENT: carotid bruit, JVD, lymphadenopathy, thyromegaly Respiratory exam: PRESENT: clear to auscultation paula. ABSENT: rales, rhonchi, wheezes Cardiovascular exam: PRESENT: RRR. ABSENT: diastolic murmur, rubs, systolic murmur Pulses: PRESENT: normal dorsalis pedis pul Vascular exam: PRESENT: normal capillary refill GI/Abdominal exam: PRESENT: normal bowel sounds, soft. ABSENT: distended, guarding, mass, organolmegaly, rebound, tenderness Rectal exam: PRESENT: deferred Extremities exam: PRESENT: full ROM. ABSENT: calf tenderness, clubbing, pedal edema Neurological exam: PRESENT: alert, awake, oriented to person, oriented to place, oriented to time, oriented to situation, CN II-XII grossly intact. ABSENT: motor sensory deficit Psychiatric exam: PRESENT: appropriate affect, normal mood. ABSENT: homicidal ideation, suicidal ideation Skin exam: PRESENT: dry, intact, warm. ABSENT: cyanosis, rash Results Laboratory Results: 11/11/19 05:57 11/11/19 05:57 11/05/19 11/05/19 11/10/19 08:59 08:59 19:29 WBC RBC Hgb Hct MCV MCH MCHC RDW Plt Count Seg Neutrophils % Sodium 148.0 H Potassium 3.0 L* Chloride 117 H Carbon Dioxide 28 Anion Gap 3 L BUN 14 Creatinine 0.75 Est GFR ( Amer) > 60 Glucose 257 H Calcium 8.0 L Magnesium Total Bilirubin AST Alkaline Phosphatase Total Protein 5.0 L Albumin Vitamin A 13.2 L 11/11/19 11/11/19 05:57 05:57 WBC 15.6 H RBC 3.23 L Hgb 9.0 L Hct 27.3 L MCV 85 MCH 27.9 MCHC 33.0 RDW 18.1 H Plt Count 85 L Seg Neutrophils % 88.7 H Sodium 143.8 Potassium 3.6 Chloride 114 H Carbon Dioxide 25 Anion Gap 5 BUN 11 Creatinine 0.67 Est GFR ( Amer) > 60 Glucose 189 H Calcium 7.9 L Magnesium 1.3 L Total Bilirubin 0.5 AST 20 Alkaline Phosphatase 105 Total Protein 4.8 L Albumin 2.3 L Vitamin A 11/05/19 14:21 Blood Blood Culture - Final NO GROWTH IN 5 DAYS 11/05/19 10:00 Blood Blood Culture - Final NO GROWTH IN 5 DAYS 11/05/19 08:59 NT-Pro-B Natriuret Pep 2270 H Impressions: Head CT 11/04/19 00:00 IMPRESSION: No acute intracranial hemorrhage or mass effect. Mild chronic microvascular ischemic change with remote lacunar infarct about the anterior aspect of the left lentiform nucleus extending into the myles radiata. Widespread lucent lesions throughout the calvarium and skull base, concerning for either metastatic disease or multiple myeloma. Correlate. TECHNICAL DOCUMENTATION: Quality ID # 436: Final reports with documentation of one or more dose reduction techniques (e.g., Automated exposure control, adjustment of the mA and/or kV according to patient size, use of iterative reconstruction technique) copyright 2011 [employer]- All Rights Reserved Chest X-Ray 11/06/19 08:04 IMPRESSION: Unchanged radiographic appearance of the chest. Abdomen/Pelvis CT 11/08/19 00:00 IMPRESSION: Left labial wound packing without evidence of complication or adverse trend. Bilateral flank subcutaneous fat stranding asymmetric to the left is a nonspecific finding. No focal fluid collections/ abscesses. Other chronic and incidental findings as detailed above. Assessment & Plan - Diagnosis (1) Myeloma Qualifiers: Multiple myeloma remission status: not in remission Qualified Code(s): C90.00 - Multiple myeloma not having achieved remission Is this a current diagnosis for this admission?: Yes Plan: Likely diagnosis of myeloma but bone marrow biopsy needs to be done to confirm this. We will do skeletal survey today, however given her prolonged hospitalization and weakness she is not a candidate for therapy right now. I have asked for hospitalist team to give her 1 dose of steroids to see how she responds to that. Ultimately she will need to go to rehab and we will see her as an outpatient and work her up further as an outpatient. - Time Time Spent: Greater than 70 Minutes
[2019-11-11] MEDS: MAGNESIUM OXIDE 400 MG TABLET PO SCH (09:27)
--- NOTE | 2019-11-11 09:55 | PDOC PROGRESS REPORT ---
Subjective Progress Note for:: 11/11/19 Subjective:: 11/11/2019. No acute events overnight. Patient currently resting bed no apparent distress, complaining of groin pain, alert and oriented x2, cooperative with physical examination, answering questions properly, denies any fever, chills, nausea, vomiting, diarrhea, constipation or any urinary symptoms. Reason For Visit: HYPERCALCEMIA,ACUTE METABOLIC ENCEPHALOPATHY, Physical Exam Vital Signs: Temp Pulse Resp BP Pulse Ox 97.6 F 74 18 143/62 H 98 11/11/19 08:09 11/11/19 08:09 11/11/19 08:09 11/11/19 08:09 11/11/19 08:09 Intake & Output 11/10/19 11/11/19 11/12/19 06:59 06:59 06:59 Intake Total 660 3579 Output Total 2750 2325 Balance -2090 1254 Weight 105.3 kg 109.9 kg General appearance: PRESENT: no acute distress, obese, well-developed, well- nourished Head exam: PRESENT: atraumatic, normocephalic Respiratory exam: PRESENT: clear to auscultation paula. ABSENT: rales, rhonchi, wheezes Cardiovascular exam: PRESENT: RRR. ABSENT: diastolic murmur, rubs, systolic murmur GI/Abdominal exam: PRESENT: normal bowel sounds, soft. ABSENT: distended, guarding, mass, organolmegaly, rebound, tenderness Gentrourinary exam: PRESENT: other - Wound looks clean, no sign of infection. Extremities exam: PRESENT: full ROM. ABSENT: calf tenderness, clubbing, pedal edema Neurological exam: PRESENT: alert, awake, oriented to person, oriented to place, CN II-XII grossly intact. ABSENT: motor sensory deficit Skin exam: PRESENT: dry, intact, warm. ABSENT: cyanosis, rash Results Laboratory Results: 11/11/19 05:57 11/11/19 05:57 11/05/19 11/05/19 11/10/19 08:59 08:59 19:29 WBC RBC Hgb Hct MCV MCH MCHC RDW Plt Count Seg Neutrophils % Sodium 148.0 H Potassium 3.0 L* Chloride 117 H Carbon Dioxide 28 Anion Gap 3 L BUN 14 Creatinine 0.75 Est GFR ( Amer) > 60 Glucose 257 H Calcium 8.0 L Magnesium Total Bilirubin AST Alkaline Phosphatase Total Protein 5.0 L Albumin Vitamin A 13.2 L 11/11/19 11/11/19 05:57 05:57 WBC 15.6 H RBC 3.23 L Hgb 9.0 L Hct 27.3 L MCV 85 MCH 27.9 MCHC 33.0 RDW 18.1 H Plt Count 85 L Seg Neutrophils % 88.7 H Sodium 143.8 Potassium 3.6 Chloride 114 H Carbon Dioxide 25 Anion Gap 5 BUN 11 Creatinine 0.67 Est GFR ( Amer) > 60 Glucose 189 H Calcium 7.9 L Magnesium 1.3 L Total Bilirubin 0.5 AST 20 Alkaline Phosphatase 105 Total Protein 4.8 L Albumin 2.3 L Vitamin A 11/05/19 14:21 Blood Blood Culture - Final NO GROWTH IN 5 DAYS 11/05/19 10:00 Blood Blood Culture - Final NO GROWTH IN 5 DAYS 11/05/19 08:59 NT-Pro-B Natriuret Pep 2270 H Impressions: Head CT 11/04/19 00:00 IMPRESSION: No acute intracranial hemorrhage or mass effect. Mild chronic microvascular ischemic change with remote lacunar infarct about the anterior aspect of the left lentiform nucleus extending into the myles radiata. Widespread lucent lesions throughout the calvarium and skull base, concerning for either metastatic disease or multiple myeloma. Correlate. TECHNICAL DOCUMENTATION: Quality ID # 436: Final reports with documentation of one or more dose reduction techniques (e.g., Automated exposure control, adjustment of the mA and/or kV according to patient size, use of iterative reconstruction technique) copyright 2011 [employer]- All Rights Reserved Chest X-Ray 11/06/19 08:04 IMPRESSION: Unchanged radiographic appearance of the chest. Abdomen/Pelvis CT 11/08/19 00:00 IMPRESSION: Left labial wound packing without evidence of complication or adverse trend. Bilateral flank subcutaneous fat stranding asymmetric to the left is a nonspecific finding. No focal fluid collections/ abscesses. Other chronic and incidental findings as detailed above. Assessment and Plan - Diagnosis (1) Necrotizing fasciitis of pelvic region and thigh Is this a current diagnosis for this admission?: Yes Plan: Polymicrobial necrotizing fasciitis of her buttocks and perineal region. Status post aggressive left labial, and perineal debridement on 11/06/2019. Surgery is following and currently states no indication for further debridement. Wound culture is growing Bacteroides, Peptostreptococcus and group F beta strep all of which are recommended for treatment with Unasyn. Continue Unasyn. Monitor leukocytosis. Wound dressing as per surgery. We will consult ID for duration of antibiotics. (2) Acute metabolic encephalopathy Is this a current diagnosis for this admission?: Yes Plan: Obtunded on admission secondary to hypercalcemia and severe sepsis. Currently resolved. Patient is fully awake and alert oriented x3. Unknown baseline. (3) Atrial fibrillation with RVR Is this a current diagnosis for this admission?: Yes Plan: This is a one-time episode of paroxysmal atrial fibrillation that was aggravated by severe sepsis. No prior history and not longstanding. Currently resolved and patient is in sinus rhythm. Will defer on anticoagulation for now. (4) Cardiomegaly Is this a current diagnosis for this admission?: Yes Plan: Denies any anginal symptoms. No history of CAD. Echo shows normal ejection fraction and no significant diastolic dysfunction. No history of CHF. (5) Hypercalcemia Is this a current diagnosis for this admission?: Yes Plan: Currently resolved. Likely due to underlying malignancy possibly multiple myeloma. Hypercalcemia of 19 on admission. Received zoledronic acid and salmon calcitonin during first 2 days of admission. Calvarium lesions noted on head CT raising high suspicion for multiple myeloma. SPEP and UPEP pending. Lambda free light chains elevated. PTH, vitamin D 25, vitamin D 125 have been appropriately low. Vitamin A and PTH related peptide pending. Oncology on board. Skeletal survey was been ordered. Recommendation is outpatient chemotherapy once patient is discharged from the hospital. Monitor calcium level. Follow-up skeletal survey. (6) Hypernatremia Is this a current diagnosis for this admission?: Yes Plan: Resolved. This was likely dehydrated state. DC IV fluids. Await p.o. intake. BMP tomorrow. (7) Uncontrolled type 2 diabetes mellitus Qualifiers: Glycemic state: with hyperglycemia Qualified Code(s): E11.65 - Type 2 diabetes mellitus with hyperglycemia Is this a current diagnosis for this admission?: Yes Plan: Controlled. Initially presented with HHN K and was on insulin drip which has resolved. Continue basal, sliding scale and correctional insulin. Hypoglycemia protocol. Accu-Cheks. Adjust insulin dosage as needed. Outpatient PCP follow-up. (8) Acute kidney injury (nontraumatic) Is this a current diagnosis for this admission?: Yes Plan: Secondary to hypercalcemia and sepsis. Currently resolved. Monitor volume status and electrolytes replace as needed. Avoid nephrotoxic meds. (9) Physical debility Is this a current diagnosis for this admission?: Yes Plan: Due to underlying infectious process and malignancy. Continue PT OT. Plan will be for patient to be transferred to rehab for continuation of physical therapy. Discharge planning has been consulted. (10) Myeloma Qualifiers: Multiple myeloma remission status: not in remission Qualified Code(s): C90.00 - Multiple myeloma not having achieved remission Is this a current diagnosis for this admission?: Yes Plan: Given clinical presentation, lab and imaging findings likely multiple myeloma. Oncology on board. Skeletal survey has been ordered. Plan is for chemotherapy as outpatient.
[2019-11-11] MEDS ORDERED: METHYLPREDNISOLONE INJ 40 MG/1 ML SDV IV ONE (10:00)
[2019-11-11] MEDS ORDERED: DEXTROSE 50%-WATER 25 GM/50 ML DISP.SYRIN IV PRN ×2 (10:02)
[2019-11-11] MEDS ORDERED: DEXTROSE 40% GEL 15 GM TUBE PO PRN ×2 (10:02)
[2019-11-11] MEDS ORDERED: GLUCAGON,HUMAN RECOMB 1 MG INJ IM PRN (10:02)
[2019-11-11] MEDS: INSULIN LISPRO 100 UNIT/ML 3 ML VIAL SUBCUT SCH ×2 (11:45→17:24)
--- NOTE | 2019-11-11 16:55 | RADIOLOGY REPORT (SQ) ---
EXAM DESCRIPTION: BONE SURVEY COMPLETE IMAGES COMPLETED DATE/TIME: 11/11/2019 3:41 pm REASON FOR STUDY: myeloma COMPARISON: None. TECHNIQUE: Images of the axial and proximal appendicular skeleton are obtained, along with lateral s kull and frontal chest films. LIMITATIONS: None. FINDINGS: AP CHEST: No bony findings. Lungs are clear. LATERAL SKULL: Multiple small lytic lesions in the calvarium. AP BOTH HUMERI: No worrisome bone lesions. TWO-VIEW LUMBAR SPINE: Limited. TWO-VIEW THORACIC SPINE: No worrisome bone lesions. AP PELVIS: No worrisome bone lesions. AP BOTH FEMURS: Cannot exclude a small lytic lesion in each proximal femoral diaphysis. OTHER: No other significant finding. IMPRESSION: Findings as described. There appear to be multiple small lytic lesions in the calvarium particularly. TECHNICAL DOCUMENTATION: JOB ID: [id number] 2010 [employer]- All Rights Reserved Reading location - IP/workstation name: [email or web address]
[2019-11-11] MEDS ORDERED: INSULIN GLARGINE,HUM.REC.ANLOG 1,000 UNIT/10 ML VIAL SUBCUT SCH (18:00)
[2019-11-11] MEDS ORDERED: INSULIN REG, HUMAN 100 UNIT/ML 3 ML VIAL (PYX) SUBCUT SCH (22:00)
[2019-11-12] MEDS: AMPICILLIN SODIUM/SULBACTAM NA 3 GM in NORMAL SALINE 100 ML IV SCH ×2 (03:26→09:22)
[2019-11-12] MEDS: MORPHINE SULFATE 10 MG/ML INJ IV PRN ×3 (03:32→17:35)
[2019-11-12] MEDS: HEPARIN SOD (PORCINE) 5,000 UNIT/ML 1 ML VIAL SUBCUT SCH ×3 (05:41→21:51)
[2019-11-12] MEDS: INSULIN REG, HUMAN 100 UNIT/ML 3 ML VIAL (PYX) SUBCUT SCH ×4 (08:04→21:51)
[2019-11-12 08:09] LABS: HEMATOCRIT 26.2 % (36.0-47.0); HEMOGLOBIN 8.5 g/dL (12.0-15.5); MEAN CORPUSCULAR HEMOGLOBIN 27.3 pg (27.0-33.4); MEAN CORPUSCULAR HGB CONC 32.3 g/dL (32.0-36.0); MEAN CORPUSCULAR VOLUME 85 fl (80-97); RED CELL DISTRIBUTION WIDTH 17.6 % (11.5-14.0); WHITE BLOOD COUNT 15.2 10^3/uL (4.0-10.5)
--- NOTE | 2019-11-12 08:23 | PDOC PROGRESS REPORT ---
Subjective Progress Note for:: 11/12/19 Subjective:: Patient stood up yesterday because of the severe wound on the buttock region today, still very weak because of that, still having a lot of pain. Nursing did speak with daughter about current status of myeloma, skeletal survey does indicate skull lesions but not much other disease Reason For Visit: HYPERCALCEMIA,ACUTE METABOLIC ENCEPHALOPATHY, Physical Exam Vital Signs: Temp Pulse Resp BP Pulse Ox 98.0 F 73 18 149/53 H 89 L 11/12/19 07:52 11/12/19 07:52 11/12/19 07:52 11/12/19 07:52 11/12/19 07:52 Intake & Output 11/11/19 11/12/19 11/13/19 06:59 06:59 06:59 Intake Total 3579 4293 Output Total 2325 2555 Balance 1254 1738 Weight 109.9 kg 111.9 kg General appearance: PRESENT: no acute distress, well-developed, well-nourished Head exam: PRESENT: atraumatic, normocephalic Eye exam: PRESENT: conjunctiva pink, EOMI, PERRLA. ABSENT: scleral icterus Ear exam: PRESENT: normal external ear exam Mouth exam: PRESENT: moist, tongue midline Neck exam: ABSENT: carotid bruit, JVD, lymphadenopathy, thyromegaly Respiratory exam: PRESENT: clear to auscultation paula. ABSENT: rales, rhonchi, wheezes Cardiovascular exam: PRESENT: RRR. ABSENT: diastolic murmur, rubs, systolic murmur Pulses: PRESENT: normal dorsalis pedis pul Vascular exam: PRESENT: normal capillary refill GI/Abdominal exam: PRESENT: normal bowel sounds, soft. ABSENT: distended, guarding, mass, organolmegaly, rebound, tenderness Rectal exam: PRESENT: deferred Extremities exam: PRESENT: full ROM. ABSENT: calf tenderness, clubbing, pedal edema Neurological exam: PRESENT: alert, awake, oriented to person, oriented to place, oriented to time, oriented to situation, CN II-XII grossly intact. ABSENT: motor sensory deficit Psychiatric exam: PRESENT: appropriate affect, normal mood. ABSENT: homicidal ideation, suicidal ideation Skin exam: PRESENT: dry, intact, warm. ABSENT: cyanosis, rash Results Laboratory Results: 11/05/19 08:59 NT-Pro-B Natriuret Pep 2270 H Impressions: Head CT 11/04/19 00:00 IMPRESSION: No acute intracranial hemorrhage or mass effect. Mild chronic microvascular ischemic change with remote lacunar infarct about the anterior aspect of the left lentiform nucleus extending into the myles radiata. Widespread lucent lesions throughout the calvarium and skull base, concerning for either metastatic disease or multiple myeloma. Correlate. TECHNICAL DOCUMENTATION: Quality ID # 436: Final reports with documentation of one or more dose reduction techniques (e.g., Automated exposure control, adjustment of the mA and/or kV according to patient size, use of iterative reconstruction technique) copyright 2011 [employer]- All Rights Reserved Chest X-Ray 11/06/19 08:04 IMPRESSION: Unchanged radiographic appearance of the chest. Abdomen/Pelvis CT 11/08/19 00:00 IMPRESSION: Left labial wound packing without evidence of complication or adverse trend. Bilateral flank subcutaneous fat stranding asymmetric to the left is a nonspecific finding. No focal fluid collections/ abscesses. Other chronic and incidental findings as detailed above. Skeletal Survey 11/11/19 08:08 IMPRESSION: Findings as described. There appear to be multiple small lytic lesions in the calvarium particularly. Assessment & Plan - Diagnosis (1) Myeloma Qualifiers: Multiple myeloma remission status: not in remission Qualified Code(s): C90.00 - Multiple myeloma not having achieved remission Is this a current diagnosis for this admission?: Yes Plan: Immediately will need bone marrow biopsy and treatment. Unfortunately, however, with severe necrotizing fasciitis and wound, this will have to be on hold until she gets stronger. - Time Time Spent with patient: 25-34 minutes
[2019-11-12 08:29] LABS: ANION GAP 5 (5-19); BLOOD UREA NITROGEN 10 mg/dL (7-20); CALCIUM 7.3 mg/dL (8.4-10.2); CARBON DIOXIDE 26 mmol/L (22-30); CHLORIDE 110 mmol/L (98-107); GLUCOSE 134 mg/dL (75-110); POTASSIUM 3.4 mmol/L (3.6-5.0)
[2019-11-12 08:47] LABS: PLATELET COUNT 95 10^3/uL (150-450)
[2019-11-12 08:51] LABS: ABSOLUTE LYMPHOCYTES# (MANUAL) 1.1 10^3/uL (0.5-4.7); ABSOLUTE MONOCYTES # (MANUAL) 0.3 10^3/uL (0.1-1.4); ANISOCYTOSIS 1+; BAND NEUTROPHILS % (MANUAL) 1 % (3-5); BASOPHILS % (MANUAL) 0 % (0-2); EOSINOPHILS % (MANUAL) 0 % (0-6); LYMPHOCYTES % (MANUAL) 7 % (13-45); MONOCYTES % (MANUAL) 2 % (3-13); PLATELET COMMENT DECREASED; SEGMENTED NEUTROPHILS % (MAN) 90 % (42-78); TOTAL CELLS COUNTED 100
[2019-11-12 08:52] LABS: HYPOCHROMASIA 1+; PLATELET LARGE PRESENT
[2019-11-12] MEDS: MAGNESIUM OXIDE 400 MG TABLET PO SCH ×2 (09:22→17:26)
[2019-11-12] MEDS: INSULIN GLARGINE,HUM.REC.ANLOG 1,000 UNIT/10 ML VIAL SUBCUT SCH ×2 (09:22→21:47)
[2019-11-12] MEDS ORDERED: POTASSIUM CHLORIDE 10 MEQ TABLET.ER PO ONE (10:15)
--- NOTE | 2019-11-12 11:07 | Progress Note ---
Provider Note Provider Note: [facility] ID Telephone Advice Consultation Chart reviewed. Patient is a 64-year-old female with multiple comorbid condi tions including COPD, hypertension, depression, tobacco dependence who was admitted on 11/04 due to AMS. She had fever and multiple labs abnormalities including leukocytosis, MELA, hypercalcemia, hyperglycemia. CT scan of the head showed multiple bone lesions. There was suspicion for multiple myeloma. She was also found with left buttock abscess, there was purulent drainage. She was evaluated by surgery and she was taken to the OR on 11/06 for debridement. The initial area of fluctuation was 4x8 but per operative note the necrotic tissue extended 20 x 10 cm to the vulvar area and groin. She had excisional debridement. She was in the ICU and was transferred to the floor on 11/09. She received clindamycin x 24 hr for toxin inhibition and she is now on Unasyn. Wound cultures grew Anaerococcus, Bacteroides and Group F beta hemolytic Streptococcus. ID consulted for recommendations. PMH: COPD Hypertension Depression Smoking PSH: BRYCE CHolecystectomy Allergies: No Known Allergies Allergy (Unverified 11/05/19 03:41) Medications: Amlodipine Besylate/Benazepril [Amlodipine-Benazepril 10-40 mg] 1 cap PO QPM 11/05/19 Gabapentin [Neurontin] 800 mg PO Q8 11/05/19 Hydrocodone/Acetaminophen [[place] 10-325 mg Tablet] 2 tab PO Q8 11/05/19 Lorazepam [Ativan 1 mg Tablet] 2 mg PO Q6HP PRN 11/05/19 Sulfamethoxazole/Trimethoprim [Bactrim Ds Tablet] 1 tab PO BID 11/05/19 Vital Signs: Temp Pulse Resp BP Pulse Ox 98.0 F 74 32 H 134/57 H 91 L 11/11/19 19:53 11/11/19 19:53 11/11/19 19:53 11/11/19 19:53 11/11/19 19:53 Intake & Output 11/10/19 11/11/19 11/12/19 06:59 06:59 06:59 Intake Total 660 3579 3573 Output Total 2900 2325 880 Balance -2090 1254 9443 Weight 105.3 kg 109.9 kg Weight/Height Weight 109.9 kg Height 5 ft 8 in Laboratories: 11/11/19 05:57 11/11/19 05:57 MCV 85 fl (80-97) 11/11/19 05:57 MCH 27.9 pg (27.0-33.4) 11/11/19 05:57 MCHC 33.0 g/dL (32.0-36.0) 11/11/19 05:57 RDW 18.1 % (11.5-14.0) H 11/11/19 05:57 Seg Neutrophils % 88.7 % (42-78) H 11/11/19 05:57 Carbonic Acid 1.21 mmol/L (1.05-1.35) 11/05/19 09:25 HCO3/H2CO3 Ratio 21:1 11/05/19 09:25 ABG pH 7.42 (7.35-7.45) 11/05/19 09:25 ABG pCO2 40.3 mmHg (35-45) 11/05/19 09:25 ABG pO2 173.2 mmHg (80-100) H 11/05/19 09:25 ABG HCO3 25.7 mmol/L (20-24) H 11/05/19 09:25 ABG O2 Saturation 99.2 % (94-98) H 11/05/19 09:25 ABG Base Excess 1.2 mmol/L 11/05/19 09:25 FiO2 15L 11/05/19 09:25 Chloride 114 mmol/L (98-107) H 11/11/19 05:57 Carbon Dioxide 25 mmol/L (22-30) 11/11/19 05:57 Anion Gap 5 (5-19) 11/11/19 05:57 Est GFR ( Amer) > 60 (>60) 11/11/19 05:57 Est GFR (Non-Af Amer) Cancelled 11/04/19 20:07 Glucose 189 mg/dL (75-110) H 11/11/19 05:57 Lactic Acid 1.1 mmol/L (0.7-2.1) 11/05/19 14:21 Calcium 7.9 mg/dL (8.4-10.2) L 11/11/19 05:57 Phosphorus 2.7 mg/dL (2.5-4.5) 11/10/19 05:07 Magnesium 1.3 mg/dL (1.6-2.3) L 11/11/19 05:57 Total Bilirubin 0.5 mg/dL (0.2-1.3) 11/11/19 05:57 AST 20 U/L (14-36) 11/11/19 05:57 Alkaline Phosphatase 105 U/L (38-126) 11/11/19 05:57 Ammonia 10.4 umol/L (9-33) 11/05/19 10:00 Total Protein 4.8 g/dL (6.3-8.2) L 11/11/19 05:57 Albumin 2.3 g/dL (3.5-5.0) L 11/11/19 05:57 Vitamin A 13.2 ug/dL (22.0-69.5) L 11/05/19 08:59 TSH 0.67 uIU/mL (0.47-4.68) 11/04/19 21:27 Free T4 1.07 ng/dL (0.78-2.19) 11/05/19 08:59 Free T3 pg/mL 1.99 pg/mL (2.77-5.27) L 11/04/19 21:27 PTH Intact 9.9 pg/mL (10.0-65.0) L 11/05/19 08:59 Urine Color YELLOW 11/05/19 02:05 Urine Appearance SLIGHTLY-CLOUDY 11/05/19 02:05 Urine pH 5.0 (5.0-9.0) 11/05/19 02:05 Ur Specific [place] 1.014 11/05/19 02:05 Urine Protein 30 mg/dL (NEGATIVE) H 11/05/19 02:05 Urine Glucose (UA) >=500 mg/dL (NEGATIVE) H 11/05/19 02:05 Urine Ketones NEGATIVE mg/dL (NEGATIVE) 11/05/19 02:05 Urine Blood SMALL (NEGATIVE) H 11/05/19 02:05 Urine RBC (Auto) 0 /HPF 11/05/19 02:05 11/05/19 08:59 NT-Pro-B Natriuret Pep 2270 H Microbiology: Blood culture 11/04 NGTD Wound culture 11/06 Anaerococcus, Group F beta Streptococcus, Bacteroides Radiology: Head CT 11/04/19 00:00 IMPRESSION: No acute intracranial hemorrhage or mass effect. Mild chronic microvascular ischemic change with remote lacunar infarct about the anterior aspect of the left lentiform nucleus extending into the myles radiata. Widespread lucent lesions throughout the calvarium and skull base, concerning for either metastatic disease or multiple myeloma. Correlate. Chest X-Ray 11/06/19 08:04 IMPRESSION: Unchanged radiographic appearance of the chest. Abdomen/Pelvis CT 11/08/19 00:00 IMPRESSION: Left labial wound packing without evidence of complication or adverse trend. Bilateral flank subcutaneous fat stranding asymmetric to the left is a nonspecific finding. No focal fluid collections/ abscesses. Other chronic and incidental findings as detailed above. Skeletal Survey 11/11/19 08:08 IMPRESSION: Findings as described. There appear to be multiple small lytic lesions in the calvarium particularly. Assessment and Recommendations: Patient evaluated due to extensive necrotizing fasciitis of the left buttock extending to the labia in the setting of uncontrolled DM and possible active malignancy. She is s/p I&D with excision of all necrotic tissue. Cultures are polymicrobial including Bacteroides, Anaerococcus and Streptococcus spp. She is on Unasyn. She is overall doing well although still has leukocytosis. Will recommend ceftriaxone 2g IV daily + metronidazole 500 mg bid while inpatient. When ready to be discharged home may consider augmentin 500/125 mg tid assuming adequate source control has been achieved. A minimum of 2 weeks of therapy is recommended. Please call if questions. Imelda Sinclair MD [facility] ID [phone]
--- NOTE | 2019-11-12 11:50 | PDOC PROGRESS REPORT ---
Subjective Progress Note for:: 11/12/19 Subjective:: 11/11/2019. No acute events overnight. Patient currently resting bed no apparent distress, complaining of groin pain, alert and oriented x2, cooperative with physical examination, answering questions properly, denies any fever, chills, nausea, vomiting, diarrhea, constipation or any urinary symptoms. 11/12/2019. No acute events overnight. Saw patient this morning patient is awake and alert, oriented x3, mentation much improved compared to yesterday, patient is interactive and engages in conversation, answers questions properly, complaining of persistent groin pain otherwise p.o. tolerant, denies any fever, chills, nausea, vomiting, diarrhea, constipation or any urinary symptoms. Reason For Visit: HYPERCALCEMIA,ACUTE METABOLIC ENCEPHALOPATHY, Physical Exam Vital Signs: Temp Pulse Resp BP Pulse Ox 98.0 F 73 18 149/53 H 89 L 11/12/19 07:52 11/12/19 07:52 11/12/19 07:52 11/12/19 07:52 11/12/19 07:52 Intake & Output 11/11/19 11/12/19 11/13/19 06:59 06:59 06:59 Intake Total 3579 4293 100 Output Total 2325 2555 Balance 1254 1738 100 Weight 109.9 kg 111.9 kg General appearance: PRESENT: no acute distress, obese, well-developed, well- nourished Head exam: PRESENT: atraumatic, normocephalic Respiratory exam: PRESENT: clear to auscultation paula. ABSENT: rales, rhonchi, wheezes Cardiovascular exam: PRESENT: RRR. ABSENT: diastolic murmur, rubs, systolic murmur GI/Abdominal exam: PRESENT: normal bowel sounds, soft. ABSENT: distended, guarding, mass, organolmegaly, rebound, tenderness Rectal exam: PRESENT: other - Left labia incision looks clean, no sign of discharge. Left perirectal area wound looks clean, no sign of discharge, packing in place. Extremities exam: PRESENT: full ROM. ABSENT: calf tenderness, clubbing, pedal edema Neurological exam: PRESENT: alert, awake, oriented to person, oriented to place, oriented to time, oriented to situation, CN II-XII grossly intact. ABSENT: motor sensory deficit Results Laboratory Results: 11/12/19 07:40 11/12/19 07:40 11/12/19 11/12/19 07:40 07:40 WBC 15.2 H RBC 3.10 L Hgb 8.5 L Hct 26.2 L MCV 85 MCH 27.3 MCHC 32.3 RDW 17.6 H Plt Count 95 L Seg Neutrophils % Not Reportable Sodium 140.5 Potassium 3.4 L Chloride 110 H Carbon Dioxide 26 Anion Gap 5 BUN 10 Creatinine 0.69 Est GFR ( Amer) > 60 Glucose 134 H Calcium 7.3 L 11/05/19 08:59 NT-Pro-B Natriuret Pep 2270 H Impressions: Head CT 11/04/19 00:00 IMPRESSION: No acute intracranial hemorrhage or mass effect. Mild chronic microvascular ischemic change with remote lacunar infarct about the anterior aspect of the left lentiform nucleus extending into the myles radiata. Widespread lucent lesions throughout the calvarium and skull base, concerning for either metastatic disease or multiple myeloma. Correlate. TECHNICAL DOCUMENTATION: Quality ID # 436: Final reports with documentation of one or more dose reduction techniques (e.g., Automated exposure control, adjustment of the mA and/or kV according to patient size, use of iterative reconstruction technique) copyright 2011 [employer]- All Rights Reserved Chest X-Ray 11/06/19 08:04 IMPRESSION: Unchanged radiographic appearance of the chest. Abdomen/Pelvis CT 11/08/19 00:00 IMPRESSION: Left labial wound packing without evidence of complication or adverse trend. Bilateral flank subcutaneous fat stranding asymmetric to the left is a nonspecific finding. No focal fluid collections/ abscesses. Other chronic and incidental findings as detailed above. Skeletal Survey 11/11/19 08:08 IMPRESSION: Findings as described. There appear to be multiple small lytic lesions in the calvarium particularly. Assessment and Plan - Diagnosis (1) Necrotizing fasciitis of pelvic region and thigh Is this a current diagnosis for this admission?: Yes Plan: Polymicrobial necrotizing fasciitis of her left labia and left perineal region. Status post aggressive left labial, and perineal debridement on 11/06/2019. Surgery is following and currently states no indication for further debridement. Wound culture is growing Bacteroides, Peptostreptococcus and group F beta strep all of which are recommended for treatment with Unasyn. Day #5 IV antibiotics. Day #1 IV metronidazole. Day #1 IV ceftriaxone. Received 5 days of IV Unasyn. ID has been consulted. Recommendation is IV ceftriaxone and IV metronidazole while inpatient and switching to p.o. Augmentin 500/125 3 times daily upon discharge. A total of 2 weeks of antibiotics recommended from time of good source control. Continue IV antibiotics. Continue wound care. Surgery follow-up. Recommendations noted. (2) Cardiomegaly Is this a current diagnosis for this admission?: Yes Plan: Denies any anginal symptoms. No history of CAD. Echo shows normal ejection fraction and no significant diastolic dysfunction. No history of CHF. (3) Hypercalcemia Is this a current diagnosis for this admission?: Yes Plan: Currently resolved. Likely due to underlying malignancy possibly multiple myeloma. Hypercalcemia of 19 on admission. Received zoledronic acid and salmon calcitonin during first 2 days of admission. Calvarium lesions noted on head CT raising high suspicion for multiple myeloma. SPEP and UPEP pending. Lambda free light chains elevated. PTH, vitamin D 25, vitamin D 125 have been appropriately low. Vitamin A and PTH related peptide pending. Oncology on board. Skeletal survey was been ordered. Recommendation is outpatient chemotherapy once patient is discharged from the hospital. Monitor calcium level. (4) Hypernatremia Is this a current diagnosis for this admission?: Yes Plan: Resolved. This was likely dehydrated state. DC IV fluids. Encourage p.o. intake. BMP tomorrow. (5) Uncontrolled type 2 diabetes mellitus Qualifiers: Glycemic state: with hyperglycemia Qualified Code(s): E11.65 - Type 2 diabetes mellitus with hyperglycemia Is this a current diagnosis for this admission?: Yes Plan: Controlled. Initially presented with HHN K and was on insulin drip which has resolved. Continue basal, sliding scale and correctional insulin. Hypoglycemia protocol. Accu-Cheks. Adjust insulin dosage as needed. Outpatient PCP follow-up. (6) Acute kidney injury (nontraumatic) Is this a current diagnosis for this admission?: Yes Plan: Secondary to hypercalcemia and sepsis. Currently resolved. Monitor volume status and electrolytes replace as needed. Avoid nephrotoxic meds. (7) Physical debility Is this a current diagnosis for this admission?: Yes Plan: Due to underlying infectious process and malignancy. Continue PT OT. Plan will be for patient to be transferred to rehab for continuation of physical therapy. Discharge planning has been consulted. (8) Myeloma Qualifiers: Multiple myeloma remission status: not in remission Qualified Code(s): C90.00 - Multiple myeloma not having achieved remission Is this a current diagnosis for this admission?: Yes Plan: Given clinical presentation, lab and imaging findings likely multiple myeloma. Skeletal survey positive for multiple lytic lesions. Oncology on board. Plan is for chemotherapy as outpatient. (9) Acute metabolic encephalopathy Is this a current diagnosis for this admission?: Yes Plan: Obtunded on admission secondary to hypercalcemia and severe sepsis. Currently resolved. Patient is fully awake and alert oriented x3. (10) Atrial fibrillation with RVR Is this a current diagnosis for this admission?: Yes Plan: This is a one-time episode of paroxysmal atrial fibrillation that was aggravated by severe sepsis. No prior history and not longstanding. Currently resolved and patient is in sinus rhythm. Will defer on anticoagulation for now.
[2019-11-12] MEDS: METRONIDAZOLE 500 MG/NS RTU 500 MG/100 ML RTUPB IV SCH (17:27)
[2019-11-13] MEDS: MORPHINE SULFATE 10 MG/ML INJ IV PRN ×2 (02:46→09:56)
[2019-11-13 05:46] LABS: HEMATOCRIT 26.5 % (36.0-47.0); HEMOGLOBIN 8.7 g/dL (12.0-15.5); MEAN CORPUSCULAR HEMOGLOBIN 27.8 pg (27.0-33.4); MEAN CORPUSCULAR HGB CONC 32.8 g/dL (32.0-36.0); MEAN CORPUSCULAR VOLUME 85 fl (80-97); PLATELET COUNT 100 10^3/uL (150-450); RED BLOOD COUNT 3.13 10^6/uL (3.72-5.28); RED CELL DISTRIBUTION WIDTH 17.2 % (11.5-14.0); WHITE BLOOD COUNT 14.9 10^3/uL (4.0-10.5)
[2019-11-13 05:56] LABS: ALBUMIN 2.2 g/dL (3.5-5.0); ALKALINE PHOSPHATASE 86 U/L (38-126); ANION GAP 5 (5-19); ASPARTATE AMINO TRANSFERASE 19 U/L (14-36); BILIRUBIN,TOTAL 0.4 mg/dL (0.2-1.3); BLOOD UREA NITROGEN 9 mg/dL (7-20); CALCIUM 7.1 mg/dL (8.4-10.2); CARBON DIOXIDE 25 mmol/L (22-30); CHLORIDE 111 mmol/L (98-107); GLUCOSE 96 mg/dL (75-110); POTASSIUM 3.5 mmol/L (3.6-5.0); TOTAL PROTEIN 4.6 g/dL (6.3-8.2)
[2019-11-13] MEDS: HEPARIN SOD (PORCINE) 5,000 UNIT/ML 1 ML VIAL SUBCUT SCH ×3 (06:11→21:56)
[2019-11-13] MEDS: METRONIDAZOLE 500 MG/NS RTU 500 MG/100 ML RTUPB IV SCH ×2 (06:11→17:38)
[2019-11-13 06:39] LABS: ABSOLUTE LYMPHOCYTES# (MANUAL) 1.5 10^3/uL (0.5-4.7); ABSOLUTE MONOCYTES # (MANUAL) 0.1 10^3/uL (0.1-1.4); BAND NEUTROPHILS % (MANUAL) 3 % (3-5); BASOPHILS % (MANUAL) 0 % (0-2); EOSINOPHILS % (MANUAL) 0 % (0-6); LYMPHOCYTES % (MANUAL) 10 % (13-45); MONOCYTES % (MANUAL) 1 % (3-13); NUCLEATED RED BLOOD CELLS 1 /100 WBC (0); SEGMENTED NEUTROPHILS % (MAN) 86 % (42-78); TOTAL CELLS COUNTED 100
[2019-11-13 06:44] LABS: ANISOCYTOSIS 1+; HYPOCHROMASIA SLIGHT; TOXIC GRANULATION SLIGHT
[2019-11-13 06:45] LABS: PLATELET COMMENT ADEQUATE
--- NOTE | 2019-11-13 08:26 | PDOC PROGRESS REPORT ---
Subjective Progress Note for:: 11/13/19 Subjective:: No acute events overnight Reason For Visit: HYPERCALCEMIA,ACUTE METABOLIC ENCEPHALOPATHY, Physical Exam Vital Signs: Temp Pulse Resp BP Pulse Ox 98.0 F 71 30 H 138/56 H 94 11/13/19 03:38 11/13/19 03:38 11/13/19 03:38 11/13/19 03:38 11/13/19 03:38 Intake & Output 11/12/19 11/13/19 11/14/19 06:59 06:59 06:59 Intake Total 4293 2219 Output Total 2555 4275 Balance 1738 -6 Weight 111.9 kg 110.7 kg General appearance: PRESENT: no acute distress, well-developed, well-nourished Head exam: PRESENT: atraumatic, normocephalic Eye exam: PRESENT: conjunctiva pink, EOMI, PERRLA. ABSENT: scleral icterus Ear exam: PRESENT: normal external ear exam Mouth exam: PRESENT: moist, tongue midline Neck exam: ABSENT: carotid bruit, JVD, lymphadenopathy, thyromegaly Respiratory exam: PRESENT: clear to auscultation paula. ABSENT: rales, rhonchi, wheezes Cardiovascular exam: PRESENT: RRR. ABSENT: diastolic murmur, rubs, systolic murmur Pulses: PRESENT: normal dorsalis pedis pul Vascular exam: PRESENT: normal capillary refill GI/Abdominal exam: PRESENT: normal bowel sounds, soft. ABSENT: distended, guarding, mass, organolmegaly, rebound, tenderness Rectal exam: PRESENT: deferred Extremities exam: PRESENT: full ROM. ABSENT: calf tenderness, clubbing, pedal edema Neurological exam: PRESENT: alert, awake, oriented to person, oriented to place, oriented to time, oriented to situation, CN II-XII grossly intact. ABSENT: motor sensory deficit Psychiatric exam: PRESENT: appropriate affect, normal mood. ABSENT: homicidal ideation, suicidal ideation Skin exam: PRESENT: dry, intact, warm. ABSENT: cyanosis, rash Results Laboratory Results: 11/13/19 05:01 11/13/19 05:01 11/12/19 11/12/19 11/13/19 07:40 07:40 05:01 WBC 15.2 H 14.9 H RBC 3.10 L 3.13 L Hgb 8.5 L 8.7 L Hct 26.2 L 26.5 L MCV 85 85 MCH 27.3 27.8 MCHC 32.3 32.8 RDW 17.6 H 17.2 H Plt Count 95 L 100 L Seg Neutrophils % Not Reportable Not Reportable Sodium 140.5 Potassium 3.4 L Chloride 110 H Carbon Dioxide 26 Anion Gap 5 BUN 10 Creatinine 0.69 Est GFR ( Amer) > 60 Glucose 134 H Calcium 7.3 L Magnesium Total Bilirubin AST Alkaline Phosphatase Total Protein Albumin 11/13/19 05:01 WBC RBC Hgb Hct MCV MCH MCHC RDW Plt Count Seg Neutrophils % Sodium 140.6 Potassium 3.5 L Chloride 111 H Carbon Dioxide 25 Anion Gap 5 BUN 9 Creatinine 0.66 Est GFR ( Amer) > 60 Glucose 96 Calcium 7.1 L Magnesium 1.6 Total Bilirubin 0.4 AST 19 Alkaline Phosphatase 86 Total Protein 4.6 L Albumin 2.2 L 11/05/19 08:59 NT-Pro-B Natriuret Pep 2270 H Impressions: Head CT 11/04/19 00:00 IMPRESSION: No acute intracranial hemorrhage or mass effect. Mild chronic microvascular ischemic change with remote lacunar infarct about the anterior aspect of the left lentiform nucleus extending into the myles radiata. Widespread lucent lesions throughout the calvarium and skull base, concerning for either metastatic disease or multiple myeloma. Correlate. TECHNICAL DOCUMENTATION: Quality ID # 436: Final reports with documentation of one or more dose reduction techniques (e.g., Automated exposure control, adjustment of the mA and/or kV according to patient size, use of iterative reconstruction technique) copyright 2011 [employer]- All Rights Reserved Chest X-Ray 11/06/19 08:04 IMPRESSION: Unchanged radiographic appearance of the chest. Abdomen/Pelvis CT 11/08/19 00:00 IMPRESSION: Left labial wound packing without evidence of complication or adverse trend. Bilateral flank subcutaneous fat stranding asymmetric to the left is a nonspecific finding. No focal fluid collections/ abscesses. Other chronic and incidental findings as detailed above. Skeletal Survey 11/11/19 08:08 IMPRESSION: Findings as described. There appear to be multiple small lytic lesions in the calvarium particularly. Assessment & Plan - Diagnosis (1) Myeloma Qualifiers: Multiple myeloma remission status: not in remission Qualified Code(s): C90.00 - Multiple myeloma not having achieved remission Is this a current diagnosis for this admission?: Yes Plan: As noted previously, not strong enough for rx for now. Will follow peripherally. Please let us know when pt ready for d/c to rehab and we will make appt to see us as outpt at that time. - Time Time Spent with patient: 15-24 minutes
[2019-11-13] MEDS ORDERED: MEGESTROL ACETATE 20 MG TABLET PO ONE (09:00)
[2019-11-13] MEDS: INSULIN REG, HUMAN 100 UNIT/ML 3 ML VIAL (PYX) SUBCUT SCH ×4 (09:48→21:54)
[2019-11-13] MEDS: POTASSIUM CHLORIDE 10 MEQ TABLET.ER PO SCH (09:55)
[2019-11-13] MEDS: MAGNESIUM OXIDE 400 MG TABLET PO SCH ×2 (09:55→17:38)
[2019-11-13] MEDS: CEFTRIAXONE 2 GM/D5W RTU 2 GM/50 ML RTUPB IV SCH (09:57)
[2019-11-13] MEDS ORDERED: POTASSIUM CHLORIDE 10 MEQ TABLET.ER PO SCH (10:00)
--- NOTE | 2019-11-13 12:34 | PDOC PROGRESS REPORT ---
Subjective Progress Note for:: 11/13/19 Subjective:: 11/11/2019. No acute events overnight. Patient currently resting bed no apparent distress, complaining of groin pain, alert and oriented x2, cooperative with physical examination, answering questions properly, denies any fever, chills, nausea, vomiting, diarrhea, constipation or any urinary symptoms. 11/12/2019. No acute events overnight. Saw patient this morning patient is awake and alert, oriented x3, mentation much improved compared to yesterday, patient is interactive and engages in conversation, answers questions properly, complaining of persistent groin pain otherwise p.o. tolerant, denies any fever, chills, nausea, vomiting, diarrhea, constipation or any urinary symptoms. 11/13/2019. No acute events overnight. Patient comfortably sitting in bed no apparent distress, complaining of lower back and groin pain, p.o. tolerant, has not had a bowel movement, denies any fever, chills, nausea, vomiting, diarrhea. Patient alert and oriented x3, cooperative, inquiring about her x-ray results. Reason For Visit: HYPERCALCEMIA,ACUTE METABOLIC ENCEPHALOPATHY, Physical Exam Vital Signs: Temp Pulse Resp BP Pulse Ox 98.0 F 67 17 143/68 H 96 11/13/19 03:38 11/13/19 08:17 11/13/19 08:17 11/13/19 08:17 11/13/19 08:17 Intake & Output 11/12/19 11/13/19 11/14/19 06:59 06:59 06:59 Intake Total 4293 2219 Output Total 2555 4275 Balance 1738 -2056 Weight 111.9 kg 110.7 kg General appearance: PRESENT: no acute distress, obese, well-developed, well- nourished Head exam: PRESENT: atraumatic, normocephalic Eye exam: PRESENT: conjunctiva pink, EOMI, PERRLA. ABSENT: scleral icterus Respiratory exam: PRESENT: clear to auscultation paula. ABSENT: rales, rhonchi, wheezes Cardiovascular exam: PRESENT: RRR. ABSENT: diastolic murmur, rubs, systolic murmur GI/Abdominal exam: PRESENT: normal bowel sounds, soft. ABSENT: distended, guarding, mass, organolmegaly, rebound, tenderness Rectal exam: PRESENT: other - Left perirectal wound looks clean, packing in place, no discharge. Gentrourinary exam: PRESENT: other - Left labial wound looks clean. Extremities exam: PRESENT: full ROM. ABSENT: calf tenderness, clubbing, pedal edema Results Laboratory Results: 11/13/19 05:01 11/13/19 05:01 11/13/19 11/13/19 05:01 05:01 WBC 14.9 H RBC 3.13 L Hgb 8.7 L Hct 26.5 L MCV 85 MCH 27.8 MCHC 32.8 RDW 17.2 H Plt Count 100 L Seg Neutrophils % Not Reportable Sodium 140.6 Potassium 3.5 L Chloride 111 H Carbon Dioxide 25 Anion Gap 5 BUN 9 Creatinine 0.66 Est GFR ( Amer) > 60 Glucose 96 Calcium 7.1 L Magnesium 1.6 Total Bilirubin 0.4 AST 19 Alkaline Phosphatase 86 Total Protein 4.6 L Albumin 2.2 L 11/05/19 08:59 NT-Pro-B Natriuret Pep 2270 H Impressions: Head CT 11/04/19 00:00 IMPRESSION: No acute intracranial hemorrhage or mass effect. Mild chronic microvascular ischemic change with remote lacunar infarct about the anterior aspect of the left lentiform nucleus extending into the myles radiata. Widespread lucent lesions throughout the calvarium and skull base, concerning for either metastatic disease or multiple myeloma. Correlate. TECHNICAL DOCUMENTATION: Quality ID # 436: Final reports with documentation of one or more dose reduction techniques (e.g., Automated exposure control, adjustment of the mA and/or kV according to patient size, use of iterative reconstruction technique) copyright 2011 [employer]- All Rights Reserved Chest X-Ray 11/06/19 08:04 IMPRESSION: Unchanged radiographic appearance of the chest. Abdomen/Pelvis CT 11/08/19 00:00 IMPRESSION: Left labial wound packing without evidence of complication or adverse trend. Bilateral flank subcutaneous fat stranding asymmetric to the left is a nonspecific finding. No focal fluid collections/ abscesses. Other chronic and incidental findings as detailed above. Skeletal Survey 11/11/19 08:08 IMPRESSION: Findings as described. There appear to be multiple small lytic lesions in the calvarium particularly. Assessment and Plan - Diagnosis (1) Necrotizing fasciitis of pelvic region and thigh Is this a current diagnosis for this admission?: Yes Plan: Polymicrobial necrotizing fasciitis of her left labia and left perineal region. Status post aggressive left labial, and perineal debridement on 11/06/2019. Surgery is following and currently states no indication for further debridement. Wound culture is growing Bacteroides, Peptostreptococcus and group F beta strep all of which are recommended for treatment with Unasyn. Day #6 IV antibiotics. Day #2 IV metronidazole. Day #2 IV ceftriaxone. Received 5 days of IV Unasyn. ID has been consulted. Recommendation is IV ceftriaxone and IV metronidazole while inpatient and switching to p.o. Augmentin 500/125 3 times daily upon discharge. A total of 2 weeks of antibiotics recommended from time of good source control. Continue IV antibiotics. Continue wound care. Surgery follow-up. Recommendations noted. (2) Myeloma Qualifiers: Multiple myeloma remission status: not in remission Qualified Code(s): C90.00 - Multiple myeloma not having achieved remission Is this a current diagnosis for this admission?: Yes Plan: Given clinical presentation, lab and imaging findings likely multiple myeloma. Skeletal survey positive for multiple lytic lesions. Oncology on board. Plan is for chemotherapy as outpatient. (3) Cardiomegaly Is this a current diagnosis for this admission?: Yes Plan: Denies any anginal symptoms. No history of CAD. Echo shows normal ejection fraction and no significant diastolic dysfunction. No history of CHF. (4) Uncontrolled type 2 diabetes mellitus Qualifiers: Glycemic state: with hyperglycemia Qualified Code(s): E11.65 - Type 2 diabetes mellitus with hyperglycemia Is this a current diagnosis for this admission?: Yes Plan: Controlled. Initially presented with HHN K and was on insulin drip which has resolved. Continue basal, sliding scale and correctional insulin. Hypoglycemia protocol. Accu-Cheks. Adjust insulin dosage as needed. Outpatient PCP follow-up. (5) Hypercalcemia Is this a current diagnosis for this admission?: Yes Plan: Currently resolved. Likely due to underlying malignancy possibly multiple myeloma. Hypercalcemia of 19 on admission. Received zoledronic acid and salmon calcitonin during first 2 days of admission. Calvarium lesions noted on head CT raising high suspicion for multiple myeloma. SPEP and UPEP pending. Lambda free light chains elevated. PTH, vitamin D 25, vitamin D 125 have been appropriately low. Vitamin A and PTH related peptide pending. Oncology on board. Skeletal survey was been ordered. Recommendation is outpatient chemotherapy once patient is discharged from the hospital. Monitor calcium level. (6) Hypernatremia Is this a current diagnosis for this admission?: Yes Plan: Resolved. This was likely dehydrated state. DC IV fluids. Encourage p.o. intake. BMP tomorrow. (7) Acute kidney injury (nontraumatic) Is this a current diagnosis for this admission?: Yes Plan: Secondary to hypercalcemia and sepsis. Currently resolved. Monitor volume status and electrolytes replace as needed. Avoid nephrotoxic meds. (8) Physical debility Is this a current diagnosis for this admission?: Yes Plan: Due to underlying infectious process and malignancy. Continue PT OT. Will be transition to SNF/[facility] once surgery signed off on her perirectal wound. Discharge planning has been consulted. (9) Acute metabolic encephalopathy Is this a current diagnosis for this admission?: Yes Plan: Resolved. Alert and oriented x3. Cooperative. Answering question appropriately. Obtunded on admission secondary to hypercalcemia and severe sepsis. (10) Atrial fibrillation with RVR Is this a current diagnosis for this admission?: Yes Plan: This is a one-time episode of paroxysmal atrial fibrillation that was aggravated by severe sepsis. No prior history and not longstanding. Currently resolved and patient is in sinus rhythm. Will defer on anticoagulation for now.
[2019-11-13] MEDS: INSULIN GLARGINE,HUM.REC.ANLOG 1,000 UNIT/10 ML VIAL SUBCUT SCH ×2 (13:13→21:55)
[2019-11-13] MEDS: OXYCODONE-ACETAMINOPHEN 5-325 MG TABLET PO PRN ×2 (13:15→19:35)
[2019-11-14] MEDS: OXYCODONE-ACETAMINOPHEN 5-325 MG TABLET PO PRN ×3 (04:42→21:34)
[2019-11-14 05:07] LABS: HEMATOCRIT 26.4 % (36.0-47.0); HEMOGLOBIN 8.7 g/dL (12.0-15.5); MEAN CORPUSCULAR HEMOGLOBIN 27.8 pg (27.0-33.4); MEAN CORPUSCULAR HGB CONC 33.1 g/dL (32.0-36.0); MEAN CORPUSCULAR VOLUME 84 fl (80-97); PLATELET COUNT 108 10^3/uL (150-450); RED BLOOD COUNT 3.14 10^6/uL (3.72-5.28); RED CELL DISTRIBUTION WIDTH 17.3 % (11.5-14.0); WHITE BLOOD COUNT 17.1 10^3/uL (4.0-10.5)
[2019-11-14] MEDS: METRONIDAZOLE 500 MG/NS RTU 500 MG/100 ML RTUPB IV SCH ×2 (05:27→17:00)
[2019-11-14] MEDS: HEPARIN SOD (PORCINE) 5,000 UNIT/ML 1 ML VIAL SUBCUT SCH ×3 (05:31→21:37)
[2019-11-14 05:37] LABS: ALBUMIN 2.3 g/dL (3.5-5.0); ALKALINE PHOSPHATASE 78 U/L (38-126); ASPARTATE AMINO TRANSFERASE 16 U/L (14-36); BILIRUBIN,TOTAL 0.3 mg/dL (0.2-1.3); BLOOD UREA NITROGEN 9 mg/dL (7-20); CARBON DIOXIDE 24 mmol/L (22-30); CHLORIDE 111 mmol/L (98-107); GLUCOSE 133 mg/dL (75-110); POTASSIUM 3.8 mmol/L (3.6-5.0); TOTAL PROTEIN 4.7 g/dL (6.3-8.2)
[2019-11-14 05:43] LABS: ANION GAP 3 (5-19)
[2019-11-14 05:45] LABS: CALCIUM 6.9 mg/dL (8.4-10.2)
[2019-11-14] MEDS: INSULIN REG, HUMAN 100 UNIT/ML 3 ML VIAL (PYX) SUBCUT SCH ×4 (08:01→21:36)
[2019-11-14] MEDS ORDERED: CALCIUM GLUCONATE 1000 MG/10 ML INJ IV ONE (09:00)
[2019-11-14] MEDS: MAGNESIUM OXIDE 400 MG TABLET PO SCH ×2 (09:07→17:00)
[2019-11-14] MEDS: POTASSIUM CHLORIDE 10 MEQ TABLET.ER PO SCH (09:07)
[2019-11-14] MEDS: INSULIN GLARGINE,HUM.REC.ANLOG 1,000 UNIT/10 ML VIAL SUBCUT SCH ×2 (09:07→21:35)
[2019-11-14] MEDS: CEFTRIAXONE 2 GM/D5W RTU 2 GM/50 ML RTUPB IV SCH (09:43)
[2019-11-14] MEDS: ACETAMINOPHEN 325 MG TABLET PO PRN (09:44)
[2019-11-14] MEDS ORDERED: VANCOMYCIN HCL INJ 1000 MG VIAL IV SCH (10:00)
[2019-11-14] MEDS: VANCOMYCIN HCL 1,000 MG in DEXTROSE 5%-WATER 250 ML IV SCH ×2 (10:16→17:05)
--- NOTE | 2019-11-14 11:11 | PDOC PROGRESS REPORT ---
Subjective Progress Note for:: 11/14/19 Subjective:: Patient states that she was having some burning pains in her feet. Has had some neuropathic pains in feet before. Denies any shortness of breath or chest pain. Denies any fever or chills. Has not able to do much of any ambulation while in the hospital but I have encouraged her to keep on trying added. She will continue to work with physical therapy. Reason For Visit: HYPERCALCEMIA,ACUTE METABOLIC ENCEPHALOPATHY, Physical Exam Vital Signs: Temp Pulse Resp BP Pulse Ox 98.1 F 70 18 136/57 H 94 11/14/19 07:52 11/14/19 07:52 11/14/19 07:52 11/14/19 07:52 11/14/19 07:52 Intake & Output 11/13/19 11/14/19 11/15/19 06:59 06:59 06:59 Intake Total 6940 2147 50 Output Total 9846 9475 Balance -2055 50 Weight 110.7 kg 110.5 kg General appearance: PRESENT: no acute distress, cooperative Neck exam: ABSENT: JVD Respiratory exam: PRESENT: symmetrical, unlabored. ABSENT: accessory muscle use, retraction, tachypnea, wheezes Cardiovascular exam: PRESENT: RRR, +S1, +S2 Pulses: PRESENT: normal dorsalis pedis pul Vascular exam: PRESENT: normal capillary refill GI/Abdominal exam: PRESENT: soft. ABSENT: rebound, rigid, tenderness Neurological exam: PRESENT: alert, awake, oriented to person, oriented to place, oriented to time Results Laboratory Results: 11/14/19 04:28 11/14/19 04:28 11/14/19 11/14/19 04:28 04:28 WBC 17.1 H RBC 3.14 L Hgb 8.7 L Hct 26.4 L MCV 84 MCH 27.8 MCHC 33.1 RDW 17.3 H Plt Count 108 L Sodium 138.4 Potassium 3.8 Chloride 111 H Carbon Dioxide 24 Anion Gap 3 L BUN 9 Creatinine 0.67 Est GFR ( Amer) > 60 Glucose 133 H Calcium 6.9 L* Magnesium 1.8 Total Bilirubin 0.3 AST 16 Alkaline Phosphatase 78 Total Protein 4.7 L Albumin 2.3 L 11/05/19 08:59 NT-Pro-B Natriuret Pep 2270 H Impressions: Head CT 11/04/19 00:00 IMPRESSION: No acute intracranial hemorrhage or mass effect. Mild chronic microvascular ischemic change with remote lacunar infarct about the anterior aspect of the left lentiform nucleus extending into the myles radiata. Widespread lucent lesions throughout the calvarium and skull base, concerning for either metastatic disease or multiple myeloma. Correlate. TECHNICAL DOCUMENTATION: Quality ID # 436: Final reports with documentation of one or more dose reduction techniques (e.g., Automated exposure control, adjustment of the mA and/or kV according to patient size, use of iterative reconstruction technique) copyright 2011 [employer]- All Rights Reserved Chest X-Ray 11/06/19 08:04 IMPRESSION: Unchanged radiographic appearance of the chest. Abdomen/Pelvis CT 11/08/19 00:00 IMPRESSION: Left labial wound packing without evidence of complication or adverse trend. Bilateral flank subcutaneous fat stranding asymmetric to the left is a nonspecific finding. No focal fluid collections/ abscesses. Other chronic and incidental findings as detailed above. Skeletal Survey 11/11/19 08:08 IMPRESSION: Findings as described. There appear to be multiple small lytic lesions in the calvarium particularly. Assessment and Plan - Diagnosis (1) Necrotizing fasciitis of pelvic region and thigh Is this a current diagnosis for this admission?: Yes Plan: Polymicrobial necrotizing fasciitis of her left labia and left perineal region. Status post aggressive left labial, and perineal debridement on 11/06/2019. Surgery is following and currently states no indication for further debridement. Wound culture is growing Bacteroides, Peptostreptococcus and group F beta strep all of which are recommended for treatment with Unasyn. Day #7 IV antibiotics. Day #3 IV metronidazole. Day #3 IV ceftriaxone. Received 5 days of IV Unasyn. ID has been consulted. Recommendation is IV ceftriaxone and IV metronidazole while inpatient and switching to p.o. Augmentin 500/125 3 times daily upon discharge. A total of 2 weeks of antibiotics recommended from time of good source control. Leukocytosis continues to trend up to 17 today. Currently on ceftriaxone and Flagyl. I have added vancomycin. Continue to monitor CBC. (2) Myeloma Qualifiers: Multiple myeloma remission status: not in remission Qualified Code(s): C90.00 - Multiple myeloma not having achieved remission Is this a current diagnosis for this admission?: Yes Plan: Diagnosed with multiple myeloma by oncology. Skeletal survey positive for mul tiple lytic lesions. As patient is currently still fighting an infection and deconditioning, oncology plans to pursue chemotherapy later on as outpatient. (3) Hypercalcemia Is this a current diagnosis for this admission?: Yes Plan: Secondary to multiple myeloma. Other work-up including PTH, vitamin D 25, vitamin D 125, vitamin A, PTHrP were had and normal low appropriately low. Patient received zoledronate and calcitonin on the first 2 days of admission. Currently, she is hypocalcemic with corrected calcium of 8.2 today. I believe this is likely due to continued effects of zolendronate administered last week. I will give 1 g of calcium gluconate today. Continue to monitor metabolic panel. (4) Uncontrolled type 2 diabetes mellitus Qualifiers: Glycemic state: with hyperglycemia Qualified Code(s): E11.65 - Type 2 diabetes mellitus with hyperglycemia Is this a current diagnosis for this admission?: Yes Plan: Controlled. Initially presented with HHN K and was on insulin drip which has resolved. Continue basal, sliding scale and correctional insulin. Hypoglycemia protocol. Accu-Cheks. Adjust insulin dosage as needed. Outpatient PCP follow-up. (5) Acute metabolic encephalopathy Is this a current diagnosis for this admission?: Yes Plan: Obtunded on admission secondary to hypercalcemia and severe sepsis. Now Resolved. Alert and oriented x3. Cooperative. Answering question appropriately. (6) Atrial fibrillation with RVR Is this a current diagnosis for this admission?: Yes Plan: This is a one-time episode of paroxysmal atrial fibrillation that was aggravated by severe sepsis. No prior history and not longstanding. Currently resolved and patient is in sinus rhythm. Will defer on anticoagulation for now. (7) Cardiomegaly Is this a current diagnosis for this admission?: Yes Plan: Denies any anginal symptoms. No history of CAD. Echo shows normal ejection fraction and no significant diastolic dysfunction. No history of CHF. (8) Acute kidney injury (nontraumatic) Is this a current diagnosis for this admission?: Yes Plan: Secondary to hypercalcemia and sepsis. Currently resolved. (9) Neuropathy Is this a current diagnosis for this admission?: Yes Plan: Patient was on gabapentin 800 mg every 8 hours which was held on admission due to mental status. I resume her gabapentin at 600 mg every 12 hours to monitor. (10) Hypernatremia Is this a current diagnosis for this admission?: Yes Plan: Resolved following hydration. This was likely dehydrated state. - Time Time Spent with patient: 15-24 minutes
[2019-11-14] MEDS: GABAPENTIN 300 MG CAPSULE PO SCH ×2 (11:48→21:35)
[2019-11-15] MEDS: VANCOMYCIN HCL 1,000 MG in DEXTROSE 5%-WATER 250 ML IV SCH ×3 (02:20→17:34)
[2019-11-15 04:29] LABS: HEMATOCRIT 26.3 % (36.0-47.0); HEMOGLOBIN 8.6 g/dL (12.0-15.5); MEAN CORPUSCULAR HEMOGLOBIN 27.7 pg (27.0-33.4); MEAN CORPUSCULAR HGB CONC 32.7 g/dL (32.0-36.0); MEAN CORPUSCULAR VOLUME 85 fl (80-97); PLATELET COUNT 135 10^3/uL (150-450); RED CELL DISTRIBUTION WIDTH 17.6 % (11.5-14.0); WHITE BLOOD COUNT 15.7 10^3/uL (4.0-10.5)
[2019-11-15 04:54] LABS: ABSOLUTE LYMPHOCYTES# (MANUAL) 1.1 10^3/uL (0.5-4.7); ABSOLUTE MONOCYTES # (MANUAL) 1.1 10^3/uL (0.1-1.4); ALBUMIN 2.3 g/dL (3.5-5.0); ALKALINE PHOSPHATASE 81 U/L (38-126); ANISOCYTOSIS 1+; ASPARTATE AMINO TRANSFERASE 14 U/L (14-36); BAND NEUTROPHILS % (MANUAL) 6 % (3-5); BASOPHILS % (MANUAL) 0 % (0-2); BILIRUBIN,TOTAL 0.2 mg/dL (0.2-1.3); BLOOD UREA NITROGEN 8 mg/dL (7-20); CARBON DIOXIDE 24 mmol/L (22-30); CHLORIDE 112 mmol/L (98-107); EOSINOPHILS % (MANUAL) 1 % (0-6); GLUCOSE 120 mg/dL (75-110); LYMPHOCYTES % (MANUAL) 7 % (13-45); MONOCYTES % (MANUAL) 7 % (3-13); NUCLEATED RED BLOOD CELLS 1 /100 WBC (0); PLATELET COMMENT ADEQUATE; POLYCHROMASIA 1+; POTASSIUM 3.8 mmol/L (3.6-5.0); SEGMENTED NEUTROPHILS % (MAN) 79 % (42-78); TOTAL CELLS COUNTED 100; TOTAL PROTEIN 4.7 g/dL (6.3-8.2)
[2019-11-15] MEDS: METRONIDAZOLE 500 MG/NS RTU 500 MG/100 ML RTUPB IV SCH ×2 (05:08→17:34)
[2019-11-15] MEDS: OXYCODONE-ACETAMINOPHEN 5-325 MG TABLET PO PRN ×3 (05:08→18:10)
[2019-11-15] MEDS: HEPARIN SOD (PORCINE) 5,000 UNIT/ML 1 ML VIAL SUBCUT SCH ×3 (05:15→23:12)
[2019-11-15 05:20] LABS: ANION GAP 3 (5-19)
[2019-11-15] MEDS: INSULIN REG, HUMAN 100 UNIT/ML 3 ML VIAL (PYX) SUBCUT SCH ×4 (08:04→23:10)
[2019-11-15] MEDS: POTASSIUM CHLORIDE 10 MEQ TABLET.ER PO SCH (09:48)
[2019-11-15] MEDS: INSULIN GLARGINE,HUM.REC.ANLOG 1,000 UNIT/10 ML VIAL SUBCUT SCH ×2 (09:48→23:10)
[2019-11-15] MEDS: MAGNESIUM OXIDE 400 MG TABLET PO SCH ×2 (09:48→17:33)
[2019-11-15] MEDS: GABAPENTIN 300 MG CAPSULE PO SCH ×2 (09:49→23:11)
[2019-11-15] MEDS: CEFTRIAXONE 2 GM/D5W RTU 2 GM/50 ML RTUPB IV SCH (09:49)
[2019-11-15 09:59] LABS: VANCOMYCIN,TROUGH 13.8 ug/mL (5.0-20.0)
[2019-11-15] MEDS ORDERED: CALCIUM GLUCONATE 1000 MG/10 ML INJ IV ONE (10:00)
[2019-11-15] MEDS: ACETAMINOPHEN 325 MG TABLET PO PRN (10:06)
--- NOTE | 2019-11-15 14:37 | PDOC PROGRESS REPORT ---
Subjective Progress Note for:: 11/15/19 Subjective:: Patient admitted for perineal abscesses and found to also have lytic bone lesions consistent with multiple myeloma. She has been treated with appropriate antibiotics as well as incision and drainage of the abscesses by surgery. Chemotherapy for her multiple myeloma is currently on hold while we treat her pelvic infection. Her calcium is significantly low and this will be replaced with additional IV calcium today. WBC is dropping, consistent with appropriate antibiotic therapy. Perineal abscess growing multiple bacteria. Blood cultures negative. Patient states she is feeling better and has no new complaints today. Reason For Visit: HYPERCALCEMIA,ACUTE METABOLIC ENCEPHALOPATHY, Physical Exam Vital Signs: Temp Pulse Resp BP Pulse Ox 97.8 F 66 28 H 123/65 94 11/15/19 07:54 11/15/19 07:54 11/15/19 07:54 11/15/19 07:54 11/15/19 07:54 Intake & Output 11/14/19 11/15/19 11/16/19 06:59 06:59 06:59 Intake Total 2147 3697 300 Output Total 4325 3700 Balance -2178 -3 300 Weight 110.5 kg 110.9 kg General appearance: PRESENT: no acute distress, well-developed, well-nourished Head exam: PRESENT: atraumatic, normocephalic Eye exam: PRESENT: conjunctiva pink Mouth exam: PRESENT: moist Respiratory exam: PRESENT: clear to auscultation paula. ABSENT: rales, rhonchi, wheezes Cardiovascular exam: PRESENT: RRR. ABSENT: diastolic murmur, rubs, systolic murmur GI/Abdominal exam: PRESENT: normal bowel sounds, soft. ABSENT: distended, guarding, mass, organolmegaly, rebound, tenderness Rectal exam: PRESENT: deferred Extremities exam: ABSENT: pedal edema Neurological exam: PRESENT: alert, awake, oriented to person, oriented to place, oriented to time Psychiatric exam: PRESENT: appropriate affect Skin exam: PRESENT: dry, warm Results Laboratory Results: 11/15/19 04:09 11/15/19 09:00 11/15/19 11/15/19 11/15/19 04:09 04:09 09:00 WBC 15.7 H RBC 3.10 L Hgb 8.6 L Hct 26.3 L MCV 85 MCH 27.7 MCHC 32.7 RDW 17.6 H Plt Count 135 L Seg Neutrophils % Not Reportable Sodium 139.0 Potassium 3.8 Chloride 112 H Carbon Dioxide 24 Anion Gap 3 L BUN 8 Creatinine 0.72 0.73 Est GFR ( Amer) > 60 > 60 Glucose 120 H Calcium 7.0 L* Magnesium 1.9 Total Bilirubin 0.2 AST 14 Alkaline Phosphatase 81 Total Protein 4.7 L Albumin 2.3 L 11/05/19 08:59 NT-Pro-B Natriuret Pep 2270 H Impressions: Head CT 11/04/19 00:00 IMPRESSION: No acute intracranial hemorrhage or mass effect. Mild chronic microvascular ischemic change with remote lacunar infarct about the anterior aspect of the left lentiform nucleus extending into the myles radiata. Widespread lucent lesions throughout the calvarium and skull base, concerning for either metastatic disease or multiple myeloma. Correlate. TECHNICAL DOCUMENTATION: Quality ID # 436: Final reports with documentation of one or more dose reduction techniques (e.g., Automated exposure control, adjustment of the mA and/or kV according to patient size, use of iterative reconstruction technique) copyright 2011 [employer]- All Rights Reserved Chest X-Ray 11/06/19 08:04 IMPRESSION: Unchanged radiographic appearance of the chest. Abdomen/Pelvis CT 11/08/19 00:00 IMPRESSION: Left labial wound packing without evidence of complication or adverse trend. Bilateral flank subcutaneous fat stranding asymmetric to the left is a nonspecific finding. No focal fluid collections/ abscesses. Other chronic and incidental findings as detailed above. Skeletal Survey 11/11/19 08:08 IMPRESSION: Findings as described. There appear to be multiple small lytic lesions in the calvarium particularly. Assessment and Plan - Diagnosis (1) Necrotizing fasciitis of pelvic region and thigh Is this a current diagnosis for this admission?: Yes Plan: Per previous physician: "Polymicrobial necrotizing fasciitis of her left labia and left perineal region. Status post aggressive left labial, and perineal debridement on 11/06/2019. Surgery is following and currently states no indication for further debridement. Wound culture is growing Bacteroides, Peptostreptococcus and group F beta strep all of which are recommended for treatment with Unasyn. Day #7 IV antibiotics. Day #3 IV metronidazole. Day #3 IV ceftriaxone. Received 5 days of IV Unasyn. ID has been consulted. Recommendation is IV ceftriaxone and IV metronidazole while inpatient and switching to p.o. Augmentin 500/125 3 times daily upon discharge. A total of 2 weeks of antibiotics recommended from time of good source control. Leukocytosis continues to trend up to 17 today. Currently on ceftriaxone and Flagyl. I have added vancomycin. Continue to monitor CBC." Ceftriaxone/Flagyl/vancomycin continued WBC trending down Blood cultures negative Perineal abscess cultures growing group F beta Streptococcus, Peptostreptococcus, Bacteroides fragilis (2) Acute kidney injury (nontraumatic) Is this a current diagnosis for this admission?: Yes Plan: Secondary to hypercalcemia and sepsis. -resolved. (3) Abscess of left buttock Is this a current diagnosis for this admission?: Yes Plan: General surgery following They recommended dressing changes, continue intravenous antibiotics. (4) Acute metabolic encephalopathy Is this a current diagnosis for this admission?: Yes Plan: -Obtunded on admission secondary to hypercalcemia and severe sepsis. -Resolved (5) Altered mental status Qualifiers: Altered mental status type: delirium Qualified Code(s): R41.0 - Disorientation, unspecified Is this a current diagnosis for this admission?: Yes (6) Atrial fibrillation with RVR Is this a current diagnosis for this admission?: Yes Plan: -single episode of paroxysmal atrial fibrillation caused by severe sepsis. -No prior history and not longstanding. Currently NSR -tele -monitor for recurrence (7) Cardiomegaly Is this a current diagnosis for this admission?: Yes (8) HHNC (hyperglycemic hyperosmolar nonketotic coma) Is this a current diagnosis for this admission?: Yes (9) Hypercalcemia Is this a current diagnosis for this admission?: Yes Plan: -Secondary to multiple myeloma. Other work-up including PTH, vitamin D 25, vitamin D 125, vitamin A, PTHrP were had and normal low appropriately low. Patient received zoledronate and calcitonin on the first 2 days of admission. -calcium persistently low, repleting IV (10) Hypernatremia Is this a current diagnosis for this admission?: Yes (11) Hypertension Is this a current diagnosis for this admission?: Yes (12) Myeloma Qualifiers: Multiple myeloma remission status: not in remission Qualified Code(s): C90.00 - Multiple myeloma not having achieved remission Is this a current diagnosis for this admission?: Yes Plan: -New dx of multiple myeloma by oncology. -Skeletal survey positive for multiple lytic lesions. -oncology plans to pursue chemotherapy outpatient. (13) Neuropathy Is this a current diagnosis for this admission?: Yes (15) Uncontrolled type 2 diabetes mellitus Qualifiers: Glycemic state: with hyperglycemia Qualified Code(s): E11.65 - Type 2 diabetes mellitus with hyperglycemia Is this a current diagnosis for this admission?: Yes Plan: -now controlled. Initially presented with HHN K and was on insulin drip which has resolved. -basal, sliding scale and correctional insulin. Hypoglycemia protocol. Accu- Cheks. -Outpatient PCP follow-up. - Time Time Spent with patient: 25-34 minutes Medications reviewed and adjusted accordingly: Yes - Inpatient Certification Based on my medical assessment, after consideration of the patient's comorbidities, presenting symptoms, or acuity I expect that the services needed warrant INPATIENT care.: Yes I certify that my determination is in accordance with my understanding of Medicare's requirements for reasonable and necessary INPATIENT services [42 CFR 412.3e].: Yes Medical Necessity: Significant Comorbidiites Make Outpatient Treatment Too Risky, Need Close Monitoring Due to Risk of Patient Decompensation, Need for IV Antibiotics
[2019-11-16] MEDS: OXYCODONE-ACETAMINOPHEN 5-325 MG TABLET PO PRN ×3 (00:10→20:05)
[2019-11-16] MEDS: VANCOMYCIN HCL 1,000 MG in DEXTROSE 5%-WATER 250 ML IV SCH ×3 (02:30→18:05)
[2019-11-16] MEDS: METRONIDAZOLE 500 MG/NS RTU 500 MG/100 ML RTUPB IV SCH ×2 (05:34→17:59)
[2019-11-16] MEDS: HEPARIN SOD (PORCINE) 5,000 UNIT/ML 1 ML VIAL SUBCUT SCH ×3 (06:56→22:14)
[2019-11-16] MEDS: INSULIN REG, HUMAN 100 UNIT/ML 3 ML VIAL (PYX) SUBCUT SCH ×4 (08:28→22:19)
[2019-11-16] MEDS: POTASSIUM CHLORIDE 10 MEQ TABLET.ER PO SCH (10:06)
[2019-11-16] MEDS: MAGNESIUM OXIDE 400 MG TABLET PO SCH ×2 (10:06→17:58)
[2019-11-16] MEDS: GABAPENTIN 300 MG CAPSULE PO SCH ×2 (10:06→22:21)
[2019-11-16] MEDS: INSULIN GLARGINE,HUM.REC.ANLOG 1,000 UNIT/10 ML VIAL SUBCUT SCH ×2 (10:09→22:20)
[2019-11-16] MEDS: CEFTRIAXONE 2 GM/D5W RTU 2 GM/50 ML RTUPB IV SCH (10:10)
[2019-11-16 10:22] LABS: HEMATOCRIT 26.1 % (36.0-47.0); HEMOGLOBIN 8.5 g/dL (12.0-15.5); MEAN CORPUSCULAR HEMOGLOBIN 27.7 pg (27.0-33.4); MEAN CORPUSCULAR HGB CONC 32.5 g/dL (32.0-36.0); MEAN CORPUSCULAR VOLUME 85 fl (80-97); PLATELET COUNT 146 10^3/uL (150-450); RED BLOOD COUNT 3.07 10^6/uL (3.72-5.28); RED CELL DISTRIBUTION WIDTH 17.9 % (11.5-14.0); WHITE BLOOD COUNT 12.7 10^3/uL (4.0-10.5)
[2019-11-16 10:41] LABS: BLOOD UREA NITROGEN 6 mg/dL (7-20); GLUCOSE 175 mg/dL (75-110)
[2019-11-16 10:45] LABS: ABSOLUTE LYMPHOCYTES# (MANUAL) 0.8 10^3/uL (0.5-4.7); ABSOLUTE MONOCYTES # (MANUAL) 0.9 10^3/uL (0.1-1.4); BAND NEUTROPHILS % (MANUAL) 2 % (3-5); BASOPHILS % (MANUAL) 0 % (0-2); EOSINOPHILS % (MANUAL) 0 % (0-6); LYMPHOCYTES % (MANUAL) 6 % (13-45); MONOCYTES % (MANUAL) 7 % (3-13); SEGMENTED NEUTROPHILS % (MAN) 85 % (42-78); TOTAL CELLS COUNTED 100
[2019-11-16 10:47] LABS: ANISOCYTOSIS 1+; OVALOCYTES SLIGHT; PLATELET COMMENT DECREASED; POLYCHROMASIA SLIGHT
[2019-11-16 10:48] LABS: CARBON DIOXIDE 24 mmol/L (22-30); CHLORIDE 111 mmol/L (98-107)
[2019-11-16 10:51] LABS: ANION GAP 3 (5-19)
[2019-11-16 10:52] LABS: CALCIUM 6.9 mg/dL (8.4-10.2)
--- NOTE | 2019-11-16 16:51 | PDOC PROGRESS REPORT ---
Subjective Progress Note for:: 11/16/19 Subjective:: 11/15/2019 Patient admitted for perineal abscesses and found to also have lytic bone lesions consistent with multiple myeloma. She has been treated with appropriate antibiotics as well as incision and drainage of the abscesses by surgery. Chemotherapy for her multiple myeloma is currently on hold while we treat her pelvic infection. Her calcium is significantly low and this will be replaced with additional IV calcium today. WBC is dropping, consistent with appropriate antibiotic therapy. Perineal abscess growing multiple bacteria. Blood cultures negative. Patient states she is feeling better and has no new complaints today. 08/16/2019 Patient seems to be doing better today but her calcium is still significantly low at 6.9. We will check an ionized calcium and give her IV repletion. I looked at her wounds today with the assistance of our nurse and the patient seems to be healing quite well. She is still complaining of significant discomfort when she moves. I would like to remove her Puente catheter but the patient is adamantly refusing today and insists that we start this tomorrow morning. She is able to get to the bedside commode safely according to PT evaluation. Will need to avoid getting urine or stool on her wounds to ensure they heal. Patient may soon be appropriate for discharge though it is unclear if she will be going to a nursing facility for extensive wound care or if she can arrange transportation to a wound center. Per my discussion with the patient, she does not have transportation that would take her to a wound center. We will need social work to look into this. Reason For Visit: HYPERCALCEMIA,ACUTE METABOLIC ENCEPHALOPATHY, Physical Exam Vital Signs: Temp Pulse Resp BP Pulse Ox 98.0 F 73 18 149/67 H 93 11/16/19 08:27 11/16/19 14:00 11/16/19 08:27 11/16/19 08:27 11/16/19 08:27 Intake & Output 11/15/19 11/16/19 11/17/19 06:59 06:59 06:59 Intake Total 3692 410 Output Total 8373 1644 - Weight 110.9 kg 109.9 kg 109.9 kg General appearance: PRESENT: no acute distress, obese, well-developed, well- nourished Head exam: PRESENT: atraumatic, normocephalic Eye exam: PRESENT: conjunctiva pink Mouth exam: PRESENT: moist Respiratory exam: PRESENT: clear to auscultation paula. ABSENT: rales, rhonchi, wheezes Cardiovascular exam: PRESENT: RRR. ABSENT: diastolic murmur, rubs, systolic murmur GI/Abdominal exam: PRESENT: normal bowel sounds, soft. ABSENT: distended, guarding, mass, organolmegaly, rebound, tenderness Neurological exam: PRESENT: alert, awake, oriented to person, oriented to place, oriented to time, oriented to situation Psychiatric exam: PRESENT: appropriate affect Skin exam: PRESENT: other - Perineal wounds well appearing and healing Results Laboratory Results: 11/16/19 09:47 11/16/19 09:47 11/16/19 11/16/19 09:47 09:47 WBC 12.7 H RBC 3.07 L Hgb 8.5 L Hct 26.1 L MCV 85 MCH 27.7 MCHC 32.5 RDW 17.9 H Plt Count 146 L Seg Neutrophils % Not Reportable Sodium 138.4 Potassium 4.0 Chloride 111 H Carbon Dioxide 24 Anion Gap 3 L BUN 6 L Creatinine 0.65 Est GFR ( Amer) > 60 Glucose 175 H Calcium 6.9 L* 11/05/19 08:59 NT-Pro-B Natriuret Pep 2270 H Impressions: Head CT 11/04/19 00:00 IMPRESSION: No acute intracranial hemorrhage or mass effect. Mild chronic microvascular ischemic change with remote lacunar infarct about the anterior aspect of the left lentiform nucleus extending into the myles radiata. Widespread lucent lesions throughout the calvarium and skull base, concerning for either metastatic disease or multiple myeloma. Correlate. TECHNICAL DOCUMENTATION: Quality ID # 436: Final reports with documentation of one or more dose reduction techniques (e.g., Automated exposure control, adjustment of the mA and/or kV according to patient size, use of iterative reconstruction technique) copyright 2011 [employer]- All Rights Reserved Chest X-Ray 11/06/19 08:04 IMPRESSION: Unchanged radiographic appearance of the chest. Abdomen/Pelvis CT 11/08/19 00:00 IMPRESSION: Left labial wound packing without evidence of complication or adverse trend. Bilateral flank subcutaneous fat stranding asymmetric to the left is a nonspecific finding. No focal fluid collections/ abscesses. Other chronic and incidental findings as detailed above. Skeletal Survey 11/11/19 08:08 IMPRESSION: Findings as described. There appear to be multiple small lytic lesions in the calvarium particularly. Assessment and Plan - Diagnosis (1) Necrotizing fasciitis of pelvic region and thigh Is this a current diagnosis for this admission?: Yes Plan: Per previous physician: "Polymicrobial necrotizing fasciitis of her left labia and left perineal region. Status post aggressive left labial, and perineal debridement on 11/06/2019. Surgery is following and currently states no indication for further debridement. Wound culture is growing Bacteroides, Peptostreptococcus and group F beta strep all of which are recommended for treatment with Unasyn. Day #7 IV antibiotics. Day #3 IV metronidazole. Day #3 IV ceftriaxone. Received 5 days of IV Unasyn. ID has been consulted. Recommendation is IV ceftriaxone and IV metronidazole while inpatient and switching to p.o. Augmentin 500/125 3 times daily upon discharge. A total of 2 weeks of antibiotics recommended from time of good source control. Leukocytosis continues to trend up to 17 today. Currently on ceftriaxone and Flagyl. I have added vancomycin. Continue to monitor CBC." Ceftriaxone/Flagyl/vancomycin continued WBC trending down Blood cultures negative Perineal abscess cultures growing group F beta Streptococcus, Peptostreptococcus, Bacteroides fragilis 11/16/2019 Wounds are healing and doing quite well at this time Patient will need extensive wound care to ensure she heals appropriately after discharge Continue IV antibiotics (2) Acute kidney injury (nontraumatic) Is this a current diagnosis for this admission?: Yes (3) Abscess of left buttock Is this a current diagnosis for this admission?: Yes (4) Acute metabolic encephalopathy Is this a current diagnosis for this admission?: Yes (5) Altered mental status Qualifiers: Altered mental status type: delirium Qualified Code(s): R41.0 - D isorientation, unspecified Is this a current diagnosis for this admission?: Yes (6) Atrial fibrillation with RVR Is this a current diagnosis for this admission?: Yes (7) Cardiomegaly Is this a current diagnosis for this admission?: Yes (8) HHNC (hyperglycemic hyperosmolar nonketotic coma) Is this a current diagnosis for this admission?: Yes (9) Hypercalcemia Is this a current diagnosis for this admission?: Yes (10) Hypernatremia Is this a current diagnosis for this admission?: Yes (11) Hypertension Is this a current diagnosis for this admission?: Yes (12) Myeloma Qualifiers: Multiple myeloma remission status: not in remission Qualified Code(s): C90.00 - Multiple myeloma not having achieved remission Is this a current diagnosis for this admission?: Yes (13) Neuropathy Is this a current diagnosis for this admission?: Yes (15) Uncontrolled type 2 diabetes mellitus Qualifiers: Glycemic state: with hyperglycemia Qualified Code(s): E11.65 - Type 2 diabetes mellitus with hyperglycemia Is this a current diagnosis for this admission?: Yes (16) Hypocalcemia Is this a current diagnosis for this admission?: Yes Plan: Occurred after being given calcium lowering medications for initial hypercalcem ia Ionized calcium Replete calcium - Time Time Spent with patient: 15-24 minutes Medications reviewed and adjusted accordingly: Yes Anticipated discharge: SNF Within: within 48 hours - Inpatient Certification Based on my medical assessment, after consideration of the patient's comorbidities, presenting symptoms, or acuity I expect that the services needed warrant INPATIENT care.: Yes I certify that my determination is in accordance with my understanding of Medicare's requirements for reasonable and necessary INPATIENT services [42 CFR 412.3e].: Yes Medical Necessity: Significant Comorbidiites Make Outpatient Treatment Too Risky, Need Close Monitoring Due to Risk of Patient Decompensation, Need for IV Antibiotics, Risk of Complication if Not Cared For in Hospital, Risk of Diagnosis Which Will Require Inpatient Eval/Care/Monitoring
[2019-11-16] MEDS ORDERED: CALCIUM GLUCONATE 1 GM/NS 50 ML RTU IV ONE (19:15)
[2019-11-17] MEDS: VANCOMYCIN HCL 1,000 MG in DEXTROSE 5%-WATER 250 ML IV SCH ×3 (02:48→18:23)
[2019-11-17] MEDS: OXYCODONE-ACETAMINOPHEN 5-325 MG TABLET PO PRN ×2 (02:52→17:16)
[2019-11-17 05:47] LABS: HEMATOCRIT 25.9 % (36.0-47.0); HEMOGLOBIN 8.4 g/dL (12.0-15.5); MEAN CORPUSCULAR HEMOGLOBIN 27.6 pg (27.0-33.4); MEAN CORPUSCULAR HGB CONC 32.5 g/dL (32.0-36.0); MEAN CORPUSCULAR VOLUME 85 fl (80-97); PLATELET COUNT 148 10^3/uL (150-450); RED BLOOD COUNT 3.04 10^6/uL (3.72-5.28); RED CELL DISTRIBUTION WIDTH 17.3 % (11.5-14.0); WHITE BLOOD COUNT 11.5 10^3/uL (4.0-10.5)
[2019-11-17 06:01] LABS: BLOOD UREA NITROGEN 4 mg/dL (7-20); CALCIUM 7.1 mg/dL (8.4-10.2); CARBON DIOXIDE 23 mmol/L (22-30); GLUCOSE 140 mg/dL (75-110); POTASSIUM 4.2 mmol/L (3.6-5.0)
[2019-11-17 06:07] LABS: CHLORIDE 111 mmol/L (98-107)
[2019-11-17 06:08] LABS: ANION GAP 4 (5-19)
[2019-11-17 06:38] LABS: ABSOLUTE LYMPHOCYTES# (MANUAL) 1.6 10^3/uL (0.5-4.7); ABSOLUTE MONOCYTES # (MANUAL) 0.1 10^3/uL (0.1-1.4); BAND NEUTROPHILS % (MANUAL) 6 % (3-5); BASOPHILS % (MANUAL) 0 % (0-2); EOSINOPHILS % (MANUAL) 1 % (0-6); LYMPHOCYTES % (MANUAL) 14 % (13-45); MONOCYTES % (MANUAL) 1 % (3-13); SEGMENTED NEUTROPHILS % (MAN) 78 % (42-78); TOTAL CELLS COUNTED 100
[2019-11-17 06:42] LABS: ANISOCYTOSIS 1+; HYPOCHROMASIA SLIGHT; OVALOCYTES SLIGHT; PLATELET COMMENT DECREASED; POIKILOCYTOSIS SLIGHT; POLYCHROMASIA SLIGHT; TOXIC GRANULATION SLIGHT
[2019-11-17] MEDS: HEPARIN SOD (PORCINE) 5,000 UNIT/ML 1 ML VIAL SUBCUT SCH ×3 (06:50→22:08)
[2019-11-17] MEDS: METRONIDAZOLE 500 MG/NS RTU 500 MG/100 ML RTUPB IV SCH ×2 (06:51→17:03)
[2019-11-17] MEDS: INSULIN REG, HUMAN 100 UNIT/ML 3 ML VIAL (PYX) SUBCUT SCH ×4 (07:41→22:08)
[2019-11-17] MEDS: POTASSIUM CHLORIDE 10 MEQ TABLET.ER PO SCH (10:09)
[2019-11-17] MEDS: MAGNESIUM OXIDE 400 MG TABLET PO SCH ×2 (10:10→17:16)
[2019-11-17] MEDS: GABAPENTIN 300 MG CAPSULE PO SCH ×2 (10:10→22:13)
[2019-11-17] MEDS: INSULIN GLARGINE,HUM.REC.ANLOG 1,000 UNIT/10 ML VIAL SUBCUT SCH ×2 (10:15→22:13)
[2019-11-17] MEDS: CEFTRIAXONE 2 GM/D5W RTU 2 GM/50 ML RTUPB IV SCH (10:27)
--- NOTE | 2019-11-17 18:19 | PDOC PROGRESS REPORT ---
Subjective Progress Note for:: 11/17/19 Subjective:: 11/15/2019 Patient admitted for perineal abscesses and found to also have lytic bone lesions consistent with multiple myeloma. She has been treated with appropriate antibiotics as well as incision and drainage of the abscesses by surgery. Chemotherapy for her multiple myeloma is currently on hold while we treat her pelvic infection. Her calcium is significantly low and this will be replaced with additional IV calcium today. WBC is dropping, consistent with appropriate antibiotic therapy. Perineal abscess growing multiple bacteria. Blood cultures negative. Patient states she is feeling better and has no new complaints today. 11/16/2019 Patient seems to be doing better today but her calcium is still significantly low at 6.9. We will check an ionized calcium and give her IV repletion. I looked at her wounds today with the assistance of our nurse and the patient seems to be healing quite well. She is still complaining of significant discomfort when she moves. I would like to remove her Puente catheter but the patient is adamantly refusing today and insists that we start this tomorrow morning. She is able to get to the bedside commode safely according to PT evaluation. Will need to avoid getting urine or stool on her wounds to ensure they heal. Patient may soon be appropriate for discharge though it is unclear if she will be going to a nursing facility for extensive wound care or if she can arrange transportation to a wound center. Per my discussion with the patient, she does not have transportation that would take her to a wound center. We will need social work to look into this. 11/17/2019 Patient's calcium is finally starting to rise again at 7.1 today. Ionized calcium at 1.05. We will give some additional calcium to make sure this continues its upward trend. Her wounds continue to heal and she states that her pain associate with these wounds is gradually waning each day. She is adamant that she wants to go home rather than to a nursing facility but her family has reportedly told case management that they cannot care for the patient at home and she must go to a facility. This may be beneficial as the patient will need extensive wound care to ensure she does not get urine and stool in her perineal wounds. She is continued on antibiotics as before. Suspect she will be appropriate for oral antibiotics to finish the course after discharge. She will possibly leave hospital in 1 to 2 days assuming she has a bed acceptance. Reason For Visit: HYPERCALCEMIA,ACUTE METABOLIC ENCEPHALOPATHY, Physical Exam Vital Signs: Temp Pulse Resp BP Pulse Ox 97.5 F 68 16 136/60 H 99 11/17/19 11:34 11/17/19 14:00 11/17/19 11:34 11/17/19 11:34 11/17/19 11:34 Intake & Output 11/16/19 11/17/19 11/18/19 06:59 06:59 06:59 Intake Total 4108 2322 100 Output Total 6019 3600 Balance -1942 -1278 100 Weight 109.9 kg 109.9 kg General appearance: PRESENT: no acute distress, well-developed, well-nourished Head exam: PRESENT: atraumatic, normocephalic Eye exam: PRESENT: conjunctiva pink Mouth exam: PRESENT: moist Respiratory exam: PRESENT: clear to auscultation paula. ABSENT: rales, rhonchi, wheezes Cardiovascular exam: PRESENT: RRR. ABSENT: diastolic murmur, rubs, systolic murmur GI/Abdominal exam: PRESENT: normal bowel sounds, soft. ABSENT: distended, guarding, mass, organolmegaly, rebound, tenderness Rectal exam: PRESENT: deferred Neurological exam: PRESENT: alert, awake, oriented to person, oriented to place, oriented to time, oriented to situation Psychiatric exam: PRESENT: appropriate affect Skin exam: PRESENT: dry, warm, other - Healing wounds groin/perineum Results Laboratory Results: 11/17/19 04:58 11/17/19 04:58 11/16/19 11/17/19 11/17/19 19:56 04:58 04:58 WBC 11.5 H RBC 3.04 L Hgb 8.4 L Hct 25.9 L MCV 85 MCH 27.6 MCHC 32.5 RDW 17.3 H Plt Count 148 L Seg Neutrophils % Not Reportable Sodium 138.1 Potassium 4.2 Chloride 111 H Carbon Dioxide 23 Anion Gap 4 L BUN 4 L Creatinine 0.59 Est GFR ( Amer) > 60 Glucose 140 H Calcium 7.1 L Ionized Calcium Myron 1.05 L 11/05/19 08:59 NT-Pro-B Natriuret Pep 2270 H Impressions: Head CT 11/04/19 00:00 IMPRESSION: No acute intracranial hemorrhage or mass effect. Mild chronic microvascular ischemic change with remote lacunar infarct about the anterior aspect of the left lentiform nucleus extending into the myles radiata. Widespread lucent lesions throughout the calvarium and skull base, concerning for either metastatic disease or multiple myeloma. Correlate. TECHNICAL DOCUMENTATION: Quality ID # 436: Final reports with documentation of one or more dose reduction techniques (e.g., Automated exposure control, adjustment of the mA and/or kV according to patient size, use of iterative reconstruction technique) copyright 2011 [employer]- All Rights Reserved Chest X-Ray 11/06/19 08:04 IMPRESSION: Unchanged radiographic appearance of the chest. Abdomen/Pelvis CT 11/08/19 00:00 IMPRESSION: Left labial wound packing without evidence of complication or adverse trend. Bilateral flank subcutaneous fat stranding asymmetric to the lef t is a nonspecific finding. No focal fluid collections/ abscesses. Other chronic and incidental findings as detailed above. Skeletal Survey 11/11/19 08:08 IMPRESSION: Findings as described. There appear to be multiple small lytic lesions in the calvarium particularly. Assessment and Plan - Diagnosis (1) Necrotizing fasciitis of pelvic region and thigh Is this a current diagnosis for this admission?: Yes Plan: Per previous physician: "Polymicrobial necrotizing fasciitis of her left labia and left perineal region. Status post aggressive left labial, and perineal debridement on 11/06/2019. Surgery is following and currently states no indication for further debridement. Wound culture is growing Bacteroides, Peptostreptococcus and group F beta strep all of which are recommended for treatment with Unasyn. Day #7 IV antibiotics. Day #3 IV metronidazole. Day #3 IV ceftriaxone. Received 5 days of IV Unasyn. ID has been consulted. Recommendation is IV ceftriaxone and IV metronidazole while inpatient and switching to p.o. Augmentin 500/125 3 times daily upon discharge. A total of 2 weeks of antibiotics recommended from time of good source control. Leukocytosis continues to trend up to 17 today. Currently on ceftriaxone and Flagyl. I have added vancomycin. Continue to monitor CBC." Ceftriaxone/Flagyl/vancomycin continued WBC trending down Blood cultures negative Perineal abscess cultures growing group F beta Streptococcus, Pep tostreptococcus, Bacteroides fragilis 11/16/2019 Wounds are healing and doing quite well at this time Patient will need extensive wound care to ensure she heals appropriately after discharge Continue IV antibiotics 11/17/2019 Patient adamant she does not want to go to a nursing facility but this is what is best for her wound care and family has stated they cannot care for patient at home. Currently looking for about acceptance (2) Acute kidney injury (nontraumatic) Is this a current diagnosis for this admission?: Yes Plan: Secondary to hypercalcemia and sepsis. -resolved. (3) Abscess of left buttock Is this a current diagnosis for this admission?: Yes (4) Acute metabolic encephalopathy Is this a current diagnosis for this admission?: Yes (5) Altered mental status Qualifiers: Altered mental status type: delirium Qualified Code(s): R41.0 - Disorientation, unspecified Is this a current diagnosis for this admission?: Yes (6) Atrial fibrillation with RVR Is this a current diagnosis for this admission?: Yes (7) Cardiomegaly Is this a current diagnosis for this admission?: Yes (8) HHNC (hyperglycemic hyperosmolar nonketotic coma) Is this a current diagnosis for this admission?: Yes (9) Hypercalcemia Is this a current diagnosis for this admission?: Yes (10) Hypernatremia Is this a current diagnosis for this admission?: Yes (11) Hypertension Is this a current diagnosis for this admission?: Yes (12) Myeloma Qualifiers: Multiple myeloma remission status: not in remission Qualified Code(s): C90.00 - Multiple myeloma not having achieved remission Is this a current diagnosis for this admission?: Yes (13) Neuropathy Is this a current diagnosis for this admission?: Yes (15) Uncontrolled type 2 diabetes mellitus Qualifiers: Glycemic state: with hyperglycemia Qualified Code(s): E11.65 - Type 2 diabetes mellitus with hyperglycemia Is this a current diagnosis for this admission?: Yes (16) Hypocalcemia Is this a current diagnosis for this admission?: Yes Plan: Occurred after being given calcium lowering medications for initial hypercalcemia Ionized calcium 1.05 Replete calcium IV again - Time Time Spent with patient: 15-24 minutes Medications reviewed and adjusted accordingly: Yes Anticipated discharge: SNF - Inpatient Certification Based on my medical assessment, after consideration of the patient's comorbidities, presenting symptoms, or acuity I expect that the services needed warrant INPATIENT care.: Yes I certify that my determination is in accordance with my understanding of Medicare's requirements for reasonable and necessary INPATIENT services [42 CFR 412.3e].: Yes Medical Necessity: Significant Comorbidiites Make Outpatient Treatment Too Risky, Need Close Monitoring Due to Risk of Patient Decompensation, Need for IV Antibiotics, Risk of Complication if Not Cared For in Hospital, Risk of Diagnosis Which Will Require Inpatient Eval/Care/Monitoring
[2019-11-17] MEDS ORDERED: CALCIUM GLUCONATE 1000 MG/10 ML INJ IV ONE (19:30)
[2019-11-17] MEDS: ACETAMINOPHEN 325 MG TABLET PO PRN (19:55)
[2019-11-18] MEDS: VANCOMYCIN HCL 1,000 MG in DEXTROSE 5%-WATER 250 ML IV SCH ×3 (02:20→18:07)
[2019-11-18] MEDS: OXYCODONE-ACETAMINOPHEN 5-325 MG TABLET PO PRN ×3 (03:02→16:58)
[2019-11-18] MEDS: METRONIDAZOLE 500 MG/NS RTU 500 MG/100 ML RTUPB IV SCH ×2 (05:14→18:06)
[2019-11-18] MEDS: HEPARIN SOD (PORCINE) 5,000 UNIT/ML 1 ML VIAL SUBCUT SCH ×3 (05:15→22:33)
[2019-11-18 05:16] LABS: HEMATOCRIT 26.8 % (36.0-47.0); MEAN CORPUSCULAR HEMOGLOBIN 28.5 pg (27.0-33.4); MEAN CORPUSCULAR HGB CONC 33.4 g/dL (32.0-36.0); MEAN CORPUSCULAR VOLUME 85 fl (80-97); PLATELET COUNT 170 10^3/uL (150-450); RED BLOOD COUNT 3.15 10^6/uL (3.72-5.28)
[2019-11-18 05:41] LABS: ANION GAP 6 (5-19); BLOOD UREA NITROGEN 5 mg/dL (7-20); CALCIUM 7.6 mg/dL (8.4-10.2); CARBON DIOXIDE 22 mmol/L (22-30); CHLORIDE 111 mmol/L (98-107); GLUCOSE 143 mg/dL (75-110); POTASSIUM 4.4 mmol/L (3.6-5.0)
[2019-11-18 06:03] LABS: ABSOLUTE LYMPHOCYTES# (MANUAL) 0.7 10^3/uL (0.5-4.7); ABSOLUTE MONOCYTES # (MANUAL) 0.1 10^3/uL (0.1-1.4); BAND NEUTROPHILS % (MANUAL) 3 % (3-5); BASOPHILS % (MANUAL) 2 % (0-2); EOSINOPHILS % (MANUAL) 2 % (0-6); LYMPHOCYTES % (MANUAL) 7 % (13-45); MONOCYTES % (MANUAL) 1 % (3-13); NUCLEATED RED BLOOD CELLS 1 /100 WBC (0); SEGMENTED NEUTROPHILS % (MAN) 85 % (42-78); TOTAL CELLS COUNTED 100
[2019-11-18 06:05] LABS: ANISOCYTOSIS 1+; HYPOCHROMASIA SLIGHT; POLYCHROMASIA SLIGHT
[2019-11-18 06:06] LABS: OVALOCYTES SLIGHT; PLATELET COMMENT ADEQUATE
[2019-11-18] MEDS: INSULIN REG, HUMAN 100 UNIT/ML 3 ML VIAL (PYX) SUBCUT SCH ×4 (09:09→22:34)
[2019-11-18] MEDS: POTASSIUM CHLORIDE 10 MEQ TABLET.ER PO SCH (09:10)
[2019-11-18] MEDS: MAGNESIUM OXIDE 400 MG TABLET PO SCH ×2 (09:10→18:07)
[2019-11-18] MEDS: GABAPENTIN 300 MG CAPSULE PO SCH ×2 (09:10→22:34)
[2019-11-18] MEDS: CEFTRIAXONE 2 GM/D5W RTU 2 GM/50 ML RTUPB IV SCH (09:12)
[2019-11-18] MEDS: INSULIN GLARGINE,HUM.REC.ANLOG 1,000 UNIT/10 ML VIAL SUBCUT SCH ×2 (10:25→22:37)
--- NOTE | 2019-11-18 18:45 | PDOC PROGRESS REPORT ---
Subjective Progress Note for:: 11/18/19 Subjective:: 11/15/2019 Patient admitted for perineal abscesses and found to also have lytic bone lesions consistent with multiple myeloma. She has been treated with appropriate antibiotics as well as incision and drainage of the abscesses by surgery. Chemotherapy for her multiple myeloma is currently on hold while we treat her pelvic infection. Her calcium is significantly low and this will be replaced with additional IV calcium today. WBC is dropping, consistent with appropriate antibiotic therapy. Perineal abscess growing multiple bacteria. Blood cultures negative. Patient states she is feeling better and has no new complaints today. 11/16/2019 Patient seems to be doing better today but her calcium is still significantly low at 6.9. We will check an ionized calcium and give her IV repletion. I looked at her wounds today with the assistance of our nurse and the patient seems to be healing quite well. She is still complaining of significant discomfort when she moves. I would like to remove her Puente catheter but the patient is adamantly refusing today and insists that we start this tomorrow morning. She is able to get to the bedside commode safely according to PT evaluation. Will need to avoid getting urine or stool on her wounds to ensure they heal. Patient may soon be appropriate for discharge though it is unclear if she will be going to a nursing facility for extensive wound care or if she can arrange transportation to a wound center. Per my discussion with the patient, she does not have transportation that would take her to a wound center. We will need social work to look into this. 11/17/2019 Patient's calcium is finally starting to rise again at 7.1 today. Ionized calcium at 1.05. We will give some additional calcium to make sure this continues its upward trend. Her wounds continue to heal and she states that her pain associate with these wounds is gradually waning each day. She is adamant that she wants to go home rather than to a nursing facility but her family has reportedly told case management that they cannot care for the patient at home and she must go to a facility. This may be beneficial as the patient will need extensive wound care to ensure she does not get urine and stool in her perineal wounds. She is continued on antibiotics as before. Suspect she will be appropriate for oral antibiotics to finish the course after discharge. She will possibly leave hospital in 1 to 2 days assuming she has a bed acceptance. 11/18/2019 I had a long discussion with the patient today about the need for extensive w ound care and she did agree that she would benefit from nursing care at a nursing facility rather than going home. I also discussed this with the protective services case worker who is working on finding placement for her. Overall patient is doing well and her wound seems to be healing. We will continue her on current antibiotics with the plans to transition to oral antibiotics at discharge. Patient has no new complaints today and can probably discharge to facility tomorrow if she is accepted. Reason For Visit: HYPERCALCEMIA,ACUTE METABOLIC ENCEPHALOPATHY, Physical Exam Vital Signs: Temp Pulse Resp BP Pulse Ox 97.5 F 94 22 H 131/58 H 96 11/18/19 07:43 11/18/19 14:00 11/18/19 07:43 11/18/19 07:43 11/18/19 07:43 Intake & Output 11/17/19 11/18/19 11/19/19 06:59 06:59 06:59 Intake Total 2322 1224 400 Output Total 3600 Balance -1278 1224 400 Weight 109.9 kg 110 kg General appearance: PRESENT: no acute distress, well-developed, well-nourished Head exam: PRESENT: atraumatic, normocephalic Eye exam: PRESENT: conjunctiva pink Mouth exam: PRESENT: moist Respiratory exam: PRESENT: clear to auscultation paula. ABSENT: rales, rhonchi, wheezes Cardiovascular exam: PRESENT: RRR. ABSENT: diastolic murmur, rubs, systolic mur mur GI/Abdominal exam: PRESENT: normal bowel sounds, soft. ABSENT: distended, guarding, mass, organolmegaly, rebound, tenderness Rectal exam: PRESENT: deferred Musculoskeletal exam: PRESENT: ambulatory Neurological exam: PRESENT: alert, awake, oriented to person, oriented to place, oriented to time, oriented to situation Psychiatric exam: PRESENT: appropriate affect Skin exam: PRESENT: dry, warm, other - Groin wounds are healing with granulation tissue noted Results Laboratory Results: 11/18/19 04:27 11/18/19 04:27 11/18/19 11/18/19 04:27 04:27 WBC 10.0 RBC 3.15 L Hgb 9.0 L Hct 26.8 L MCV 85 MCH 28.5 MCHC 33.4 RDW 18.0 H Plt Count 170 Seg Neutrophils % Not Reportable Sodium 138.7 Potassium 4.4 Chloride 111 H Carbon Dioxide 22 Anion Gap 6 BUN 5 L Creatinine 0.66 Est GFR ( Amer) > 60 Glucose 143 H Calcium 7.6 L 11/05/19 08:59 NT-Pro-B Natriuret Pep 2270 H Impressions: Head CT 11/04/19 00:00 IMPRESSION: No acute intracranial hemorrhage or mass effect. Mild chronic microvascular ischemic change with remote lacunar infarct about the anterior aspect of the left lentiform nucleus extending into the myles radiata. Widespread lucent lesions throughout the calvarium and skull base, concerning for either metastatic disease or multiple myeloma. Correlate. TECHNICAL DOCUMENTATION: Quality ID # [id number]: Final reports with documentation of one or more dose reduction techniques (e.g., Automated exposure control, adjustment of the mA and/or kV according to patient size, use of iterative reconstruction technique) copyright 2011 [employer]- All Rights Reserved Chest X-Ray 11/06/19 08:04 IMPRESSION: Unchanged radiographic appearance of the chest. Abdomen/Pelvis CT 11/08/19 00:00 IMPRESSION: Left labial wound packing without evidence of complication or adverse trend. Bilateral flank subcutaneous fat stranding asymmetric to the left is a nonspecific finding. No focal fluid collections/ abscesses. Other chronic and incidental findings as detailed above. Skeletal Survey 11/11/19 08:08 IMPRESSION: Findings as described. There appear to be multiple small lytic lesions in the calvarium particularly. Assessment and Plan - Diagnosis (1) Necrotizing fasciitis of pelvic region and thigh Is this a current diagnosis for this admission?: Yes Plan: Per previous physician: "Polymicrobial necrotizing fasciitis of her left labia and left perineal region. Status post aggressive left labial, and perineal debridement on 11/06/2019. Surgery is following and currently states no indication for further debridement. Wound culture is growing Bacteroides, Peptostreptococcus and group F beta strep all of which are recommended for treatment with Unasyn. Day #7 IV antibiotics. Day #3 IV metronidazole. Day #3 IV ceftriaxone. Received 5 days of IV Unasyn. ID has been consulted. Recommendation is IV ceftriaxone and IV metronidazole while inpatient and switching to p.o. Augmentin 500/125 3 times daily upon d ischarge. A total of 2 weeks of antibiotics recommended from time of good source control. Leukocytosis continues to trend up to 17 today. Currently on ceftriaxone and Flagyl. I have added vancomycin. Continue to monitor CBC." Ceftriaxone/Flagyl/vancomycin continued WBC trending down Blood cultures negative Perineal abscess cultures growing group F beta Streptococcus, Peptostreptococcus, Bacteroides fragilis 11/16/2019 Wounds are healing and doing quite well at this time Patient will need extensive wound care to ensure she heals appropriately after discharge Continue IV antibiotics 11/17/2019 Patient adamant she does not want to go to a nursing facility but this is what is best for her wound care and family has stated they cannot care for patient at home. Currently looking for about acceptance 11/18/2019 Wounds are still healing gradually, patient agrees to placement nursing facility for wound care (2) Acute kidney injury (nontraumatic) Is this a current diagnosis for this admission?: Yes (3) Abscess of left buttock Is this a current diagnosis for this admission?: Yes (4) Acute metabolic encephalopathy Is this a current diagnosis for this admission?: Yes (5) Altered mental status Qualifiers: Altered mental status type: delirium Qualified Code(s): R41.0 - Disorientation, unspecified Is this a current diagnosis for this admission?: Yes (6) Atrial fibrillation with RVR Is this a current diagnosis for this admission?: Yes (7) Cardiomegaly Is this a current diagnosis for this admission?: Yes (8) HHNC (hyperglycemic hyperosmolar nonketotic coma) Is this a current diagnosis for this admission?: Yes (9) Hypercalcemia Is this a current diagnosis for this admission?: Yes (10) Hypernatremia Is this a current diagnosis for this admission?: Yes (11) Hypertension Is this a current diagnosis for this admission?: Yes (12) Myeloma Qualifiers: Multiple myeloma remission status: not in remission Qualified Code(s): C90.00 - Multiple myeloma not having achieved remission Is this a current diagnosis for this admission?: Yes (13) Neuropathy Is this a current diagnosis for this admission?: Yes (15) Uncontrolled type 2 diabetes mellitus Qualifiers: Glycemic state: with hyperglycemia Qualified Code(s): E11.65 - Type 2 diabetes mellitus with hyperglycemia Is this a current diagnosis for this admission?: Yes (16) Hypocalcemia Is this a current diagnosis for this admission?: Yes - Time Time Spent with patient: 15-24 minutes Medications reviewed and adjusted accordingly: Yes - Inpatient Certification Based on my medical assessment, after consideration of the patient's comorbidities, presenting symptoms, or acuity I expect that the services needed warrant INPATIENT care.: Yes I certify that my determination is in accordance with my understanding of Medicare's requirements for reasonable and necessary INPATIENT services [42 CFR 412.3e].: Yes Medical Necessity: Significant Comorbidiites Make Outpatient Treatment Too Risky, Need Close Monitoring Due to Risk of Patient Decompensation, Need for IV Antibiotics, Risk of Complication if Not Cared For in Hospital, Risk of Diagnosis Which Will Require Inpatient Eval/Care/Monitoring
[2019-11-18] MEDS: ACETAMINOPHEN 325 MG TABLET PO PRN (20:30)
[2019-11-19] MEDS: OXYCODONE-ACETAMINOPHEN 5-325 MG TABLET PO PRN ×2 (01:15→09:34)
[2019-11-19] MEDS: VANCOMYCIN HCL 1,000 MG in DEXTROSE 5%-WATER 250 ML IV SCH ×2 (01:16→10:46)
[2019-11-19] MEDS: ACETAMINOPHEN 325 MG TABLET PO PRN (03:29)
[2019-11-19] MEDS: METRONIDAZOLE 500 MG/NS RTU 500 MG/100 ML RTUPB IV SCH (06:28)
[2019-11-19] MEDS: HEPARIN SOD (PORCINE) 5,000 UNIT/ML 1 ML VIAL SUBCUT SCH (06:31)
[2019-11-19] MEDS: INSULIN REG, HUMAN 100 UNIT/ML 3 ML VIAL (PYX) SUBCUT SCH ×2 (08:43→12:16)
[2019-11-19 09:28] VITALS: BP 133/59
[2019-11-19] MEDS: POTASSIUM CHLORIDE 10 MEQ TABLET.ER PO SCH (09:32)
[2019-11-19] MEDS: GABAPENTIN 300 MG CAPSULE PO SCH (09:32)
[2019-11-19] MEDS: MAGNESIUM OXIDE 400 MG TABLET PO SCH (09:32)
[2019-11-19] MEDS: INSULIN GLARGINE,HUM.REC.ANLOG 1,000 UNIT/10 ML VIAL SUBCUT SCH (09:33)
[2019-11-19] MEDS: CEFTRIAXONE 2 GM/D5W RTU 2 GM/50 ML RTUPB IV SCH (09:34)
[2019-11-19 09:53] LABS: VANCOMYCIN,TROUGH 21.7 ug/mL (5.0-20.0)
--- NOTE | 2019-11-19 13:45 | PDOC DISCHARGE SUMMARY ---
Impression - Admit/DC Date/PCP Admission Date/Primary Care Provider: 11/05/19 00:00 INES HUNT MD Discharge Date: 11/19/19 - Discharge Diagnosis (1) Necrotizing fasciitis of pelvic region and thigh Is this a current diagnosis for this admission?: Yes (2) Acute kidney injury (nontraumatic) Is this a current diagnosis for this admission?: Yes (3) Abscess of left buttock Is this a current diagnosis for this admission?: Yes (4) Acute metabolic encephalopathy Is this a current diagnosis for this admission?: Yes (5) Altered mental status Is this a current diagnosis for this admission?: Yes (6) Atrial fibrillation with RVR Is this a current diagnosis for this admission?: Yes (7) Cardiomegaly Is this a current diagnosis for this admission?: Yes (8) HHNC (hyperglycemic hyperosmolar nonketotic coma) Is this a current diagnosis for this admission?: Yes (9) Hypercalcemia Is this a current diagnosis for this admission?: Yes (10) Hypernatremia Is this a current diagnosis for this admission?: Yes (11) Hypertension Is this a current diagnosis for this admission?: Yes (12) Myeloma Is this a current diagnosis for this admission?: Yes (13) Neuropathy Is this a current diagnosis for this admission?: Yes (15) Uncontrolled type 2 diabetes mellitus Is this a current diagnosis for this admission?: Yes (16) Hypocalcemia Is this a current diagnosis for this admission?: Yes - Additional Information Resuscitation Status: Full Code Discharge Diet: Diabetic Discharge Activity: Activity As Tolerated, Balance Activity w/Rest Referrals: INES HUNT MD [Primary Care Provider] - Follow up as needed Prescriptions: Metronidazole/Sodium Chloride [Metro IV 500 mg/100 ml] 500 mg IV Q12 #4 piggyback Oxycodone HCl/Acetaminophen [Percocet 5-325 mg Tablet] 1 tab PO Q6HP PRN #14 tablet PRN Reason: Ceftriaxone 2 gm/D5w RTU [Rocephin RTU 2 gm/D5w 50 ml Premix Bag] 2 gm IV DAILY #2 rtupb Home Medications: Acetaminophen [Tylenol 325 mg Tablet] 650 mg PO Q4HP PRN tablet 11/19/19 Acetaminophen [Tylenol 650 mg Supp] 650 mg ME Q4HP PRN supp.rect 11/19/19 Ceftriaxone 2 gm/D5w RTU [Rocephin RTU 2 gm/D5w 50 ml Premix Bag] 2 gm IV DAILY #2 rtupb 11/19/19 Gabapentin [Neurontin 300 mg Capsule] 600 mg PO Q12 capsule 11/19/19 Insulin Glargine,Hum.rec.anlog [Lantus Insulin 100 Unit/1 ml 10 ml] 25 unit SUBCUT Q12 unit 11/19/19 Insulin Regular, Human [Humulin R (Reg) Insulin 100 unit/mL] 0 - 30 unit SUBCUT ACHS unit 11/19/19 Levalbuterol HCl [Xopenex Neb 0.63 mg/3 ml Ampul] 0.63 mg NEB RTQ2HP PRN vial.neb 11/19/19 Magnesium Oxide [Mag-Ox 400 mg Tablet] 400 mg PO BID tablet 11/19/19 Metronidazole/Sodium Chloride [Metro IV 500 mg/100 ml] 500 mg IV Q12 #4 piggyback 11/19/19 Nicotine [Nicoderm 21 mg/24 Hr Transderm Patch] 1 each TD DAILYP PRN patch.td24 11/19/19 Oxycodone HCl/Acetaminophen [Percocet 5-325 mg Tablet] 1 tab PO Q6HP PRN #14 ta blet 11/19/19 Potassium Chloride [Klor-Con 10 Meq Tablet ER] 40 meq PO DAILY tablet.er 11/19/19 History of Present Illiness History of Present Illness: For admitting physician: "MELISSA SAM is a 64 year old female who presented to the emergency room with her family complaining of a 5-day history of altered mental status. Patient's daughter admitted the patient's mental status has gradually worsened over the last 5 days to the point where she is now continuously moderately confused. The patient is pleasant and affable, but confused and unable to provide any input into her medical history. Her altered mental status has been associated with nausea, vomiting and diarrhea over the same 5-day interval. Her altered mental status has been accompanied by generalized weakness and lethargy. Her daughter denies any additional associated or accompanying signs and symptoms. Her daughter denies prior similar episodes. Her daughter has not identified any aggravating or ameliorating factors for her mother's altered mental status. In the emergency room she was found to have a leukocytosis, hyperglycemia, severe hypercalcemia and an acute kidney injury. She was subsequently admitted to the hospital for further evaluation treatment." Per critical care physician: "This patient is a 64 yo woman with afib and DM-II who has been septic since a dmission. Initially treated with fluids and then antibiotics. She was, and is, hypercalcemic to 14.1 further confusing the picture. She has a 1cmm X 1cmm perirectal decubitus with a significant inturation and purpulish discoloration around this site about 10cm in diameter. This was unroofed and cultured draining several cc of anearobic smelling pus. Dr. Mario is consulted surgically. She is febrile to 103.4, tachycardic to 125 on a cardizem drip. BG is 325 and on lantus. Her obtundation is such that she is protecting her airway but is both an aspiration risk and an intubation risk. The decubitus likely needs surgical intervention at least leyla debride. Less likely this could be a perirectal abcess for which the OR may be indicated. She has multiple abnormalities, least of all is her hypercalcemia of 14.1" Per general surgery on admission: "MELISSA SAM is a 64 year old female currently in the hospital for work-up of mental status changes along with diarrhea and nausea and vomiting. Noted with a left buttocks abscess with the drainage of foul-smelling material. She has been febrile in the hospital. Patient cannot give a history due to her mental status and it is uncertain how long she has had this process. She does have diabetes." Hospital Course Hospital Course: Patient admitted for acute metabolic encephalopathy, sepsis due to pelvic abscesses which required I&D by general surgery, severe hypercalcemia due to new diagnosed multiple myeloma.. Patient was started on appropriate broad-spectrum IV antibiotics and has remained on these throughout the admission. On day of discharge patient is on ceftriaxone/vancomycin/metronidazole. This is been narrowed to ceftriaxone/metronidazole as cultures did not grow specifically methicillin resistant bacteria. Patient had been given 5 days of Unasyn prior to starting ceftriaxone/Flagyl/vancomycin. ID has been consulted and they recommended IV ceftriaxone and IV Flagyl while in hospital/facility. This will be continued for total of 14 days from source control, presumably after I&D done by general surgery. On 11/07/2019, General surgery performed excisional debridement of left buttocks, repair of vulvar region and groin, approximately 20 cm x 10 cm surface area of necrotic tissue excision. Concern for necrotizing fasciitis. Wound was cleaned extensively and packed. Oncology was consulted on 11/11/2019 for help with severe hypercalcemia. Patient had myeloma work-up including SPEP which showed an M spike of 0.5 and a light chain of 300. Patient will need a bone marrow biopsy done. Skeletal survey has been completed here and it showed multiple lytic lesions. Patient needs close follow-up with oncology outpatient after discharge. Starting chemotherapy was deferred to a later date due to ongoing active infection. This can be explored once infection is completely cleared and she has completed her antibiotics. During admission while patient was septic, she experienced a short period of A. fib with RVR which has not recurred throughout the rest of the admission. Patient has no history of atrial fibrillation per history given by her. There is no indication for anticoagulation at this time unless her A. fib recurs in the absence of a clear precipitant such as sepsis. Physical Exam Vital Signs: Temp Pulse Resp BP Pulse Ox 97.4 F 80 16 133/59 H 98 11/19/19 08:18 11/19/19 08:18 11/19/19 08:18 11/19/19 08:18 11/19/19 08:18 Intake & Output 11/18/19 11/19/19 11/20/19 06:59 06:59 06:59 Intake Total 1224 2972 400 Output Total 2000 Balance 1224 972 400 Weight 110 kg 109 kg General appearance: PRESENT: no acute distress, well-developed, well-nourished Head exam: PRESENT: atraumatic, normocephalic Eye exam: PRESENT: conjunctiva pink Mouth exam: PRESENT: moist Respiratory exam: PRESENT: clear to auscultation paula. ABSENT: rales, rhonchi, wheezes Cardiovascular exam: PRESENT: RRR. ABSENT: diastolic murmur, rubs, systolic murmur GI/Abdominal exam: PRESENT: normal bowel sounds, soft. ABSENT: distended, guarding, mass, organolmegaly, rebound, tenderness Rectal exam: PRESENT: deferred Gentrourinary exam: PRESENT: other - Pelvic/labial wounds healing with granulation tissue. Nonpurulent mild discharge noted, tender Neurological exam: PRESENT: alert, awake, oriented to person, oriented to place, oriented to time, oriented to situation Psychiatric exam: PRESENT: appropriate affect Skin exam: PRESENT: dry, intact, warm Results Laboratory Results: WBC 10.0 10^3/uL (4.0-10.5) 11/18/19 04:27 RBC 3.15 10^6/uL (3.72-5.28) L 11/18/19 04:27 Hgb 9.0 g/dL (12.0-15.5) L 11/18/19 04:27 Hct 26.8 % (36.0-47.0) L 11/18/19 04:27 MCV 85 fl (80-97) 11/18/19 04:27 MCH 28.5 pg (27.0-33.4) 11/18/19 04:27 MCHC 33.4 g/dL (32.0-36.0) 11/18/19 04:27 RDW 18.0 % (11.5-14.0) H 11/18/19 04:27 Plt Count 170 10^3/uL (150-450) 11/18/19 04:27 Lymph % (Auto) Not Reportable 11/18/19 04:27 [place] % (Auto) Not Reportable 11/18/19 04:27 Eos % (Auto) Not Reportable 11/18/19 04:27 Baso % (Auto) Not Reportable 11/18/19 04:27 Absolute Neuts (auto) Not Reportable 11/18/19 04:27 Absolute Lymphs (auto) Not Reportable 11/18/19 04:27 Absolute Monos (auto) Not Reportable 11/18/19 04:27 Absolute Eos (auto) Not Reportable 11/18/19 04:27 Absolute Basos (auto) Not Reportable 11/18/19 04:27 Total Counted 100 11/18/19 04:27 Seg Neutrophils % Not Reportable 11/18/19 04:27 Seg Neuts % (Manual) 85 % (42-78) H 11/18/19 04:27 Band Neutrophils % 3 % (3-5) 11/18/19 04:27 Lymphocytes % (Manual) 7 % (13-45) L 11/18/19 04:27 Monocytes % (Manual) 1 % (3-13) L 11/18/19 04:27 Eosinophils % (Manual) 2 % (0-6) 11/18/19 04:27 Basophils % (Manual) 2 % (0-2) 11/18/19 04:27 Abs Neuts (Manual) 8.8 10^3/uL (1.7-8.2) H 11/18/19 04:27 Abs Lymphs (Manual) 0.7 10^3/uL (0.5-4.7) 11/18/19 04:27 Abs Monocytes (Manual) 0.1 10^3/uL (0.1-1.4) 11/18/19 04:27 Absolute Eos (Manual) 0.2 10^3/uL (0.0-0.6) 11/18/19 04:27 Abs Basophils (Manual) 0.2 10^3/uL (0.0-0.2) 11/18/19 04:27 Nucleated RBCs 1 /100 WBC (0) 11/18/19 04:27 Toxic Granulation SLIGHT 11/17/19 04:58 Large Platelets PRESENT 11/12/19 07:40 Platelet Comment ADEQUATE 11/18/19 04:27 Polychromasia SLIGHT 11/18/19 04:27 Hypochromasia SLIGHT 11/18/19 04:27 Poikilocytosis SLIGHT 11/17/19 04:58 Anisocytosis 1+ 11/18/19 04:27 Target Cells SLIGHT 11/09/19 04:42 Tear Drop Cells SLIGHT 11/10/19 05:07 Ovalocytes SLIGHT 11/18/19 04:27 Carbonic Acid 1.21 mmol/L (1.05-1.35) 11/05/19 09:25 HCO3/H2CO3 Ratio 21:1 11/05/19 09:25 ABG pH 7.42 (7.35-7.45) 11/05/19 09:25 ABG pCO2 40.3 mmHg (35-45) 11/05/19 09:25 ABG pO2 173.2 mmHg (80-100) H 11/05/19 09:25 ABG HCO3 25.7 mmol/L (20-24) H 11/05/19 09:25 ABG Total CO2 27.0 mmol/L (21-25) H 11/05/19 09:25 ABG O2 Saturation 99.2 % (94-98) H 11/05/19 09:25 ABG Base Excess 1.2 mmol/L 11/05/19 09:25 FiO2 15L 11/05/19 09:25 Sodium 138.7 mmol/L (137-145) 11/18/19 04:27 Potassium 4.4 mmol/L (3.6-5.0) 11/18/19 04:27 Chloride 111 mmol/L (98-107) H 11/18/19 04:27 Carbon Dioxide 22 mmol/L (22-30) 11/18/19 04:27 Anion Gap 6 (5-19) 11/18/19 04:27 BUN 5 mg/dL (7-20) L 11/18/19 04:27 Creatinine 0.64 mg/dL (0.52-1.25) 11/19/19 09:01 Est GFR ( Amer) > 60 (>60) 11/19/19 09:01 Est GFR (Non-Af Amer) Cancelled 11/04/19 20:07 Est GFR (MDRD) Non-Af > 60 (>60) 11/19/19 09:01 Glucose 143 mg/dL (75-110) H 11/18/19 04:27 POC Glucose 177 mg/dL (70-110) H 11/19/19 12:05 Hemoglobin A1c % 9.9 % (4.7-6.0) H 11/04/19 20:07 Lactic Acid 1.1 mmol/L (0.7-2.1) 11/05/19 14:21 Calcium 7.6 mg/dL (8.4-10.2) L 11/18/19 04:27 Ionized Calcium Myron 1.05 mmol/L (1.14-1.30) L 11/16/19 19:56 Phosphorus 2.7 mg/dL (2.5-4.5) 11/10/19 05:07 Magnesium 1.9 mg/dL (1.6-2.3) 11/15/19 04:09 Total Bilirubin 0.2 mg/dL (0.2-1.3) 11/15/19 04:09 Direct Bilirubin 0.0 mg/dL (0.0-0.4) 11/15/19 04:09 Neonat Total Bilirubin Not Reportable 11/15/19 04:09 Neonat Direct Bilirubin Not Reportable 11/15/19 04:09 Neonat Indirect Bili Not Reportable 11/15/19 04:09 AST 14 U/L (14-36) 11/15/19 04:09 ALT 8 U/L (<35) 11/15/19 04:09 Alkaline Phosphatase 81 U/L (38-126) 11/15/19 04:09 Ammonia 10.4 umol/L (9-33) 11/05/19 10:00 NT-Pro-B Natriuret Pep 2270 pg/mL (<125) H 11/05/19 08:59 Total Protein 4.7 g/dL (6.3-8.2) L 11/15/19 04:09 Albumin 2.3 g/dL (3.5-5.0) L 11/15/19 04:09 Globulin 2.5 g/dL (2.2-3.9) 11/05/19 08:59 Alb/Glob Ratio Alt Meth 1.1 (0.7-1.7) 11/05/19 08:59 Cuwys-1-Cgixxnbpq 0.4 g/dL (0.0-0.4) 11/05/19 08:59 Pzuqt-8-Abpxcutuk 0.8 g/dL (0.4-1.0) 11/05/19 08:59 Beta Globulins 1.2 g/dL (0.7-1.3) 11/05/19 08:59 Gamma Globulins 0.2 g/dL (0.4-1.8) L 11/05/19 08:59 M-Louie 0.5 g/dL (Not Observ) H 11/05/19 08:59 EGFR Cancelled 11/04/19 20:07 Vitamin A 13.2 ug/dL (22.0-69.5) L 11/05/19 08:59 Vitamin D 25-Hydroxy < 12.8 ng/mL (14.7-68.3) L 11/05/19 08:59 Vit D 1,25-Dihydroxy 7.2 pg/mL (19.9-79.3) L 11/05/19 08:59 TSH 0.67 uIU/mL (0.47-4.68) 11/04/19 21:27 Free T4 1.07 ng/dL (0.78-2.19) 11/05/19 08:59 Free T3 pg/mL 1.99 pg/mL (2.77-5.27) L 11/04/19 21:27 PTH Intact 9.9 pg/mL (10.0-65.0) L 11/05/19 08:59 PTH Related Peptide <2.0 pmol/L (.) 11/05/19 08:59 Immunoglobulin A 485 mg/dL (87-352) H 11/05/19 08:59 Immunoglobulin G 239 mg/dL (586-1602) L 11/05/19 08:59 Immunoglobulin M 21 mg/dL (26-217) L 11/05/19 08:59 Serum Immunofixation Comment (.) 11/05/19 08:59 Immunofixation Note Comment (.) 11/05/19 08:59 Urine Color YELLOW 11/05/19 02:05 Urine Appearance SLIGHTLY-CLOUDY 11/05/19 02:05 Urine pH 5.0 (5.0-9.0) 11/05/19 02:05 Ur Specific Carpio 1.014 11/05/19 02:05 Urine Protein 30 mg/dL (NEGATIVE) H 11/05/19 02:05 Urine Glucose (UA) >=500 mg/dL (NEGATIVE) H 11/05/19 02:05 Urine Ketones NEGATIVE mg/dL (NEGATIVE) 11/05/19 02:05 Urine Blood SMALL (NEGATIVE) H 11/05/19 02:05 Urine Nitrite (Reflex) NEGATIVE (NEGATIVE) 11/05/19 02:05 Urine Bilirubin NEGATIVE (NEGATIVE) 11/05/19 02:05 Urine Urobilinogen NEGATIVE mg/dL (<2.0) 11/05/19 02:05 Leukocyte Esterase Rfl NEGATIVE (NEGATIVE) 11/05/19 02:05 Urine RBC (Auto) 0 /HPF 11/05/19 02:05 U Hyaline Cast (Auto) 3 /LPF 11/05/19 02:05 Urine WBC (Reflex) 1 /HPF 11/05/19 02:05 Squamous Epi Cells Auto <1 /HPF 11/05/19 02:05 Urine Mucus (Auto) RARE /LPF 11/05/19 02:05 Urine Sodium 111 mmol/L (30-90) H 11/10/19 17:52 Urine Potassium 33.9 mmol/L (22-164) 11/10/19 17:52 Urine Total Protein 39.8 mg/dL (Not Estab.) 11/05/19 08:59 Urine Albumin 60.6 % (.) 11/05/19 08:59 U Jpwcd-1-Naucdxuc 0.1 % (.) 11/05/19 08:59 U Iliun-2-Becdrhda 7.2 % (.) 11/05/19 08:59 U Beta Globulin 27.1 % (.) 11/05/19 08:59 U Gamma Globulin 4.9 % (.) 11/05/19 08:59 U Random M-Louie (%) Not Observed % (Not Observ) 11/05/19 08:59 Urine PEP Note Comment (.) 11/05/19 08:59 Urine Ascorbic Acid NEGATIVE (NEGATIVE) 11/05/19 02:05 Time Trough Drawn 0901 11/19/19 09:01 Vancomycin Trough 21.7 ug/mL (5.0-20.0) H 11/19/19 09:01 Serum Alcohol < 10 mg/dL (NONE DETECTED) 11/04/19 21:27 Albumin (SU) 2.5 g/dL (2.9-4.4) L 11/05/19 08:59 Free Hammett LC, Quant 5.7 mg/L (3.3-19.4) 11/05/19 08:59 Free Lambda LC, Quant 324.3 mg/L (5.7-26.3) H 11/05/19 08:59 Free Hammett/Lambda Ratio 0.02 (0.26-1.65) L 11/05/19 08:59 SARS-CoV-2 (PCR) NEGATIVE (NEGATIVE) 11/06/19 16:20 11/05/19 08:59 NT-Pro-B Natriuret Pep 2270 H Impressions: Head CT 11/04/19 00:00 IMPRESSION: No acute intracranial hemorrhage or mass effect. Mild chronic microvascular ischemic change with remote lacunar infarct about the anterior aspect of the left lentiform nucleus extending into the myles radiata. Widespread lucent lesions throughout the calvarium and skull base, concerning for either metastatic disease or multiple myeloma. Correlate. TECHNICAL DOCUMENTATION: Quality ID # 436: Final reports with documentation of one or more dose reduction techniques (e.g., Automated exposure control, adjustment of the mA and/or kV according to patient size, use of iterative reconstruction technique) copyright 2011 [employer]- All Rights Reserved Chest X-Ray 11/04/19 20:01 IMPRESSION: No acute disease. copyright 2010 [employer]- All Rights Reserved Chest X-Ray 11/05/19 00:00 IMPRESSION: STABLE APPEARANCE. MILD CARDIOMEGALY AND MILD VASCULAR PROMINENCE. Chest X-Ray 11/06/19 08:04 IMPRESSION: Unchanged radiographic appearance of the chest. Abdomen/Pelvis CT 11/08/19 00:00 IMPRESSION: Left labial wound packing without evidence of complication or adverse trend. Bilateral flank subcutaneous fat stranding asymmetric to the left is a nonspecific finding. No focal fluid collections/ abscesses. Other chronic and incidental findings as detailed above. Skeletal Survey 11/11/19 08:08 IMPRESSION: Findings as described. There appear to be multiple small lytic lesions in the calvarium particularly. Plan Plan of Treatment: Follow-up with PCP Follow-up with oncologist and schedule bone marrow biopsy, discuss timing of chemotherapy with them as well IV antibiotics until 11/21/2019 Stop smoking Recheck BMP in 1 week Time Spent: Greater than 30 Minutes Stroke Is this a Stroke Patient?: No Acute Heart Failure - Is this a Heart Failure Patient?: No
[2019-11-19] MEDS ORDERED: VANCOMYCIN HCL 1,250 MG in DEXTROSE 5%-WATER 250 ML IV SCH (14:00)
[2019-11-19] MEDS ORDERED: LACTOBACILLUS ACIDOPHILUS 250 MG TAB PO SCH (18:00)
== END 2019-11-19 14:01 | disposition short-term general hospital (02) | DRG 853 ==
LOC: ER 17:05 → EH 11-05 → 3S 11-05 03:08 → ICU 11-06 12:30 → 3W 11-09 16:59
PROVIDERS: ADMIT Emergency Medicine; ATTEND Internal Medicine
PROC: 0JB90ZZ Excision of Buttock Subcutaneous Tissue and Fascia, Open Approach (ICD-10-PCS; principal; 2019-11-07)
PROC: 0JBC0ZZ Excision of Pelvic Region Subcutaneous Tissue and Fascia, Open Approach (ICD-10-PCS; 2019-11-07)
PROC: 0JBB0ZZ Excision of Perineum Subcutaneous Tissue and Fascia, Open Approach (ICD-10-PCS; 2019-11-07)
DX: A41.9 Sepsis, unspecified organism (principal); M72.6 Necrotizing fasciitis; E11.01 Type 2 diabetes mellitus with hyperosmolarity with coma; G93.41 Metabolic encephalopathy; N17.9 Acute kidney failure, unspecified; E87.0 Hyperosmolality and hypernatremia; C90.00 Multiple myeloma not having achieved remission; E11.65 Type 2 diabetes mellitus with hyperglycemia; E83.52 Hypercalcemia; I10 Essential (primary) hypertension; J44.9 Chronic obstructive pulmonary disease, unspecified; I51.7 Cardiomegaly; E11.40 Type 2 diabetes mellitus with diabetic neuropathy, unspecified; E66.01 Morbid (severe) obesity due to excess calories; R65.20 Severe sepsis without septic shock; L89.329 Pressure ulcer of left buttock, unspecified stage; F32.9 Major depressive disorder, single episode, unspecified; R41.0 Disorientation, unspecified; B96.6 Bacteroides fragilis [B. fragilis] as the cause of diseases classified elsewhere; I48.0 Paroxysmal atrial fibrillation; E86.0 Dehydration; B95.4 Other streptococcus as the cause of diseases classified elsewhere; F17.210 Nicotine dependence, cigarettes, uncomplicated; Z68.36 Body mass index [BMI] 36.0-36.9, adult; Z78.1 Physical restraint status; Z03.818 Encounter for observation for suspected exposure to other biological agents ruled out; Z79.4 Long term (current) use of insulin; Z79.899 Other long term (current) drug therapy
CPT/HCPCS: 00300; 36415; 51701; 70450; 71045; 74176; 77075; 80048; 80053; 80202; 80307; 81001; 82140; 82306; 82330; 82397; 82565; 82652; 82803; 82962; 83036; 83605; 83735; 83880; 83883; 83970; 84100; 84133; 84166; 84300; 84439; 84443; 84481; 84590; 85025; 85027; 86320; 87040; 87070; 87075; 87077; 87205; 87635; 93005; 93010; 93306; 94667; 94799; 96360; 96361; 99140; 99221; 99291; J0610; C9803; J0295; J0630; J0696; J1100; J1170; J1644; J1815; J1885; J1940; J2250; J2270; J2405; J2543; J2704; J2920; J3010; J3370; J3475; J3480; J3489; J3490; J7030; J7050; J7060; J7120

== ENCOUNTER 2020-02-03 09:01 | Day surgery (SDC) | payer MEDICARE ==
[2020-02-03 09:51] LABS: INTERNATIONAL RATION (INR) 0.98; PROTHROMBIN TIME 13.2 SEC (11.4-15.4)
[2020-02-03 09:52] LABS: PARTIAL THROMBOPLASTIN TIME 30.2 SEC (23.5-35.8)
[2020-02-03 10:02] LABS: HEMATOCRIT 34.5 % (36.0-47.0); HEMOGLOBIN 11.3 g/dL (12.0-15.5); MEAN CORPUSCULAR HEMOGLOBIN 26.7 pg (27.0-33.4); MEAN CORPUSCULAR HGB CONC 32.7 g/dL (32.0-36.0); MEAN CORPUSCULAR VOLUME 82 fl (80-97); PLATELET COUNT 121 10^3/uL (150-450); RED BLOOD COUNT 4.24 10^6/uL (3.72-5.28); RED CELL DISTRIBUTION WIDTH 18.9 % (11.5-14.0)
[2020-02-03 10:08] LABS: BLOOD UREA NITROGEN 16 mg/dL (7-20)
[2020-02-03] MEDS ORDERED: FENTANYL CITRATE INJ/PF 100 MCG/2 ML AMPUL ONE ×2 (10:43→11:18)
[2020-02-03] MEDS ORDERED: MIDAZOLAM 2 MG/2 ML INJ ONE ×2 (10:43→11:18)
--- NOTE | 2020-02-03 12:12 | RADIOLOGY REPORT (SQ) ---
EXAM DESCRIPTION: CT BIOPSY BONE MARROW, NEEDLE IMAGES COMPLETED DATE/TIME: 02/03/2020 11:40 am REASON FOR STUDY: EARLY SATIETY / ABNORMAL WEIGHT LOSS D47.2 MONOCLONAL GAMMOPATHY Z79.01 LONG MANJEET M (CURRENT) USE OF ANTICOAGULANTS COMPARISON: None. TECHNIQUE: CT guided biopsy of the right iliac crest bone marrow performed with conscious sedation. CT Fluoroscopy Time: 7.[address] scanners at this facility use dose modulation, iterative reconstruction, and/or weight based d osing when appropriate to reduce radiation dose to as low as reasonably achievable (ALARA). [facility]: Dose Right [facility]: CareDose [facility]: Dose Right [facility]: Teradose 4D [facility]: Conferensum RADIATION DOSE: CT Rad equipment meets quality standard of care and radiation dose reduction techniq ues were employed. CTDIvol: 8.6 - 20.2 mGy. DLP: 520 mGy-cm.mGy. FINDINGS: After obtaining informed consent and explaining the risks and benefits of conscious sedati on,the patient agreed to the procedure. Prior to the procedure, a time out was performed to verify th e patient's identity and planned procedure. IV conscious sedation was administered and physician direction by the registered nurse using 2.0 mill igrams of Versed and 100 micrograms of fentanyl. Physiologic monitoring was provided before, during, and after sedation. The total sedation time was 30 minutes. Documentation face to face time, the performing proceduralist, spent monitoring the patient: [address] scanning was performed to localize the percutaneous site for the biopsy approach. After sterile skin prep and local lidocaine for skin and deep tissue anesthesia, a coaxial biopsy nee dle was used to obtain a bone marrow aspirate, and a bone marrow core of tissue. The biopsy tissue wa s received by Dr. Mast's nurse to be sent out for evaluation. There were no immediate complication s. Pathology is pending at the time of dictation. IMPRESSION: CT GUIDED ASPIRATE AND CORE BIOPSY OF THE RIGHT POSTERIOR ILIAC CREST BONE MARROW PERFOR MED WITHOUT IMMEDIATE COMPLICATION. PATHOLOGY PENDING. IV CONSCIOUS SEDATION WITHOUT COMPLICATION. COMMENT: Quality ID 145: Final reports for procedures using fluoroscopy that document radiation exp osure indices, or exposure time and number of fluorographic images (if radiation exposure indices are not available) Patient medication list reviewed: Yes- Quality ID# [id number]:Eligible professional attests to documenting i n the medical record they obtained, updated, or reviewed the patient's current medications.. TECHNICAL DOCUMENTATION: JOB ID: [id number] Quality ID# 436: Final reports with documentation of one or more dose reduction techniques (e.g., Aut omated exposure control, adjustment of the mA and/or kV according to patient size, use of iterative r econstruction technique) 2010 [employer]- All Rights Reserved Reading location - IP/workstation name: [email or web address]
[2020-02-03 13:50] VITALS: BP 142/62
== END 2020-02-03 13:35 | disposition home or self-care (01) ==
LOC: RAD 09:01
PROVIDERS: ATTEND Internal Medicine
DX: D47.2 Monoclonal gammopathy (principal); E11.9 Type 2 diabetes mellitus without complications; I10 Essential (primary) hypertension; Z79.01 Long term (current) use of anticoagulants
CPT/HCPCS: 36415; 82962; 84520; 82565; 85027; 85610; 85730; 38221; J2250; J3010

== ENCOUNTER → 2020-02-05 | Outpatient (CLI) | payer MEDICARE ==
--- NOTE | 2020-02-05 16:21 | RADIOLOGY REPORT (SQ) ---
EXAM DESCRIPTION: BONE SURVEY COMPLETE IMAGES COMPLETED DATE/TIME: 02/05/2020 3:37 pm REASON FOR STUDY: D47.2 MONOCLONAL GAMMOPATHY D47.2 MONOCLONAL GAMMOPATHY COMPARISON: 11/11/2019 TECHNIQUE: Images of the axial and proximal appendicular skeleton are obtained, along with lateral s kull and frontal chest films. LIMITATIONS: None. FINDINGS: AP CHEST: No bony findings. Lungs are clear. LATERAL SKULL: Multiple lytic lesions throughout the calvarium. AP BOTH HUMERI: Osteoporosis. Cannot exclude lytic lesions in the proximal humeri. TWO-VIEW LUMBAR SPINE: No worrisome bone lesions. TWO-VIEW THORACIC SPINE: No worrisome bone lesions. AP PELVIS: No worrisome bone lesions. AP BOTH FEMURS: No worrisome bone lesions. OTHER: No other significant finding. IMPRESSION: Findings as described. There are multiple lytic lesions in the calvarium. Cannot exclu de lytic lesions in the proximal humeri. TECHNICAL DOCUMENTATION: JOB ID: [id number] 2010 [employer]- All Rights Reserved Reading location - IP/workstation name: [email or web address]
== END ==
LOC: RAD 14:54
PROVIDERS: ATTEND Internal Medicine
DX: D47.2 Monoclonal gammopathy (principal)
CPT/HCPCS: 77075

== ENCOUNTER 2020-02-28 13:11 | Emergency (ER) | payer MEDICARE ==
[2020-02-28] MEDS ORDERED: OXYCODONE-ACETAMINOPHEN 5-325 MG TABLET PO ONE (14:00)
--- NOTE | 2020-02-28 14:02 | ER Document Report ---
ED Medical Screen (RME) - General Chief Complaint: Fall Injury Stated Complaint: FALL/LEG PAIN Time Seen by Provider: 02/28/20 13:56 Primary Care Provider: RAMYA MCKOY MD [Primary Care Provider] - Follow up as needed Notes: HPI: 65-year-old female presenting for multiple injuries from a fall. States she slipped and fell on a wet floor at home a week ago landing on the right side. Patient believes she injured the ankle at that time also injured the right ribs and chest wall. States it hurt to cough or breathe for 3 days. Patient states she has not really been able to weight-bear on the right foot and ankle has had significant swelling and bruising. Patient tried to step down 2 days ago and had increasing pain again. Now states she cannot weight-bear on the right ankle and leg because she feels like she snapped another bone PHYSICAL EXAMINATION: There is moderate soft tissue swelling and edema to the right foot and ankle with bruising along the right lateral malleolus and foot with tenderness on palpation. There is proximal fibular pain in the right lower extremity on palpation. Mild tenderness to the right chest wall on palpation without crepitus or flail limited exam by triage positioning and no gowning in triage I have greeted and performed a rapid initial assessment of this patient. A comprehensive ED assessment and evaluation of the patient, analysis of test results and completion of medical decision making process will be conducted by an additional ED providers. TRAVEL OUTSIDE OF THE [place] IN LAST 30 DAYS: No - Related Data Allergies/Adverse Reactions: No Known Allergies Allergy (Verified 02/28/20 13:52) Past Medical History - Past Medical History Cardiac Medical History: Reports: Hx Hypertension - meds not restarted after sepsis incident Denies: Hx Coronary Artery Disease, Hx Heart Attack, Hx Hypercholesterolemia Pulmonary Medical History: Reports: Hx COPD Denies: Hx Asthma, Hx Bronchitis, Hx Pneumonia Neurological Medical History: Denies: Hx Cerebrovascular Accident, Hx Seizures Endocrine Medical History: Reports: Hx Diabetes Mellitus Type 2. Denies: Hx Diabetes Mellitus Type 1, Hx Hyperthyroidism, Hx Hypothyroidism GI Medical History: Denies: Hx Cirrhosis, Hx Hepatitis Musculoskeltal Medical History: Reports Hx Arthritis, Denies Hx Fibromyalgia Skin Medical History: Denies Hx Eczema, Denies Hx Psoriasis Psychiatric Medical History: Reports: Hx Depression Infectious Medical History: Denies: Hx Hepatitis Past Surgical History: Reports: Hx Cholecystectomy, Hx Hysterectomy - Immunizations Hx Diphtheria, Pertussis, Tetanus Vaccination: No Physical Exam - Vital signs Vitals: Temp Pulse Resp BP Pulse Ox 98.3 F 71 20 143/51 H 98 02/28/20 13:32 02/28/20 13:32 02/28/20 13:32 02/28/20 13:32 02/28/20 13:32 Course - Vital Signs Vital signs: Temp Pulse Resp BP Pulse Ox 98.3 F 71 20 143/51 H 98 02/28/20 13:32 02/28/20 13:32 02/28/20 13:32 02/28/20 13:32 02/28/20 13:32 Doctor's Discharge - Discharge Referrals: RAMYA MCKOY MD [Primary Care Provider] - Follow up as needed
--- NOTE | 2020-02-28 15:13 | RADIOLOGY REPORT (SQ) ---
EXAM DESCRIPTION: FOOT RIGHT COMPLETE IMAGES COMPLETED DATE/TIME: 02/28/2020 2:37 pm REASON FOR STUDY: fall COMPARISON: None. EXAM PARAMETERS: NUMBER OF VIEWS: Three views. TECHNIQUE: AP, lateral and oblique radiographic images acquired of the right foot. LIMITATIONS: None. FINDINGS: MINERALIZATION: Osteopenia. BONES: No acute fracture or dislocation. No worrisome bone lesions. JOINTS: No effusion. SOFT TISSUES: Dorsal soft tissue swelling. No radiopaque foreign body. OTHER: No other significant finding. IMPRESSION: No fracture identified. TECHNICAL DOCUMENTATION: JOB ID: [id number] [place]-72 2010 [employer]- All Rights Reserved Reading location - IP/workstation name: Managed by Q
--- NOTE | 2020-02-28 15:15 | RADIOLOGY REPORT (SQ) ---
EXAM DESCRIPTION: TIBIA FIBULA RIGHT IMAGES COMPLETED DATE/TIME: 02/28/2020 2:37 pm REASON FOR STUDY: fall COMPARISON: None. NUMBER OF VIEWS: Two views. TECHNIQUE: Two radiographic images acquired of the right tibia and fibula to include the knee and an kle in at least one projection. LIMITATIONS: None. FINDINGS: MINERALIZATION: Osteopenia. BONES: Nondisplaced fracture of the upper fibular diaphysis. No other fracture identified. SOFT TISSUES: No obvious swelling or foreign body. OTHER: No other significant finding. IMPRESSION: Nondisplaced fracture of the upper fibular diaphysis. TECHNICAL DOCUMENTATION: JOB ID: [id number] [place]-72 2010 [employer]- All Rights Reserved Reading location - IP/workstation name: [email or web address]
--- NOTE | 2020-02-28 15:21 | RADIOLOGY REPORT (SQ) ---
EXAM DESCRIPTION: RIBS RIGHT W/PA CHEST IMAGES COMPLETED DATE/TIME: 02/28/2020 2:37 pm REASON FOR STUDY: fall COMPARISON: None. TECHNIQUE: Frontal view of the chest and additional views of the right ribs acquired. NUMBER OF VIEWS: Five view. LIMITATIONS: None. FINDINGS: FRONTAL CXR: Questionable tiny right apical pneumothorax. No pleural effusion. No atelec tasis or infiltrates. RIBS: Right lateral 7th rib fracture, questionable small lytic area adjacent to the site of fracture. OTHER: No other significant finding. IMPRESSION: Questionable tiny right apical pneumothorax. Right lateral 7th rib fracture, questionabl e small lytic area adjacent to the site of fracture. COMMENT: Consider CT to further characterize. The findings were sent to the Radiology Results [facility] at 15:15 on 02/28/2020 to be communicated to a licensed caregiver. SITE OF TRAUMA/COMPLAINT MARKED/STAMP COMPLETED: NO. TECHNICAL DOCUMENTATION: JOB ID: [id number] [place]-72 2010 [employer]- All Rights Reserved Reading location - IP/workstation name: [email or web address]
--- NOTE | 2020-02-28 16:10 | ER Document Report ---
ED General - General Chief Complaint: Fall Injury Stated Complaint: FALL/LEG PAIN Time Seen by Provider: 02/28/20 13:56 Primary Care Provider: RAMYA MCKOY MD [ACTIVE STAFF] - Follow up in 3-5 days JILL JIN DO [ACTIVE STAFF] - Follow up in 3-5 days TRAVEL OUTSIDE OF THE [place] IN LAST 30 DAYS: No - HPI Notes: 65-year-old female to the emergency department with complaints of right-sided rib pain, right lower leg pain that began about 1 week ago. She states she was walking in her home when she slipped on a wet spot in her kitchen. She states she went down onto the right side. She states that initially she had a lot of pain when she was taking a big deep breath and coughing but then not let up a little bit. However on Saturday of this weekend she went to go stand on her right leg when she felt a pop and had immediate pain. She states that she did not fall again. She states that she thought she probably just sprained and decided not to come until her pain got significantly worse. Denies any fevers or chills. Denies any shortness of breath or cough. She is diabetic. She did not hit her head. She did not have loss of consciousness. She denies any di zziness. - Related Data Allergies/Adverse Reactions: No Known Allergies Allergy (Verified 02/28/20 13:52) Past Medical History - General Information source: Patient - Social History Smoking Status: Current Every Day Smoker Family History: Reviewed & Not Pertinent - Past Medical History Cardiac Medical History: Reports: Hx Hypertension - meds not restarted after sepsis incident Denies: Hx Coronary Artery Disease, Hx Heart Attack, Hx Hypercholesterolemia Pulmonary Medical History: Reports: Hx COPD Denies: Hx Asthma, Hx Bronchitis, Hx Pneumonia Neurological Medical History: Denies: Hx Cerebrovascular Accident, Hx Seizures Endocrine Medical History: Reports: Hx Diabetes Mellitus Type 2. Denies: Hx Lynette betes Mellitus Type 1, Hx Hyperthyroidism, Hx Hypothyroidism GI Medical History: Denies: Hx Cirrhosis, Hx Hepatitis Musculoskeletal Medical History: Reports Hx Arthritis, Denies Hx Fibromyalgia Skin Medical History: Denies Hx Eczema, Denies Hx Psoriasis Psychiatric Medical History: Reports: Hx Depression Infectious Medical History: Denies: Hx Hepatitis Past Surgical History: Reports: Hx Cholecystectomy, Hx Hysterectomy - Immunizations Hx Diphtheria, Pertussis, Tetanus Vaccination: No Review of Systems - Review of Systems Constitutional: denies: Chills, Fever EENT: No symptoms reported Cardiovascular: denies: Chest pain, Palpitations, Dizziness, Lightheaded Respiratory: denies: Cough, Hurts to breathe, Short of breath Gastrointestinal: denies: Abdominal pain, Diarrhea, Nausea, Vomiting Musculoskeletal: Other - Right leg pain, right chest wall pain Skin: No symptoms reported -: Yes All other systems reviewed and negative Physical Exam - Vital signs Vitals: Temp Pulse Resp BP Pulse Ox 98.3 F 71 20 143/51 H 98 02/28/20 13:32 02/28/20 13:32 02/28/20 13:32 02/28/20 13:32 02/28/20 13:32 Interpretation: Normal - General General appearance: Appears well, Alert In distress: None - HEENT Head: Normocephalic, Atraumatic Eyes: Normal Pupils: PERRL Ears: Normal External canal: Normal Tympanic membrane: Normal Sinus: Normal Nasal: Normal Mouth/Lips: Normal Mucous membranes: Normal Pharynx: Normal. No: Uvular edema, Potential airway comprom. Neck: Normal, Supple. No: Lymphadenopathy - Respiratory Respiratory status: No respiratory distress Chest status: Nontender Breath sounds: Normal. No: Rales, Rhonchi, Wheezing Chest palpation: Tender - there is TTP over the right anterior axillary chest wall at the level of ribs 7-9. No ecchymosis or crepitus. - Cardiovascular Rhythm: Regular Heart sounds: Normal auscultation Murmur: No - Abdominal Inspection: Normal Distension: No distension Bowel sounds: Normal Tenderness: Nontender. No: Tender, McBurney's point, Islas's sign, Guarding Organomegaly: No organomegaly - Extremities General lower extremity: Other - there is TTP over the right lower leg with noted mild edema. No erythema, blistering, ecchymosis. No TTP over the right knee or right hip. Patient has FROM of right hip and right knee against resistance with 5/5 strenght in flexion and extension. DP pulses intact and equal. - Neurological Neuro grossly intact: Yes Cognition: Normal Orientation: AAOx4 Mo Coma Scale Eye Opening: Spontaneous [place] Coma Scale Verbal: Oriented Mo Coma Scale Motor: Obeys Commands Mo Coma Scale Total: 15 Speech: Normal Cranial nerves: Normal. No: Facial palsy Cerebellar coordination: Normal Motor strength normal: LUE, RUE, LLE, RLE Additional motor exam normals: Equal donations attendant. No: Pronator drift Sensory: Normal - Psychological Associated symptoms: Normal affect, Normal mood - Skin Skin Temperature: Warm Skin Moisture: Dry Skin Color: Normal Course - Re-evaluation Re-evalutation: 02/28/20 Ribs w/Chest X-Ray 02/28/20 13:59 IMPRESSION: Questionable tiny right apical pneumothorax. Right lateral 7th rib fracture, questionable small lytic area adjacent to the site of fracture. Foot X-Ray 02/28/20 14:00 IMPRESSION: No fracture identified. Tibia/Fibula X-Ray 02/28/20 14:00 IMPRESSION: Nondisplaced fracture of the upper fibular diaphysis. Chest CT 02/28/20 15:29 IMPRESSION: No pneumothorax. Healing fractures of the right lateral 5th and 7th rib. The 7th rib fracture was present on the October study, however there is in an area anterior in the rib which appears lytic centrally with sclerotic margins in the cortex concerning for possible underlying lesion, this is best seen on the sagittal reconstruction series 602, image number 12. The right anterior-lateral 5th rib fracture appears new. There are also left 6th through 8th rib fractures with evidence of healing, these were noted on the October exam. Marrow spaces generally appear expanded -lucent, correlate for underlying replacement disease. - Vital Signs Vital signs: Temp Pulse Resp BP Pulse Ox 98.3 F 71 20 143/51 H 98 02/28/20 13:32 02/28/20 13:32 02/28/20 13:32 02/28/20 13:32 02/28/20 13:32 - Laboratory Result Diagrams: 02/28/20 16:01 02/28/20 16:01 Laboratory results interpreted by me: 02/28/20 02/28/20 16:01 16:01 Hgb 10.5 L Hct 31.5 L RDW 18.7 H Plt Count 98 L Glucose 223 H AST 11 L - Diagnostic Test Radiology reviewed: Image reviewed, Reports reviewed Discharge - Discharge Clinical Impression: Lytic lesion of bone on x-ray Fall Qualifiers: Encounter type: initial encounter Qualified Code(s): W19.XXXA - Unspecified fall, initial encounter Hypertension Qualifiers: Hypertension type: essential hypertension Qualified Code(s): I10 - Essential (primary) hypertension Right fibular fracture Qualifiers: Encounter type: initial encounter Fibula location: shaft Fracture type: closed Fracture morphology: other fracture Qualified Code(s): S82.491A - Other fracture of shaft of right fibula, initial encounter for closed fracture Right rib fracture Qualifiers: Encounter type: initial encounter Rib fracture type: multiple ribs Fracture type: closed Qualified Code(s): S22.41XA - Multiple fractures of ribs, right side, initial encounter for closed fracture Diabetes Qualifiers: Diabetes mellitus type: type 2 Diabetes mellitus prison insulin use: unspecified salvage determiner insulin use status Diabetes mellitus complication status: with hyperglycemia Qualified Code(s): E11.65 - Type 2 diabetes mellitus with hyperglycemia Condition: Stable Disposition: HOME, SELF-CARE Instructions: Fibular Shaft Fracture ([facility]), Rib Injuries and Fractures ([facility]) Additional Instructions: Follow-up with your primary care physician as well as orthopedist. Follow with orthopedist about your fibular fracture in your right leg. Also follow-up with your oncologist Dr. Mckoy for concerns for lytic lesions on your ribs. He did have several pulmonary nodules on CT as well. Take medicine as prescribed. No weightbearing on the leg. Please keep the splint on the leg until you have seen orthopedist. Return if any worsening symptoms. Use wheelchair. Prescriptions: Hydrocodone/Acetaminophen [[place] 5-325 mg Tablet] 1 tab PO Q6H #12 tablet Referrals: RAMYA MCKOY MD [ACTIVE STAFF] - Follow up in 3-5 days JILL JIN DO [ACTIVE STAFF] - Follow up in 3-5 days
[2020-02-28 16:15] LABS: ABSOLUTE EOSINOPHILS # (AUTO) 0.1 10^3/uL (0.0-0.6); ABSOLUTE MONOCYTES (AUTO) 0.3 10^3/uL (0.1-1.4); BASOPHILS % (AUTO) 0.5 % (0-2); EOSINOPHILS % (AUTO) 2.3 % (0-6); HEMATOCRIT 31.5 % (36.0-47.0); HEMOGLOBIN 10.5 g/dL (12.0-15.5); LYMPHOCYTES % (AUTO) 30.3 % (13-45); MEAN CORPUSCULAR HEMOGLOBIN 27.1 pg (27.0-33.4); MEAN CORPUSCULAR HGB CONC 33.2 g/dL (32.0-36.0); MEAN CORPUSCULAR VOLUME 81 fl (80-97); MONOCYTES % (AUTO) 5.2 % (3-13); RED BLOOD COUNT 3.87 10^6/uL (3.72-5.28); RED CELL DISTRIBUTION WIDTH 18.7 % (11.5-14.0); SEGMENTED NEUTROPHILS % (AUTO) 61.7 % (42-78); TOTAL CELLS COUNTED % (AUTO) 100 %; WHITE BLOOD COUNT 6.5 10^3/uL (4.0-10.5)
[2020-02-28 16:26] LABS: ALBUMIN 3.8 g/dL (3.5-5.0); ALKALINE PHOSPHATASE 112 U/L (38-126); ANION GAP 11 (5-19); ASPARTATE AMINO TRANSFERASE 11 U/L (14-36); BILIRUBIN,DIRECT 0.3 mg/dL (0.0-0.4); BILIRUBIN,TOTAL 0.4 mg/dL (0.2-1.3); BLOOD UREA NITROGEN 18 mg/dL (7-20); CARBON DIOXIDE 24 mmol/L (22-30); CHLORIDE 107 mmol/L (98-107); GLUCOSE 223 mg/dL (75-110); POTASSIUM 3.8 mmol/L (3.6-5.0); TOTAL PROTEIN 6.5 g/dL (6.3-8.2)
[2020-02-28 16:48] LABS: PLATELET COUNT 98 10^3/uL (150-450)
--- NOTE | 2020-02-28 18:26 | RADIOLOGY REPORT (SQ) ---
EXAM DESCRIPTION: CT CHEST WITH IMAGES COMPLETED DATE/TIME: 02/28/2020 5:53 pm REASON FOR STUDY: trauma, poss pneumothorax COMPARISON: 11/08/[address] TECHNIQUE: CT scan of the chest performed using helical scanning technique with dynamic intravenous contrast injection. Images reviewed with lung, soft tissue and bone windows. Reconstructed coronal and sagittal MPR and MIP images reviewed. All images stored on PACS. All CT scanners at this facility use dose modulation, iterative reconstruction, and/or weight based d osing when appropriate to reduce radiation dose to as low as reasonably achievable (ALARA). [facility]: Dose Right [facility]: CareDose [facility]: Dose Right [facility]: Teradose 4D [facility]: Sport Endurance CONTRAST TYPE AND DOSE: contrast/concentration: Isovue 350.00 mmol/ml; Total Contrast Delivered: 74. 0 ml; Total Saline Delivered: 55.0 ml RENAL FUNCTION: GFR > 60. RADIATION DOSE: CT Rad equipment meets quality standard of care and radiation dose reduction techniq ues were employed. CTDIvol: 13.5 mGy. DLP: 476 mGy-cm. . LIMITATIONS: None. FINDINGS: LUNGS AND PLEURA: Scattered bilateral parenchymal 3-5 mm pulmonary nodules, sales representative gas service nodules are seen in the left lower lobe on image number 34 through 39. No pneumothorax. No effusion s. HILAR AND MEDIASTINAL STRUCTURES: No abnormal nodes. HEART AND VASCULAR STRUCTURES: No aneurysm or dissection. No central pulmonary emboli. No pericardi al effusion. HARDWARE: None in the chest. UPPER ABDOMEN: No acute findings. Limited exam. THYROID AND OTHER SOFT TISSUES: No masses. No adenopathy. BONES: Healing fractures of the right lateral 5th and 7th rib. The 7th rib fracture was present on t october study, however there is in an area anterior in the rib which appears lytic centrally with scl erotic margins in the cortex concerning for possible underlying lesion, this is best seen on the sagi ttal reconstruction series 602, image number 12. The right anterior-lateral 5th rib fracture appears new. There are also left 6th through 8th rib fractures with evidence of healing, these were noted o n the October exam. Marrow spaces generally appear expanded -lucent. OTHER: No other significant finding. IMPRESSION: No pneumothorax. Healing fractures of the right lateral 5th and 7th rib. The 7th rib f racture was present on the October study, however there is in an area anterior in the rib which appears lytic centrally with sclerotic margins in the cortex concerning for possible underlying lesion, this is best seen on the sagittal reconstruction series 602, image number 12. The right anterior-lateral 5th rib fracture appears new. There are also left 6th through 8th rib fractures with evidence of heal ing, these were noted on the October exam. Marrow spaces generally appear expanded -lucent, correlate fo r underlying replacement disease. TECHNICAL DOCUMENTATION: JOB ID: [id number] [place]-72 Quality ID # [id number]: Final reports with documentation of one or more dose reduction techniques (e.g., Au tomated exposure control, adjustment of the mA and/or kV according to patient size, use of iterative reconstruction technique) 2010 [employer]- All Rights Reserved Reading location - IP/workstation name: [email or web address]
[2020-02-28 19:10] VITALS: BP 165/75
== END 2020-02-28 19:16 | disposition home or self-care (01) ==
LOC: ER 13:11
DX: S82.831A Other fracture of upper and lower end of right fibula, initial encounter for closed fracture (principal); S22.41XA Multiple fractures of ribs, right side, initial encounter for closed fracture; W01.0XXA Fall on same level from slipping, tripping and stumbling without subsequent striking against object, initial encounter; Y92.000 Kitchen of unspecified non-institutional (private) residence as the place of occurrence of the external cause; M89.9 Disorder of bone, unspecified; E11.65 Type 2 diabetes mellitus with hyperglycemia; F17.200 Nicotine dependence, unspecified, uncomplicated; I10 Essential (primary) hypertension; J44.9 Chronic obstructive pulmonary disease, unspecified
CPT/HCPCS: 99285; 36415; 85025; 80053; 73630; 71101; 73590; 71260; 29505; A9270